=== PATIENT | male | born 1935 | race American Indian/Alaskan Native ===

== ENCOUNTER 2018-06-16 16:02 | Emergency (ER) | payer MEDICARE ==
[2018-06-16 17:45] LABS: Basophils % (Auto) 1.1 % (0.0-1.8); Eosinophils % (Auto) 2.6 % (0.0-4.3); Hematocrit 25.9 % (35.5-45.6); Hemoglobin 8.6 gm/dl (11.8-15.2); Lymphocytes # (Auto) 1.5 K/mm3 (1.2-5.4); Mean Corpuscular HGB Conc 33 % (32-34); Mean Corpuscular Hemoglobin 29 pg (28-32); Mean Corpuscular Volume 87 fl (84-94); Monocytes # (Auto) 0.7 K/mm3 (0.0-0.8); Monocytes % (Auto) 10.5 % (0.0-7.3); Platelet Count 321 K/mm3 (140-440); Red Blood Count 2.98 M/mm3 (3.65-5.03); Red Cell Distribution Width 15.6 % (13.2-15.2)
[2018-06-16 17:46] LABS: Basophils # (Auto) 0.1 K/mm3 (0.0-0.1); Eosinophils # (Auto) 0.2 K/mm3 (0.0-0.4)
[2018-06-16 17:59] LABS: BUN/Creatinine Ratio 15; Blood Urea Nitrogen 18 mg/dL (9-20); Calcium 8.3 mg/dL (8.4-10.2); Hemolysis Index 12
[2018-06-16 19:16] LABS: Bacteria,Urine 1+ /HPF (Negative); Bilirubin,Urine NEG (Negative); Blood,Urine NEG (Negative); Color,Urine Straw (Yellow); Mucus,Urine FEW /HPF; Protein,Urine <15 mg/dL mg/dL (Negative); Urobilinogen,Urine < 2.0 mg/dL (<2.0)
--- NOTE | 2018-06-16 19:30 | Emergency Department Report ---
ED General Adult HPI - General Chief complaint: Hypoglycemia Stated complaint: HYPOGLYCEMIA Time Seen by Provider: 06/16/18 16:57 Source: patient Mode of arrival: Stretcher Limitations: No Limitations - History of Present Illness Initial comments: Mr. Holley is an 83 yo male with history of eaf-glmmdpo-kexsjvbba diabetes who presents with hypoglycemia. He was found unresponsive by his family members. According to EMS, blood glucose was 20. he is taking glimepiride 2 mg tablets once daily. He stated that he has had a poor appetite although he has been in good health. He explains, "I feel good. I just don't each much of nothing." He feels well now. . Denies any pain or fever. Patient has a host of medical conditions. I reviewed EMR. - Related Data Home Medications Medication Instructions Recorded Confirmed Last Taken Albuterol Sulfate [Ventolin HFA] 1 puff IH QID PRN 05/11/18 05/11/18 Unknown Glimepiride [Amaryl] 2 mg PO QDAY 05/11/18 05/11/18 Unknown Ipratropium/Albuterol Sulfate 1 ampul IH Q6HR 05/11/18 05/11/18 Unknown [DUONEB *Not for PRN Use*] Previous Rx's Medication Instructions Recorded Last Taken Type Amiodarone [Cordarone 200 MG TAB] 200 mg PO BID #60 tablet 05/21/18 Unknown Rx Aspirin [Aspirin BABY CHEW TAB] 81 mg PO QDAY #30 tab.chew 05/21/18 Unknown Rx Carvedilol [Coreg] 6.25 mg PO BID #60 tablet 05/21/18 Unknown Rx Cilostazol [Pletal] 50 mg PO BID #60 tablet 05/21/18 Unknown Rx Furosemide [Lasix TAB] 40 mg PO DAILY #30 tablet 05/21/18 Unknown Rx Lisinopril [Zestril TAB] 5 mg PO QDAY #30 tablet 05/21/18 Unknown Rx Potassium Chloride [K-Dur] 20 meq PO QDAY #30 tablet 05/21/18 Unknown Rx Pravastatin [Pravachol] 40 mg PO QHS #30 tablet 05/21/18 Unknown Rx amLODIPine [Norvasc] 10 mg PO DAILY #30 tablet 05/21/18 Unknown Rx Allergies Allergy/AdvReac Type Severity Reaction Status Date / Time No Known Allergies Allergy Unverified 01/10/15 13:46 ED Review of Systems ROS: Stated complaint: HYPOGLYCEMIA Other details as noted in HPI Comment: All other systems reviewed and negative Constitutional: denies: fever, malaise Cardiovascular: denies: chest pain ED Past Medical Hx - Past Medical History Hx Hypertension: Yes Hx Congestive Heart Failure: Yes (10-12 yrs ago) Hx Diabetes: Yes Hx Asthma: No Hx COPD: No - Surgical History Hx Pacemaker: Yes (AICD) Hx Internal Defibrillator: Yes - Social History Smoking Status: Former Smoker Substance Use Type: None - Medications Home Medications: Home Medications Medication Instructions Recorded Confirmed Last Taken Type Albuterol Sulfate [Ventolin HFA] 1 puff IH QID PRN 05/11/18 05/11/18 Unknown History Glimepiride [Amaryl] 2 mg PO QDAY 05/11/18 05/11/18 Unknown History Ipratropium/Albuterol Sulfate 1 ampul IH Q6HR 05/11/18 05/11/18 Unknown History [DUONEB *Not for PRN Use*] Amiodarone [Cordarone 200 MG TAB] 200 mg PO BID #60 tablet 05/21/18 Unknown Rx Aspirin [Aspirin BABY CHEW TAB] 81 mg PO QDAY #30 tab.chew 05/21/18 Unknown Rx Carvedilol [Coreg] 6.25 mg PO BID #60 tablet 05/21/18 Unknown Rx Cilostazol [Pletal] 50 mg PO BID #60 tablet 05/21/18 Unknown Rx Furosemide [Lasix TAB] 40 mg PO DAILY #30 tablet 05/21/18 Unknown Rx Lisinopril [Zestril TAB] 5 mg PO QDAY #30 tablet 05/21/18 Unknown Rx Potassium Chloride [K-Dur] 20 meq PO QDAY #30 tablet 05/21/18 Unknown Rx Pravastatin [Pravachol] 40 mg PO QHS #30 tablet 05/21/18 Unknown Rx amLODIPine [Norvasc] 10 mg PO DAILY #30 tablet 05/21/18 Unknown Rx ED Physical Exam - General Limitations: No Limitations General appearance: alert, in no apparent distress, other (eating sandwich alert , talkative) - Head Head exam: Present: atraumatic, normocephalic - Eye Eye exam: Present: normal appearance - ENT ENT exam: Present: mucous membranes moist - Neck Neck exam: Present: normal inspection. Absent: tenderness, meningismus - Respiratory Respiratory exam: Present: normal lung sounds bilaterally. Absent: respiratory distress, wheezes, rales, rhonchi - Cardiovascular Cardiovascular Exam: Present: regular rate, normal rhythm, normal heart sounds. Absent: systolic murmur, diastolic murmur, rubs, gallop - GI/Abdominal GI/Abdominal exam: Present: soft. Absent: distended, tenderness - Rectal Rectal exam: Present: deferred - Extremities Exam Extremities exam: Present: full ROM - Neurological Exam Neurological exam: Present: alert, oriented X3 - Psychiatric Psychiatric exam: Present: normal affect, normal mood - Skin Skin exam: Present: warm, dry, intact, normal color. Absent: rash ED Course Vital Signs 06/16/18 16:46 Temperature 98.2 F Pulse Rate 59 L Respiratory 18 Rate Blood Pressure 141/67 O2 Sat by Pulse 100 Oximetry ED Medical Decision Making - Lab Data Result diagrams: 06/16/18 17:26 06/16/18 17:26 Laboratory Results - last 24 hr 06/16/18 06/16/18 06/16/18 16:43 17:26 17:26 WBC 6.5 RBC 2.98 L Hgb 8.6 L Hct 25.9 L MCV 87 MCH 29 MCHC 33 RDW 15.6 H Plt Count 321 Lymph % (Auto) 23.0 [facility] % (Auto) 10.5 H Eos % (Auto) 2.6 Baso % (Auto) 1.1 Lymph # 1.5 [facility] # 0.7 Eos # 0.2 Baso # 0.1 Seg Neutrophils % 62.8 Seg Neutrophils # 4.1 Sodium 134 L Potassium 3.8 Chloride 104.3 Carbon Dioxide 21 L Anion Gap 13 BUN 18 Creatinine 1.2 Estimated GFR > 60 BUN/Creatinine Ratio 15 Glucose 63 L POC Glucose 72 Calcium 8.3 L Urine Color Urine Turbidity Urine pH Ur Specific [place] Urine Protein Urine Glucose (UA) Urine Ketones Urine Blood Urine Nitrite Urine Bilirubin Urine Urobilinogen Ur Leukocyte Esterase Urine WBC (Auto) Urine RBC (Auto) U Epithel Cells (Auto) Urine Bacteria (Auto) Urine Mucus 06/16/18 06/16/18 18:45 18:50 WBC RBC Hgb Hct MCV MCH MCHC RDW Plt Count Lymph % (Auto) [facility] % (Auto) Eos % (Auto) Baso % (Auto) Lymph # [facility] # Eos # Baso # Seg Neutrophils % Seg Neutrophils # Sodium Potassium Chloride Carbon Dioxide Anion Gap BUN Creatinine Estimated GFR BUN/Creatinine Ratio Glucose POC Glucose 112 H Calcium Urine Color Straw Urine Turbidity Clear Urine pH 5.0 Ur Specific [place] 1.005 Urine Protein <15 mg/dl Urine Glucose (UA) Neg Urine Ketones Neg Urine Blood Neg Urine Nitrite Neg Urine Bilirubin Neg Urine Urobilinogen < 2.0 Ur Leukocyte Esterase Neg Urine WBC (Auto) 2.0 Urine RBC (Auto) 4.0 U Epithel Cells (Auto) 1.0 Urine Bacteria (Auto) 1+ Urine Mucus Few - Medical Decision Making Mr. Holley has hypoglycemia caused by decreased food intake and second- generation sulfonylurea, glimepiride. Normal kidney function on today's labs. Anemia noted which is baseline for patient. He feels well. He ate a snack. According to literature search, Peak of effect of glimepiride is 2-3 hours. Patient has been in ED for over 3 hours thus far. I have asked my colleague to observe Mr. Holley for 6-8 hours in the ED before discharge. I have also recommended to Mr. Holley that he should no longer use the medication Glimepiride. He checks his blood sugars daily. Normal reading range from 100-106 mg/dl Critical care attestation.: If time is entered above; I have spent that time in minutes in the direct care of this critically ill patient, excluding procedure time. ED Disposition Clinical Impression: Hypoglycemia Disposition: DC-01 TO HOME OR SELFCARE Is pt being admited?: No Does the pt Need Aspirin: No Condition: Stable Instructions: Diabetic Hypoglycemia (ED) Additional Instructions: Please stop taking your diabetes medication. This medication is called glimepiride.
[2018-06-16] MEDS ORDERED: ZOFRAN ONE (20:24)
[2018-06-16 23:36] VITALS: BP 129/61
== END 2018-06-16 22:45 | disposition home or self-care (01) ==
LOC: ED 16:02
DX: E11.649 Type 2 diabetes mellitus with hypoglycemia without coma (principal); I11.0 Hypertensive heart disease with heart failure; Z79.82 Long term (current) use of aspirin; Z95.0 Presence of cardiac pacemaker; Z87.891 Personal history of nicotine dependence
CPT/HCPCS: 36415; 80048; 81001; 82962; 85025; 99284; J2405

== ENCOUNTER 2019-04-21 18:45 | Inpatient (IN) | payer MEDICARE ==
--- NOTE | 2019-04-21 19:27 | Emergency Department Report ---
- General Chief complaint: Weakness Stated complaint: HYPOTENSION Time Seen by Provider: 04/21/19 19:00 Source: patient, EMS, old records reviewed Mode of arrival: Stretcher Limitations: Physical Limitation - History of Present Illness Initial comments: 84-year-old male with a past medical history of CHF with EF of 30-35% status post AICD, diabetes (not currently on meds) meds, and hypertension presents to the hospital with labile blood pressure and low glucose. Patient states he feels fine and that he is here because below. EMS reports that family has been checking blood pressure throughout the day and has been fluctuating between a low and normal read. Patient had a glucose of 63 upon EMS arrival he was given 15 g of instant glucose. Patient complains of a cough 1 week without fever. He has chronic leg edema that is unchanged. He reports decreased appetite and only had a small breakfast this a.m. He denies nausea, vomiting, chest pain, shortness of breath, or dysuria. PMD DR Santos. Drawing Tender: Dr. Barrientos. Systems Tester Dr. Rao patient does not see a zinc skimmer. Severity scale (0 -10): 0 - Related Data Home Medications Medication Instructions Recorded Confirmed Last Taken Albuterol Sulfate [Ventolin HFA] 1 puff IH QID PRN 05/11/18 05/11/18 Unknown Glimepiride [Amaryl] 2 mg PO QDAY 05/11/18 05/11/18 Unknown Ipratropium/Albuterol Sulfate 1 ampul IH Q6HR 05/11/18 05/11/18 Unknown [DUONEB *Not for PRN Use*] Previous Rx's Medication Instructions Recorded Last Taken Type Amiodarone [Cordarone 200 MG TAB] 200 mg PO BID #60 tablet 05/21/18 Unknown Rx Aspirin [Aspirin BABY CHEW TAB] 81 mg PO QDAY #30 tab.chew 05/21/18 Unknown Rx Carvedilol [Coreg] 6.25 mg PO BID #60 tablet 05/21/18 Unknown Rx Cilostazol [Pletal] 50 mg PO BID #60 tablet 05/21/18 Unknown Rx Furosemide [Lasix TAB] 40 mg PO DAILY #30 tablet 05/21/18 Unknown Rx Lisinopril [Zestril TAB] 5 mg PO QDAY #30 tablet 05/21/18 Unknown Rx Potassium Chloride [K-Dur] 20 meq PO QDAY #30 tablet 05/21/18 Unknown Rx Pravastatin [Pravachol] 40 mg PO QHS #30 tablet 05/21/18 Unknown Rx amLODIPine [Norvasc] 10 mg PO DAILY #30 tablet 05/21/18 Unknown Rx Allergies Allergy/AdvReac Type Severity Reaction Status Date / Time No Known Allergies Allergy Unverified 01/10/15 13:46 ED Review of Systems ROS: Stated complaint: HYPOTENSION Other details as noted in HPI Comment: All other systems reviewed and negative ED Past Medical Hx - Past Medical History Hx Hypertension: Yes Hx Congestive Heart Failure: Yes (10-12 yrs ago) Hx Diabetes: Yes Hx Asthma: No Hx COPD: No - Surgical History Hx Pacemaker: Yes (AICD) Hx Internal Defibrillator: Yes - Social History Smoking Status: Never Smoker - Medications Home Medications: Home Medications Medication Instructions Recorded Confirmed Last Taken Type Albuterol Sulfate [Ventolin HFA] 1 puff IH QID PRN 05/11/18 05/11/18 Unknown History Glimepiride [Amaryl] 2 mg PO QDAY 05/11/18 05/11/18 Unknown History Ipratropium/Albuterol Sulfate 1 ampul IH Q6HR 05/11/18 05/11/18 Unknown History [DUONEB *Not for PRN Use*] Amiodarone [Cordarone 200 MG TAB] 200 mg PO BID #60 tablet 05/21/18 Unknown Rx Aspirin [Aspirin BABY CHEW TAB] 81 mg PO QDAY #30 tab.chew 05/21/18 Unknown Rx Carvedilol [Coreg] 6.25 mg PO BID #60 tablet 05/21/18 Unknown Rx Cilostazol [Pletal] 50 mg PO BID #60 tablet 05/21/18 Unknown Rx Furosemide [Lasix TAB] 40 mg PO DAILY #30 tablet 05/21/18 Unknown Rx Lisinopril [Zestril TAB] 5 mg PO QDAY #30 tablet 05/21/18 Unknown Rx Potassium Chloride [K-Dur] 20 meq PO QDAY #30 tablet 05/21/18 Unknown Rx Pravastatin [Pravachol] 40 mg PO QHS #30 tablet 05/21/18 Unknown Rx amLODIPine [Norvasc] 10 mg PO DAILY #30 tablet 05/21/18 Unknown Rx ED Physical Exam - General Limitations: Physical Limitation - Other Other exam information: General: No limitations, patient is alert in no acute distress Head exam: Atraumatic, normocephalic Eyes exam: Normal appearance, pupils equal reactive to light, extraocular movements intact ENT: Moist mucous membrane, normal oropharynx Neck exam: Normal inspection, full range of motion, no meningismus nontender Respiratory exam: Clear to auscultation bilateral, no wheezes, rales, crackles, pacemaker to left chest wall Cardiovascular: Normal rate and rhythm Abdomen: Soft, nondistended, and nontender, with normal bowel sounds, no rebound, or guarding Extremity: Bilateral leg edema was equal bilaterally without calf tenderness Back: Normal Inspection, full range of motion, no tenderness Neurologic: Alert, oriented x3, cranial nerves intact, no motor or sensory deficit Psychiatric: normal affect, normal mood Skin: Warm, dry, intact ED Course Vital Signs 04/21/19 04/21/19 04/21/19 19:08 19:16 19:30 Temperature 98.3 F Pulse Rate 80 82 81 Respiratory 14 15 20 Rate Blood Pressure 100/37 100/37 Blood Pressure 100/37 [Left] O2 Sat by Pulse 97 100 98 Oximetry 04/21/19 04/21/19 04/21/19 19:46 20:00 20:16 Temperature Pulse Rate 78 76 83 Respiratory 18 20 16 Rate Blood Pressure 100/37 82/41 88/41 Blood Pressure [Left] O2 Sat by Pulse 99 100 99 Oximetry 04/21/19 04/21/19 04/21/19 20:30 20:46 21:00 Temperature Pulse Rate 82 81 82 Respiratory 24 26 H 19 Rate Blood Pressure 88/41 88/41 92/46 Blood Pressure [Left] O2 Sat by Pulse 98 97 95 Oximetry 04/21/19 04/21/19 04/21/19 21:16 21:30 21:46 Temperature Pulse Rate 79 78 81 Respiratory 21 14 21 Rate Blood Pressure 100/40 100/40 90/41 Blood Pressure [Left] O2 Sat by Pulse 93 95 96 Oximetry 04/21/19 04/21/19 04/21/19 22:00 22:16 22:30 Temperature Pulse Rate 83 82 84 Respiratory 22 18 20 Rate Blood Pressure 99/48 90/41 90/41 Blood Pressure [Left] O2 Sat by Pulse 97 99 100 Oximetry 04/21/19 04/21/1904/21/19 22:46 23:00 23:07 Temperature Pulse Rate 83 82 Respiratory 20 17 16 Rate Blood Pressure 82/43 92/39 Blood Pressure [Left] O2 Sat by Pulse 98 99 98 Oximetry 04/22/19 00:00 Temperature 98.3 F Pulse Rate Respiratory Rate Blood Pressure Blood Pressure [Left] O2 Sat by Pulse Oximetry - Reevaluation(s) Reevaluation #1: 04/21/19 21:26 Patient received 500 mL bolus of fluid for systolic pressure in the 80s. Systolic blood pressure increased to 100. Additional 500 mL bolus ordered. Patient is not short of breath at this time. Nurse's unable to pass a Meyer coude was also attempted. Patient denies any difficulty urinating and does not have any clinical signs of urinary retention on palpation. Condom cath placed. - Consultations Consultation #1: 04/21/19 20:[address] Antonio since he is covering Dr Santos's patients until April 24. Dr. Antonio requests admission to the hospitalist. - Central Line Placement Right Femoral Consent Obtained: written consent Time Out Performed: Yes Patient Placed on Monitor/Pulse Ox: Yes Prep: mask, gown, gloves Central Line Prep: Chlorhexidine scrub, sterile drapes applied Local Anesthesia Used: Lidocaine 1% Amount of Anesthesia Used (mls): 5 Ultrasound Used for Placement: Yes Central Line Lumen Inserted: triple Bloods Obtained for Lab: Yes Central Line Position: good blood return, all ports aspirated, flus, sutured in place with nyl Dressing Applied: Tegaderm Patient Tolerated Procedure: well Complications: arterial puncture/cannula (puncture without cannulation) Additional Comments: central line placed just after transfer to ICU ED Medical Decision Making - Lab Data Result diagrams: 04/21/19 19:29 04/21/19 19:29 Lab Results 04/21/19 04/21/19 04/21/19 Range/Units 19:18 19:29 19:29 WBC 14.6 H (4.5-11.0) K/mm3 RBC 3.26 L (3.65-5.03) M/mm3 Hgb 9.6 L (11.8-15.2) gm/dl Hct 28.1 L (35.5-45.6) % MCV 86 (84-94) fl MCH 29 (28-32) pg MCHC 34 (32-34) % RDW 15.5 H (13.2-15.2) % Plt Count 308 (140-440) K/mm3 Lymph % (Auto) 6.1 L (13.4-35.0) % [facility] [facility] % (Auto) 6.2 (0.0-7.3) % Eos % (Auto) 0.2 (0.0-4.3) % Baso % (Auto) 0.2 (0.0-1.8) % Lymph # 0.9 L (1.2-5.4) K/mm3 [facility] [facility] # 0.9 H (0.0-0.8) K/mm3 Eos # 0.0 (0.0-0.4) K/mm3 Baso # 0.0 (0.0-0.1) K/mm3 Seg Neutrophils % 87.3 H (40.0-70.0) % Seg Neutrophils # 12.7 H (1.8-7.7) K/mm3 PT (12.2-14.9) Sec. INR (0.87-1.13) APTT (24.2-36.6) Sec. Sodium 129 L (137-145) mmol/L Potassium 3.4 L (3.6-5.0) mmol/L Chloride 94.2 L (98-107) mmol/L Carbon Dioxide 18 L (22-30) mmol/L Anion Gap 20 mmol/L BUN 80 H (9-20) mg/dL Creatinine 6.0 H (0.8-1.5) mg/dL Estimated GFR 11 ml/min BUN/Creatinine Ratio 13 % Glucose 65 L (75-100) mg/dL POC Glucose 67 L (70-105) Calcium 8.7 (8.4-10.2) mg/dL Magnesium 2.20 (1.7-2.3) mg/dL Total Bilirubin 0.50 (0.1-1.2) mg/dL AST 45 H (5-40) units/L ALT 20 (7-56) units/L Alkaline Phosphatase 77 (35-129) units/L Total Creatine Kinase (55-170) units/L CK-MB (CK-2) (0.0-4.0) ng/mL CK-MB (CK-2) Rel Index (0-4) Troponin T (0.00-0.029) ng/mL Total Protein 7.4 (6.3-8.2) g/dL Albumin 3.0 L (3.9-5) g/dL Albumin/Globulin Ratio 0.7 % Triglycerides (2-149) mg/dL Cholesterol (50-199) mg/dL LDL Cholesterol Direct (50-130) mg/dL HDL Cholesterol (40-59) mg/dL Cholesterol/HDL Ratio % 04/21/19 04/21/19 04/21/19 Range/Units 19:29 19:29 20:45 WBC (4.5-11.0) K/mm3 RBC (3.65-5.03) M/mm3 Hgb (11.8-15.2) gm/dl Hct (35.5-45.6) % MCV (84-94) fl MCH (28-32) pg MCHC (32-34) % RDW (13.2-15.2) % Plt Count (140-440) K/mm3 Lymph % (Auto) (13.4-35.0) % [facility] % (Auto) (0.0-7.3) % Eos % (Auto) (0.0-4.3) % Baso % (Auto) (0.0-1.8) % Lymph # (1.2-5.4) K/mm3 [facility] # (0.0-0.8) K/mm3 Eos # (0.0-0.4) K/mm3 Baso # (0.0-0.1) K/mm3 Seg Neutrophils % (40.0-70.0) % Seg Neutrophils # (1.8-7.7) K/mm3 PT 15.1 H (12.2-14.9) Sec. INR 1.22 H (0.87-1.13) APTT 25.3 (24.2-36.6) Sec. Sodium (137-145) mmol/L Potassium (3.6-5.0) mmol/L Chloride (98-107) mmol/L Carbon Dioxide (22-30) mmol/L Anion Gap mmol/L BUN (9-20) mg/dL Creatinine (0.8-1.5) mg/dL Estimated GFR ml/min BUN/Creatinine Ratio % Glucose (75-100) mg/dL POC Glucose 56 L (70-105) Calcium (8.4-10.2) mg/dL Magnesium (1.7-2.3) mg/dL Total Bilirubin (0.1-1.2) mg/dL AST (5-40) units/L ALT (7-56) units/L Alkaline Phosphatase (35-129) units/L Total Creatine Kinase 1462 H (55-170) units/L CK-MB (CK-2) 10.4 H (0.0-4.0) ng/mL CK-MB (CK-2) Rel Index 0.7 (0-4) Troponin T 0.126 H* (0.00-0.029) ng/mL Total Protein (6.3-8.2) g/dL Albumin (3.9-5) g/dL Albumin/Globulin Ratio % Triglycerides 64 (2-149) mg/dL Cholesterol 105 (50-199) mg/dL LDL Cholesterol Direct 45 L (50-130) mg/dL HDL Cholesterol 47 (40-59) mg/dL Cholesterol/HDL Ratio 2.23 % - EKG Data -: EKG Interpreted by [facility] EKG shows normal: sinus rhythm, axis (qrs -69), QRS complexes (qrsd 130), ST-T waves (no stemi) Rate: normal (81) - EKG Data When compared to previous EKG there are: no significant change - Radiology Data Radiology results: report reviewed CHEST 1 VIEW 7:33 PM INDICATION / CLINICAL INFORMATION: Weakness. COMPARISON: 05/11/2018. FINDINGS: SUPPORT DEVICES: The position of the single lead left subclavian ICD has not changed. HEART / MEDIASTINUM: There is mild cardiomegaly with a left ventricular configuration. Calcification is present in the aortic arch without aneurysm. LUNGS / PLEURA: No acute parenchymal or pleural disease is seen. No pneumothorax. ADDITIONAL FINDINGS: No significant additional findings. IMPRESSION: No acute abnormality or significant change. - Medical Decision Making Patient with borderline hypotension that appears to be responsive to IV fluid boluses at this time. Patient presents with acute renal failure with uremia and borderline hypoglycemia. Awaiting urine collection at this. Patient to the hospitalist service and Dr. Santos is out of town (Dr Antonio requests hospitalist admission). Elevated troponin noted in likely related to acute renal insufficiency. Repeat pending. Thyroid tests and cortisol also pending at disposition. - Differential Diagnosis infection, dehydration, overmedication, arrhythmia,mi Critical Care Time: No Critical care attestation.: If time is entered above; I have spent that time in minutes in the direct care of this critically ill patient, excluding procedure time. ED Disposition Clinical Impression: Acute renal failure, Hyponatremia, Hypoglycemia, Elevated CK, Elevated troponin, Anemia, Chronic CHF Disposition: OP ADMIT IP TO THIS HOSP Is pt being admited?: Yes Condition: Stable Time of Disposition: 21:24 (Dr. Caballero/hospitalist)
[2019-04-21 19:45] LABS: Basophils % (Auto) 0.2 % (0.0-1.8); Eosinophils % (Auto) 0.2 % (0.0-4.3); Hematocrit 28.1 % (35.5-45.6); Hemoglobin 9.6 gm/dl (11.8-15.2); Lymphocytes # (Auto) 0.9 K/mm3 (1.2-5.4); Lymphocytes % (Auto) 6.1 % (13.4-35.0); Mean Corpuscular HGB Conc 34 % (32-34); Mean Corpuscular Volume 86 fl (84-94); Monocytes # (Auto) 0.9 K/mm3 (0.0-0.8); Monocytes % (Auto) 6.2 % (0.0-7.3); Platelet Count 308 K/mm3 (140-440); Red Blood Count 3.26 M/mm3 (3.65-5.03); Red Cell Distribution Width 15.5 % (13.2-15.2)
[2019-04-21 19:56] LABS: INR 1.22 (0.87-1.13)
[2019-04-21 19:57] LABS: Partial Thromboplastin Time 25.3 Sec. (24.2-36.6)
[2019-04-21 20:02] LABS: Creatine Kinase MB 10.4 ng/mL (0.0-4.0)
[2019-04-21 20:03] LABS: Calcium 8.7 mg/dL (8.4-10.2)
[2019-04-21] MEDS ORDERED: ASPIRIN PO ONE (20:10)
[2019-04-21] MEDS ORDERED: NACL 0.9% 500 ML 500 ML IV ONE ×2 (20:13→21:07)
[2019-04-21] MEDS ORDERED: NACL 0.9% 500 ML 500 ML ONE (20:15)
[2019-04-21] MEDS ORDERED: D50W (25GM) Vial IV ONE (20:41)
[2019-04-21 20:44] LABS: Chol/HDL Ratio 2.23 %
[2019-04-21] MEDS ORDERED: D50W (25GM) Syringe IV ONE (20:45)
--- NOTE | 2019-04-21 21:04 | XRay Report ---
CHEST 1 VIEW 7:33 PM INDICATION / CLINICAL INFORMATION: Weakness. COMPARISON: 05/11/2018. FINDINGS: SUPPORT DEVICES: The position of the single lead left subclavian ICD has not changed. HEART / MEDIASTINUM: There is mild cardiomegaly with a left ventricular configuration. Calcification is present in the aortic arch without aneurysm. LUNGS / PLEURA: No acute parenchymal or pleural disease is seen. No pneumothorax. ADDITIONAL FINDINGS: No significant additional findings. IMPRESSION: No acute abnormality or significant change. Signer Name: Brock Landa MD Signed: 04/21/2019 9:00 PM Workstation Name: [id number]
[2019-04-21 22:02] LABS: Free T4 (Free Thyroxine) 1.71 ng/dL (0.76-1.46)
[2019-04-21] MEDS ORDERED: ZOSYN/NS 2.25 GM/50ML 2.25 GM/50 ML BAG IV ONE (22:07)
--- NOTE | 2019-04-21 22:10 | History and Physical Report ---
History of Present Illness Date of examination: 04/21/19 History of present illness: 84-year-old male with a history of CHF, coronary artery disease, diabetes, hypertension, hyperlipidemia, PVD was brought to the emergency room by family because of generalized weakness. His blood sugar and blood pressure were low at home. He has poor appetite over the last 2 months, only at breakfast today, took his medications. He needs assistance to ambulate Review of systems Constitutional: no weight loss, chills, fever Ears, eyes, nose, mouth and throat: no nasal congestion, no nasal discharge, no sinus pressure, no vision change, no red eye. Neck: No neck pain or rigidity. Cardiovascular: no palpitations, chest pain Respiratory: no cough, shortness of breath Gastrointestinal: no hematochezia, abdominal pain Genitourinary : no frequency , no hematuria Musculoskeletal: no joint swelling or muscle ache Integumentary: no rash, no pruritis Neurological: no parathesias, no focal weakness Endocrine: no cold or heat intolerance, no polyuria or polydipsia Hematologic/Lymphatic: no easy bruising, no easy bleeding, no gland swelling Allergic/Immunologic: no urticaria, no angioedema. PAST MEDICAL HISTORY:CAD, diabetes, hypertension, hyperlipidemia, PVD, CHF PAST SURGICAL HISTORY: AICD SOCIAL HISTORY: Denies alcohol, drugs, tobacco FAMILY HISTORY: Hypertension Medications and Allergies Allergies Allergy/AdvReac Type Severity Reaction Status Date / Time No Known Allergies Allergy Unverified 01/10/15 13:46 Home Medications Medication Instructions Recorded Confirmed Last Taken Type Albuterol Sulfate [Ventolin HFA] 1 puff IH QID PRN 05/11/18 05/11/18 Unknown History Glimepiride [Amaryl] 2 mg PO QDAY 05/11/18 05/11/18 Unknown History Ipratropium/Albuterol Sulfate 1 ampul IH Q6HR 05/11/18 05/11/18 Unknown History [DUONEB *Not for PRN Use*] Amiodarone [Cordarone 200 MG TAB] 200 mg PO BID #60 tablet 05/21/18 Unknown Rx Aspirin [Aspirin BABY CHEW TAB] 81 mg PO QDAY #30 tab.chew 05/21/18 Unknown Rx Carvedilol [Coreg] 6.25 mg PO BID #60 tablet 05/21/18 Unknown Rx Cilostazol [Pletal] 50 mg PO BID #60 tablet 05/21/18 Unknown Rx Furosemide [Lasix TAB] 40 mg PO DAILY #30 tablet 05/21/18 Unknown Rx Lisinopril [Zestril TAB] 5 mg PO QDAY #30 tablet 05/21/18 Unknown Rx Potassium Chloride [K-Dur] 20 meq PO QDAY #30 tablet 05/21/18 Unknown Rx Pravastatin [Pravachol] 40 mg PO QHS #30 tablet 05/21/18 Unknown Rx amLODIPine [Norvasc] 10 mg PO DAILY #30 tablet 05/21/18 Unknown Rx Active Meds: Active Medications Piperacillin Sod/Tazobactam Sod (Zosyn/Ns 2.25 Gm/50ml) 2.25 gm in 50 mls @ 100 mls/hr IV ONCE ONE; Protocol Stop: 04/21/19 22:36 Dextrose/Sodium Chloride (D5/0.45ns) 1,000 mls @ 50 mls/hr IV DIRECT ALICIA Exam - Physical Exam Narrative exam: General Apperance: The patient lying in bed, breathing comfortable HEENT: Normocephalic, atraumatic. Pupils equally round and reactive to light, EOMI, no sclericterus or JVD or thyromegaly or nodule. , no carotid bruit, mucous membranes moist, no exudate or erythema Heart: S1-S2, regular is rhythm Lungs: Clear to auscultation bilaterally, breathing comfortable Abdomen: Positive bowel sounds, soft, nontender, nondistended, no organomegaly Extremities: + edema, no cyanosis clubbing Skin: no rash, nodule, warm and dry Neuro: cranial nerves 2-12 intact, speech is fluent, moves all 4 extremities - Constitutional Vitals: Temp Pulse Resp BP Pulse Ox 98.3 F 83 22 99/48 97 04/21/19 19:08 04/21/19 22:00 04/21/19 22:00 04/21/19 22:00 04/21/19 22:00 Results - Labs CBC & Chem 7: 04/21/19 19:29 04/21/19 19:29 Labs: Abnormal lab results 04/21/19 04/21/19 04/21/19 Range/Units 19:18 19:29 19:29 WBC 14.6 H (4.5-11.0) K/mm3 RBC 3.26 L (3.65-5.03) M/mm3 Hgb 9.6 L (11.8-15.2) gm/dl Hct 28.1 L (35.5-45.6) % RDW 15.5 H (13.2-15.2) % Lymph % (Auto) 6.1 L (13.4-35.0) % Lymph # 0.9 L (1.2-5.4) K/mm3 Martin # 0.9 H (0.0-0.8) K/mm3 Seg Neutrophils % 87.3 H (40.0-70.0) % Seg Neutrophils # 12.7 H (1.8-7.7) K/mm3 PT (12.2-14.9) Sec. INR (0.87-1.13) Sodium 129 L (137-145) mmol/L Potassium 3.4 L (3.6-5.0) mmol/L Chloride 94.2 L (98-107) mmol/L Carbon Dioxide 18 L (22-30) mmol/L BUN 80 H (9-20) mg/dL Creatinine 6.0 H (0.8-1.5) mg/dL Glucose 65 L (75-100) mg/dL POC Glucose 67 L (70-105) AST 45 H (5-40) units/L Total Creatine Kinase (55-170) units/L CK-MB (CK-2) (0.0-4.0) ng/mL Troponin T (0.00-0.029) ng/mL Albumin 3.0 L (3.9-5) g/dL LDL Cholesterol Direct (50-130) mg/dL Free T4 (0.76-1.46) ng/dL 04/21/19 04/21/19 04/21/19 Range/Units 19:29 19:29 19:29 WBC (4.5-11.0) K/mm3 RBC (3.65-5.03) M/mm3 Hgb (11.8-15.2) gm/dl Hct (35.5-45.6) % RDW (13.2-15.2) % Lymph % (Auto) (13.4-35.0) % Lymph # (1.2-5.4) K/mm3 Martin # (0.0-0.8) K/mm3 Seg Neutrophils % (40.0-70.0) % Seg Neutrophils # (1.8-7.7) K/mm3 PT 15.1 H (12.2-14.9) Sec. INR 1.22 H (0.87-1.13) Sodium (137-145) mmol/L Potassium (3.6-5.0) mmol/L Chloride (98-107) mmol/L Carbon Dioxide (22-30) mmol/L BUN (9-20) mg/dL Creatinine (0.8-1.5) mg/dL Glucose (75-100) mg/dL POC Glucose (70-105) AST (5-40) units/L Total Creatine Kinase 1462 H (55-170) units/L CK-MB (CK-2) 10.4 H (0.0-4.0) ng/mL Troponin T 0.126 H* (0.00-0.029) ng/mL Albumin (3.9-5) g/dL LDL Cholesterol Direct 45 L (50-130) mg/dL Free T4 1.71 H (0.76-1.46) ng/dL 04/21/19 Range/Units 20:45 WBC (4.5-11.0) K/mm3 RBC (3.65-5.03) M/mm3 Hgb (11.8-15.2) gm/dl Hct (35.5-45.6) % RDW (13.2-15.2) % Lymph % (Auto) (13.4-35.0) % Lymph # (1.2-5.4) K/mm3 Martin # (0.0-0.8) K/mm3 Seg Neutrophils % (40.0-70.0) % Seg Neutrophils # (1.8-7.7) K/mm3 PT (12.2-14.9) Sec. INR (0.87-1.13) Sodium (137-145) mmol/L Potassium (3.6-5.0) mmol/L Chloride (98-107) mmol/L Carbon Dioxide (22-30) mmol/L BUN (9-20) mg/dL Creatinine (0.8-1.5) mg/dL Glucose (75-100) mg/dL POC Glucose 56 L (70-105) AST (5-40) units/L Total Creatine Kinase (55-170) units/L CK-MB (CK-2) (0.0-4.0) ng/mL Troponin T (0.00-0.029) ng/mL Albumin (3.9-5) g/dL LDL Cholesterol Direct (50-130) mg/dL Free T4 (0.76-1.46) ng/dL - Imaging and Cardiology EKG: image reviewed Chest x-ray: report reviewed Assessment and Plan Assessment Acute renal failure on chronic Hypotension, source unclear at this point SIRS Abnormal cardiac enzymes hypoglycemia secondary to poor appetite Rhabdomyolysis CHF, stable Coronary Artery disease Hyperlipidemia Peripheral vascular disease Plan Admit to medicine Start gentle IV fluid, renal was consulted to see the patient Cardiac enzymes, echo, consult cardiology monitor blood sugar, encourage oral intake Hold all antihypertensives and diabetic medications Check urinalysis, blood cultures, give a dose of Zosyn DVT prophylaxis Addendum Patient became more hypotensive with fluid resuscitation Start dopamine drip, consult critical care Upgrade to ICU
[2019-04-21] MEDS ORDERED: ZOFRAN IV PRN (22:11)
[2019-04-21] MEDS ORDERED: SODIUM CHLORIDE FLUSH SYRINGE 10 ML IV PRN (22:11)
[2019-04-21 22:55] LABS: Creatine Kinase MB 11.2 ng/mL (0.0-4.0)
[2019-04-21] MEDS ORDERED: D5/0.45NS 1,000 ML IV SCH (23:00)
[2019-04-21] MEDS ORDERED: D5W 1,000 ML IV ONE (23:25)
[2019-04-21] MEDS ORDERED: D5NS 1,000 ML IV SCH (23:45)
--- NOTE | 2019-04-21 23:56 | Consultation ---
History of Present Illness - Reason for Consult Consult date: 04/21/19 acute renal failure, hypokalemia - History of Present Illness The patient is an 84 Yo male with history significant for Diabetes, Hypertension, Hyperlipidemia, CAD, CHF and PVD who was brought to the emergency room by family for evaluation of generalized weakness. Patient is a poor historian and there was no family member at the bedside. He has poor appetite over the last 2 months with poor PO intake. he is taking his medications. His blood sugar and blood pressure were low at home. In the ED his BP was low around 80/40. Labs were significant for creatinine 6, K 3.4, Sodium 129 and bicarb 18. Nephrology was consulted for further evaluation. Past History Past Medical History: CAD, diabetes, heart failure, hypertension, hyperlipidemia Medications and Allergies Allergies Allergy/AdvReac Type Severity Reaction Status Date / Time No Known Allergies Allergy Unverified 01/10/15 13:46 Home Medications Medication Instructions Recorded Confirmed Last Taken Type Albuterol Sulfate [Ventolin HFA] 1 puff IH QID PRN 05/11/18 05/11/18 Unknown History Glimepiride [Amaryl] 2 mg PO QDAY 05/11/18 05/11/18 Unknown History Ipratropium/Albuterol Sulfate 1 ampul IH Q6HR 05/11/18 05/11/18 Unknown History [DUONEB *Not for PRN Use*] Amiodarone [Cordarone 200 MG TAB] 200 mg PO BID #60 tablet 05/21/18 Unknown Rx Aspirin [Aspirin BABY CHEW TAB] 81 mg PO QDAY #30 tab.chew 05/21/18 Unknown Rx Carvedilol [Coreg] 6.25 mg PO BID #60 tablet 05/21/18 Unknown Rx Cilostazol [Pletal] 50 mg PO BID #60 tablet 05/21/18 Unknown Rx Furosemide [Lasix TAB] 40 mg PO DAILY #30 tablet 05/21/18 Unknown Rx Lisinopril [Zestril TAB] 5 mg PO QDAY #30 tablet 05/21/18 Unknown Rx Potassium Chloride [K-Dur] 20 meq PO QDAY #30 tablet 05/21/18 Unknown Rx Pravastatin [Pravachol] 40 mg PO QHS #30 tablet 05/21/18 Unknown Rx amLODIPine [Norvasc] 10 mg PO DAILY #30 tablet 05/21/18 Unknown Rx Active Meds: Active Medications Acetaminophen (Tylenol) 650 mg PO Q4H PRN PRN Reason: Pain MILD(1-3)/Fever >100.5/BLAKE Enoxaparin Sodium (Lovenox) 30 mg SUB-Q QDAY ALICIA Dextrose/Sodium Chloride (D5ns) 1,000 mls @ 50 mls/hr IV DIRECT ALICIA Ondansetron HCl (Zofran) 4 mg IV Q4H PRN PRN Reason: Nausea And Vomiting Sodium Chloride (Sodium Chloride Flush Syringe 10 Ml) 10 ml IV BID ALICIA Sodium Chloride (Sodium Chloride Flush Syringe 10 Ml) 10 ml IV PRN PRN PRN Reason: LINE FLUSH Exam - Vital Signs Vital signs: Vital Signs Temp Pulse Resp BP Pulse Ox 98.3 F 80 14 100/37 97 04/21/19 19:08 04/21/19 19:08 04/21/19 19:08 04/21/19 19:08 04/21/19 19:08 - General Appearance General appearance: well-developed, well-nourished, appears stated age, other (no distress) EENT: ATNC, PERRL, hearing diminished Neck: Present: neck supple, trachea midline Respiratory: Clear to Ascultation Heart: regular, S1S2, no murmurs Gastrointestinal: Present: normoactive bowel sounds, obese, other (condom catheter). Absent: tenderness, distended Neurologic: confused, disoriented, other (able to move extremities) Musculoskeletal: Present: other (b/l LE edema noted) Results - Lab Results 04/21/19 19:29 04/21/19 19:29 Most recent lab results Calcium 8.7 mg/dL (8.4-10.2) 04/21/19 19:29 Magnesium 2.20 mg/dL (1.7-2.3) 04/21/19 19:29 - Image Kidney/bladder ultrasound: pending Assessment and Plan 1. Acute kidney injury: Suspect vasomotor SOFYA in the setting of hypotension. Suspect background CKD. Urine studies and Renal US ordered. Continue IV fluids. Monitor renal function. Renal prognosis is guarded. Avoid nephrotoxic agents. Meds dosage based on GFR. 2. FEN: Hypokalemia, replete K. Anion gap MA, 2/2 SOFYA. Continue IV fluids. Monitor lytes. 3. Hypotension / shock: Pressors. 4. Suspected sepsis. 5. Hypoglycemia. 6. H/o CHF. 7. Anemia: Monitor H/H.
[2019-04-22] MEDS: INTROPIN DRIP 800 MG/D5W 250 ML 800 MG/250 ML BAG IV SCH ×2 (01:13→17:23)
[2019-04-22] MEDS ORDERED: K-DUR PO ONE (01:14)
[2019-04-22 04:52] LABS: Mean Corpuscular HGB Conc 34 % (32-34); Mean Corpuscular Volume 86 fl (84-94); Platelet Count 291 K/mm3 (140-440); Red Blood Count 3.72 M/mm3 (3.65-5.03); Red Cell Distribution Width 15.8 % (13.2-15.2)
[2019-04-22 05:16] LABS: Creatine Kinase MB 11.9 ng/mL (0.0-4.0)
[2019-04-22] MEDS ORDERED: D50W (25GM) Syringe IV ONE ×2 (07:55→08:00)
[2019-04-22] MEDS ORDERED: D50W (25GM) Vial IV PRN (08:01)
--- NOTE | 2019-04-22 09:03 | Progress Note ---
Assessment and Plan Assessment and plan: Assessment Acute kidney injury Hypotension, etiology unclear at this point Abnormal cardiac enzymes hypoglycemia secondary to poor appetite and Glimepiride Rhabdomyolysis CHF, stable Coronary Artery disease Hyperlipidemia Peripheral vascular disease Plan Admitted to ICU Started gentle IV fluid, Nephrology following Cardiac enzymes, echo, consulted cardiology monitor blood sugar, encourage oral intake Hold all antihypertensives and diabetic medications Check urinalysis, blood cultures, DVT prophylaxis with Lovenox. History Interval history: Generalized weakness Low blood glucose Hospitalist Physical - Physical exam Narrative exam: Gen: Not in acute distress, lying in bed,obese HEENT: Normocephalic, atraumatic Neck: supple, no JVD Heart: S1 and S2 reg, no murmurs, rubs or gallop Lungs: Clear, no crackles, no wheeze Abd: soft, non tender, non distended, normal BS Ext: No edema, no clubbing, no cyanosis, Neuro: Awake,alert, moves all ext, non focal - Constitutional Vitals: Temp Pulse Resp BP Pulse Ox 97.5 F L 84 15 98/44 97 04/22/19 08:00 04/22/19 08:00 04/22/19 08:00 04/22/19 08:00 04/22/19 08:57 Results - Labs CBC & Chem 7: 04/22/19 04:05 04/22/19 04:05 Labs: Laboratory Last Values WBC 4.6 K/mm3 (4.5-11.0) 04/22/19 04:05 RBC 3.72 M/mm3 (3.65-5.03) 04/22/19 04:05 Hgb 11.0 gm/dl (11.8-15.2) L 04/22/19 04:05 Hct 32.0 % (35.5-45.6) L 04/22/19 04:05 MCV 86 fl (84-94) 04/22/19 04:05 MCH 29 pg (28-32) 04/22/19 04:05 MCHC 34 % (32-34) 04/22/19 04:05 RDW 15.8 % (13.2-15.2) H 04/22/19 04:05 Plt Count 291 K/mm3 (140-440) 04/22/19 04:05 Lymph % (Auto) 6.1 % (13.4-35.0) L 04/21/19 19:29 [place] % (Auto) 6.2 % (0.0-7.3) 04/21/19 19: Eos % (Auto) 0.2 % (0.0-4.3) 04/21/19 19:29 Baso % (Auto) 0.2 % (0.0-1.8) 04/21/19 19: Lymph # 0.9 K/mm3 (1.2-5.4) L 04/21/19 19:29 [place] # 0.9 K/mm3 (0.0-0.8) H 04/21/19 19: Eos # 0.0 K/mm3 (0.0-0.4) 04/21/19 19: Baso # 0.0 K/mm3 (0.0-0.1) 04/21/19 19: Seg Neutrophils % Loom Changeover Operator 04/22/19 04:05 Seg Neutrophils # 12.7 K/mm3 (1.8-7.7) H 04/21/19 19:29 PT 15.1 Sec. (12.2-14.9) H 04/21/19 19: INR 1.22 (0.87-1.13) H 04/21/19 19:29 APTT 25.3 Sec. (24.2-36.6) 04/21/19 19:29 Sodium 132 mmol/L (137-145) L 04/22/19 04:05 Potassium 3.4 mmol/L (3.6-5.0) L 04/22/19 04:05 Chloride 99.1 mmol/L (98-107) 04/22/19 04:05 Carbon Dioxide 18 mmol/L (22-30) L 04/22/19 04:05 18 mmol/L 04/22/19 04:05 BUN 74 mg/dL (9-20) H 04/22/19 04:05 4.8 mg/dL (0.8-1.5) H 04/22/19 04:05 Estimated GFR 14 ml/min 04/22/19 04:05 15 % 04/22/19 04:05 Glucose 48 mg/dL (75-100) L 04/22/19 04:05 POC Glucose 103 (70-105) 04/22/19 08:31 Calcium 9.0 mg/dL (8.4-10.2) 04/22/19 04:05 Phosphorus 3.50 mg/dL (2.5-4.5) 04/22/19 04:05 Magnesium 2.30 mg/dL (1.7-2.3) 04/22/19 04:05 0.50 mg/dL (0.1-1.2) 04/21/19 19:29 AST 45 units/L (5-40) H 04/21/19 19:29 ALT 20 units/L (7-56) 04/21/19 19:29 77 units/L (35-129) 04/21/19 19:29 1444 units/L (55-170) H 04/22/19 04:05 CK-MB (CK-2) 11.9 ng/mL (0.0-4.0) H 04/22/19 04:05 CK-MB (CK-2) Rel Index 0.8 (0-4) 04/22/19 04:05 0.097 ng/mL (0.00-0.029) H 04/22/19 04:05 7.4 g/dL (6.3-8.2) 04/21/19 19:29 3.0 g/dL (3.9-5) L 04/21/19 19:29 0.7 % 04/21/19 19:29 Triglycerides 64 mg/dL (2-149) 04/21/19 19:29 Cholesterol 105 mg/dL (50-199) 04/21/19 19:29 45 mg/dL (50-130) L 04/21/19 19:29 47 mg/dL (40-59) 04/21/19 19:29 2.23 % 04/21/19 19:29 TSH 1.410 mlU/mL (0.270-4.200) 04/21/19 19:29 Free T4 1.71 ng/dL (0.76-1.46) H 04/21/19 19:29 PTH Intact 60.08 pg/mL (15-65) 04/22/19 04:05 Active Medications - Current Medications Current Medications: Generic Name Dose Route Start Last Admin Trade Name Clare PRN Reason Stop Dose Admin Acetaminophen 650 mg 04/21/19 22:11 Tylenol PO Q4H PRN Pain MILD(1-3)/Fever >100.5/BLAKE Dextrose 25 gm 04/22/19 08:01 D50w (25gm) Vial IV PRN PRN Hypoglycemia Enoxaparin Sodium 30 mg 04/22/19 10:00 Lovenox SUB-Q QDAY ALICIA Dextrose/Sodium Chloride 1,000 mls @ 50 mls/hr 04/21/19 23:45 04/22/19 01:10 D5ns IV 50 mls/hr DIRECT ALICIA Administration Dopamine HCl/Dextrose 800 mg in 250 mls @ 3.608 mls/hr 04/22/19 01:15 04/22/19 06:51 Intropin Drip 800 Mg/D5w 250 Ml IV 10 mcg/kg/min TITR ALICIA 18.038 mls/hr Titration Protocol 2 MCG/KG/MIN Ondansetron HCl 4 mg 04/21/19 22:11 Zofran IV Q4H PRN Nausea And Vomiting Sodium Chloride 10 ml 04/22/19 10:00 Sodium Chloride Flush Syringe 10 Ml IV BID ALICIA Sodium Chloride 10 ml 04/21/19 22:11 Sodium Chloride Flush Syringe 10 Ml IV PRN PRN LINE FLUSH
[2019-04-22 09:26] LABS: Bacteria,Urine 2+ /HPF (Negative); Bilirubin,Urine NEG (Negative); Blood,Urine MOD (Negative); Color,Urine Yellow (Yellow); Mucus,Urine FEW /HPF; Protein,Urine <15 mg/dL mg/dL (Negative); Urobilinogen,Urine < 2.0 mg/dL (<2.0)
[2019-04-22 09:29] LABS: WBC,Urine > 182.0 /HPF (0.0-6.0)
--- NOTE | 2019-04-22 09:48 | Consultation ---
History of Present Illness - Reason for Consult Consult date: 04/22/19 Hypotension, requiring pressors Requesting physician: ALONSO ARBOLEDA - History of Present Illness 84 y/o male with known CHF, presented to the ED last night secondary to family request. Per patient, his blood sugar had been low but outside of that he felt fine. Per the chart, family had been checking his BP throughout the day and it had be fluctuating between normal and low. In the ED was hypotensive but asymptomatic. Central line placed and started on dopamine. Patient also found to have a UTI. Was given Zosyn in the ED. Spoke with night nurse and she was concerned about C. Diff but WC is normal. Past History Past Medical History: CAD, diabetes, heart failure, hypertension, hyperlipidemia Social history: no significant social history Family history: no significant family history Medications and Allergies Allergies Allergy/AdvReac Type Severity Reaction Status Date / Time No Known Allergies Allergy Unverified 01/10/15 13:46 Home Medications Medication Instructions Recorded Confirmed Last Taken Type Albuterol Sulfate [Ventolin HFA] 1 puff IH QID PRN 05/11/18 05/11/18 Unknown History Glimepiride [Amaryl] 2 mg PO QDAY 05/11/18 05/11/18 Unknown History Ipratropium/Albuterol Sulfate 1 ampul IH Q6HR 05/11/18 05/11/18 Unknown History [DUONEB *Not for PRN Use*] Amiodarone [Cordarone 200 MG TAB] 200 mg PO BID #60 tablet 05/21/18 Unknown Rx Aspirin [Aspirin BABY CHEW TAB] 81 mg PO QDAY #30 tab.chew 05/21/18 Unknown Rx Carvedilol [Coreg] 6.25 mg PO BID #60 tablet 05/21/18 Unknown Rx Cilostazol [Pletal] 50 mg PO BID #60 tablet 05/21/18 Unknown Rx Furosemide [Lasix TAB] 40 mg PO DAILY #30 tablet 05/21/18 Unknown Rx Lisinopril [Zestril TAB] 5 mg PO QDAY #30 tablet 05/21/18 Unknown Rx Potassium Chloride [K-Dur] 20 meq PO QDAY #30 tablet 05/21/18 Unknown Rx Pravastatin [Pravachol] 40 mg PO QHS #30 tablet 05/21/18 Unknown Rx amLODIPine [Norvasc] 10 mg PO DAILY #30 tablet 05/21/18 Unknown Rx Active Meds: Active Medications Acetaminophen (Tylenol) 650 mg PO Q4H PRN PRN Reason: Pain MILD(1-3)/Fever >100.5/BLAKE Dextrose (D50w (25gm) Vial) 25 gm IV PRN PRN PRN Reason: Hypoglycemia Enoxaparin Sodium (Lovenox) 30 mg SUB-Q QDAY ALICIA Dextrose/Sodium Chloride (D5ns) 1,000 mls @ 50 mls/hr IV DIRECT ALICIA Last Admin: 04/22/19 01:10 Dose: 50 mls/hr Documented by: Dopamine HCl/Dextrose (Intropin Drip 800 Mg/D5w 250 Ml) 800 mg in 250 mls @ 3.608 mls/hr IV TITR ALICIA; Protocol Last Titration: 04/22/19 06:51 Dose: 10 mcg/kg/min, 18.038 mls/hr Documented by: Ondansetron HCl (Zofran) 4 mg IV Q4H PRN PRN Reason: Nausea And Vomiting Sodium Chloride (Sodium Chloride Flush Syringe 10 Ml) 10 ml IV BID ALICIA Sodium Chloride (Sodium Chloride Flush Syringe 10 Ml) 10 ml IV PRN PRN PRN Reason: LINE FLUSH Review of Systems All systems: negative Exam - Constitutional Vitals: Temp Pulse Resp BP Pulse Ox 97.5 F L 84 15 98/44 97 04/22/19 08:00 04/22/19 08:00 04/22/19 08:00 04/22/19 08:00 04/22/19 08:57 General appearance: Present: no acute distress, well-nourished, obese - EENT Eyes: Present: PERRL ENT: hearing intact, poor dentition - Neck Neck: Present: supple, normal ROM - Respiratory Respiratory effort: normal Respiratory: bilateral: CTA - Cardiovascular Rhythm: regular Heart Sounds: Present: S1 & S2 Results - Labs CBC & Chem 7: 04/22/19 04:05 04/22/19 04:05 Labs: Abnormal lab results 04/21/19 04/21/19 04/21/19 Range/Units 19:18 19:29 19:29 WBC 14.6 H (4.5-11.0) K/mm3 RBC 3.26 L (3.65-5.03) M/mm3 Hgb 9.6 L (11.8-15.2) gm/dl Hct 28.1 L (35.5-45.6) % RDW 15.5 H (13.2-15.2) % Lymph % (Auto) 6.1 L (13.4-35.0) % Lymph # 0.9 L (1.2-5.4) K/mm3 [place] # 0.9 H (0.0-0.8) K/mm3 Seg Neutrophils % 87.3 H (40.0-70.0) % Seg Neutrophils # 12.7 H (1.8-7.7) K/mm3 PT (12.2-14.9) Sec. INR (0.87-1.13) Sodium 129 L (137-145) mmol/L Potassium 3.4 L (3.6-5.0) mmol/L Chloride 94.2 L (98-107) mmol/L Carbon Dioxide 18 L (22-30) mmol/L BUN 80 H (9-20) mg/dL Creatinine 6.0 H (0.8-1.5) mg/dL Glucose 65 L (75-100) mg/dL POC Glucose 67 L (70-105) AST 45 H (5-40) units/L Total Creatine Kinase (55-170) units/L CK-MB (CK-2) (0.0-4.0) ng/mL Troponin T (0.00-0.029) ng/mL Albumin 3.0 L (3.9-5) g/dL LDL Cholesterol Direct (50-130) mg/dL Free T4 (0.76-1.46) ng/dL Urine WBC (Auto) (0.0-6.0) /HPF 04/21/19 04/21/19 04/21/19 Range/Units 19:29 19:29 19:29 WBC (4.5-11.0) K/mm3 RBC (3.65-5.03) M/mm3 Hgb (11.8-15.2) gm/dl Hct (35.5-45.6) % RDW (13.2-15.2) % Lymph % (Auto) (13.4-35.0) % Lymph # (1.2-5.4) K/mm3 [place] # (0.0-0.8) K/mm3 Seg Neutrophils % (40.0-70.0) % Seg Neutrophils # (1.8-7.7) K/mm3 PT 15.1 H (12.2-14.9) Sec. INR 1.22 H (0.87-1.13) Sodium (137-145) mmol/L Potassium (3.6-5.0) mmol/L Chloride (98-107) mmol/L Carbon Dioxide (22-30) mmol/L BUN (9-20) mg/dL Creatinine (0.8-1.5) mg/dL Glucose (75-100) mg/dL POC Glucose (70-105) AST (5-40) units/L Total Creatine Kinase 1462 H (55-170) units/L CK-MB (CK-2) 10.4 H (0.0-4.0) ng/mL Troponin T 0.126 H* (0.00-0.029) ng/mL Albumin (3.9-5) g/dL LDL Cholesterol Direct 45 L (50-130) mg/dL Free T4 1.71 H (0.76-1.46) ng/dL Urine WBC (Auto) (0.0-6.0) /HPF 04/21/19 04/21/19 04/22/19 Range/Units 20:45 22:25 02:49 WBC (4.5-11.0) K/mm3 RBC (3.65-5.03) M/mm3 Hgb (11.8-15.2) gm/dl Hct (35.5-45.6) % RDW (13.2-15.2) % Lymph % (Auto) (13.4-35.0) % Lymph # (1.2-5.4) K/mm3 [place] # (0.0-0.8) K/mm3 Seg Neutrophils % (40.0-70.0) % Seg Neutrophils # (1.8-7.7) K/mm3 PT (12.2-14.9) Sec. INR (0.87-1.13) Sodium (137-145) mmol/L Potassium (3.6-5.0) mmol/L Chloride (98-107) mmol/L Carbon Dioxide (22-30) mmol/L BUN (9-20) mg/dL Creatinine (0.8-1.5) mg/dL Glucose (75-100) mg/dL POC Glucose 56 L 158 H (70-105) AST (5-40) units/L Total Creatine Kinase 1457 H (55-170) units/L CK-MB (CK-2) 11.2 H (0.0-4.0) ng/mL Troponin T 0.123 H* (0.00-0.029) ng/mL Albumin (3.9-5) g/dL LDL Cholesterol Direct (50-130) mg/dL Free T4 (0.76-1.46) ng/dL Urine WBC (Auto) (0.0-6.0) /HPF 04/22/19 04/22/19 04/22/19 Range/Units 04:05 04:05 04:05 WBC (4.5-11.0) K/mm3 RBC (3.65-5.03) M/mm3 Hgb 11.0 L (11.8-15.2) gm/dl Hct 32.0 L (35.5-45.6) % RDW 15.8 H (13.2-15.2) % Lymph % (Auto) (13.4-35.0) % Lymph # (1.2-5.4) K/mm3 [place] # (0.0-0.8) K/mm3 Seg Neutrophils % (40.0-70.0) % Seg Neutrophils # (1.8-7.7) K/mm3 PT (12.2-14.9) Sec. INR (0.87-1.13) Sodium 132 L (137-145) mmol/L Potassium 3.4 L (3.6-5.0) mmol/L Chloride (98-107) mmol/L Carbon Dioxide 18 L (22-30) mmol/L BUN 74 H (9-20) mg/dL Creatinine 4.8 H (0.8-1.5) mg/dL Glucose 48 L (75-100) mg/dL POC Glucose (70-105) AST (5-40) units/L Total Creatine Kinase 1444 H (55-170) units/L CK-MB (CK-2) 11.9 H (0.0-4.0) ng/mL Troponin T 0.097 H (0.00-0.029) ng/mL Albumin (3.9-5) g/dL LDL Cholesterol Direct (50-130) mg/dL Free T4 (0.76-1.46) ng/dL Urine WBC (Auto) (0.0-6.0) /HPF 04/22/19 04/22/19 Range/Units 07:57 08:40 WBC (4.5-11.0) K/mm3 RBC (3.65-5.03) M/mm3 Hgb (11.8-15.2) gm/dl Hct (35.5-45.6) % RDW (13.2-15.2) % Lymph % (Auto) (13.4-35.0) % Lymph # (1.2-5.4) K/mm3 [place] # (0.0-0.8) K/mm3 Seg Neutrophils % (40.0-70.0) % Seg Neutrophils # (1.8-7.7) K/mm3 PT (12.2-14.9) Sec. INR (0.87-1.13) Sodium (137-145) mmol/L Potassium (3.6-5.0) mmol/L Chloride (98-107) mmol/L Carbon Dioxide (22-30) mmol/L BUN (9-20) mg/dL Creatinine (0.8-1.5) mg/dL Glucose (75-100) mg/dL POC Glucose < 40 L (70-105) AST (5-40) units/L Total Creatine Kinase (55-170) units/L CK-MB (CK-2) (0.0-4.0) ng/mL Troponin T (0.00-0.029) ng/mL Albumin (3.9-5) g/dL LDL Cholesterol Direct (50-130) mg/dL Free T4 (0.76-1.46) ng/dL Urine WBC (Auto) > 182.0 H (0.0-6.0) /HPF - Imaging and Cardiology Chest x-ray: image reviewed (no evidence of acute disease) Assessment and Plan 84 y/o male with known systolic heart failure, diabetes admitted with low blood sugar, hypotension and presumed acute on chronic renal failure 1. Hypoglycemia: Likely secondary to oral hypoglycemic patient taking at home and now in renal failure. Continue D5 supplemental drip and increase the rate. Continue q2 hour FSBS. Have to wait for oral hypoglycemic to wash out. 2. Hypotension: Per patient this has been going on for a while. will hold all antihypertensives. Small fluid challenge with 500cc's of saline. Will attempt to wean for MAPs 60 and greater. 3. UTI: Will start BID rocephin. Need urine culture, likely pending. 4. WIll continue to follow with you. CCT 31 minutes.
[2019-04-22] MEDS: SODIUM CHLORIDE FLUSH SYRINGE 10 ML IV SCH ×2 (10:00→22:24)
[2019-04-22 10:08] LABS: Basophils % (Manual) 0 % (0.0-1.8); Monocytes % (Manual) 0 % (0.0-7.3); Total Cells Counted 100
[2019-04-22 10:09] LABS: Anisocytosis 1+; Hypochromasia 1+; Ovalocytes Few; Platelet Estimate Consistent w Auto
--- NOTE | 2019-04-22 10:46 | Consultation ---
History of Present Illness Consult date: 04/22/19 Requesting physician: JONATHAN MCKEON Consult reason: elevated troponin History of present illness: The pt is an 84 YO male with a past medical history of CAD s/p PCI to LAD in 2000, ICMP, VT, AICD in situ, HTN, HLP, DM, CKD. He is followed in our office by Dr. Wade. Per the chart, the pt presented to the ED last night secondary to family request. Per patient, his blood sugar had been and his appetite has been decreased. He has no other complaints. Per the chart, the pt's family had been checking his BP throughout the day and it had be fluctuating between normal and low. In the ED was found to have UTI and was hypotensive but asymptomatic. Central line placed and pt started on dopamine. Patient also noted to have elevated troponins and thus cardiology has been consulted. Echo done 05/2017 showed EF 25-30%, LA mod dilated, RA mildly dilated, trace MR, mild to mod TR, mild LVH. LHC 01/2015 showed nonobstructive CAD, 30-40% prox RCA, 25% mid RCA, 25% distal left circ, EF 40-45%. Past History Past Medical History: CAD, diabetes, heart failure, hypertension, hyperlipidemia Medications and Allergies Allergies Allergy/AdvReac Type Severity Reaction Status Date / Time No Known Allergies Allergy Unverified 01/10/15 13:46 Home Medications Medication Instructions Recorded Confirmed Last Taken Type Albuterol Sulfate [Ventolin HFA] 1 puff IH QID PRN 05/11/18 05/11/18 Unknown Hi story Glimepiride [Amaryl] 2 mg PO QDAY 05/11/18 05/11/18 Unknown History Ipratropium/Albuterol Sulfate 1 ampul IH Q6HR 05/11/18 05/11/18 Unknown History [DUONEB *Not for PRN Use*] Amiodarone [Cordarone 200 MG TAB] 200 mg PO BID #60 tablet 05/21/18 Unknown Rx Aspirin [Aspirin BABY CHEW TAB] 81 mg PO QDAY #30 tab.chew 05/21/18 Unknown Rx Carvedilol [Coreg] 6.25 mg PO BID #60 tablet 05/21/18 Unknown Rx Cilostazol [Pletal] 50 mg PO BID #60 tablet 05/21/18 Unknown Rx Furosemide [Lasix TAB] 40 mg PO DAILY #30 tablet 05/21/18 Unknown Rx Lisinopril [Zestril TAB] 5 mg PO QDAY #30 tablet 05/21/18 Unknown Rx Potassium Chloride [K-Dur] 20 meq PO QDAY #30 tablet 05/21/18 Unknown Rx Pravastatin [Pravachol] 40 mg PO QHS #30 tablet 05/21/18 Unknown Rx amLODIPine [Norvasc] 10 mg PO DAILY #30 tablet 05/21/18 Unknown Rx Active Meds: Active Medications Acetaminophen (Tylenol) 650 mg PO Q4H PRN PRN Reason: Pain MILD(1-3)/Fever >100.5/BLAKE Dextrose (D50w (25gm) Vial) 25 gm IV PRN PRN PRN Reason: Hypoglycemia Enoxaparin Sodium (Lovenox) 30 mg SUB-Q QDAY ALICIA Dextrose/Sodium Chloride (D5ns) 1,000 mls @ 50 mls/hr IV DIRECT ALICIA Last Admin: 04/22/19 01:10 Dose: 50 mls/hr Documented by: Dopamine HCl/Dextrose (Intropin Drip 800 Mg/D5w 250 Ml) 800 mg in 250 mls @ 3.608 mls/hr IV TITR ALICIA; Protocol Last Titration: 04/22/19 06:51 Dose: 10 mcg/kg/min, 18.038 mls/hr Documented by: Ceftriaxone Sodium (Rocephin/Ns 1 Gm/50 Ml) 1 gm in 50 mls @ 100 mls/hr IV Q12HR ALICIA; Protocol Ondansetron HCl (Zofran) 4 mg IV Q4H PRN PRN Reason: Nausea And Vomiting Sodium Chloride (Sodium Chloride Flush Syringe 10 Ml) 10 ml IV BID ALICIA Sodium Chloride (Sodium Chloride Flush Syringe 10 Ml) 10 ml IV PRN PRN PRN Reason: LINE FLUSH Review of Systems Constitutional: poor appetite, no weight loss, no weight gain, no fever, no chills, no sweats Ears, nose, mouth and throat: no ear pain, no nose pain, no sinus pressure, no sinus pain Cardiovascular: no chest pain, no orthopnea, no palpitations, no rapid/irregular heart beat, no edema, no syncope, no lightheadedness, no shortness of breath, no dyspnea on exertion Respiratory: no cough, no shortness of breath, no dyspnea on exertion, no congestion, no wheezing, no pain on inspiration Gastrointestinal: no abdominal pain, no nausea, no vomiting, no diarrhea, no constipation, no change in bowel habits Genitourinary Male: no dysuria, no hematuria, no flank pain, no discharge, no urinary frequency, no urinary hesitancy Musculoskeletal: no neck stiffness, no neck pain, no shooting arm pain, no arm numbness/tingling, no low back pain, no shooting leg pain Integumentary: no rash, no pruritis, no redness, no sores, no wounds Neurological: no head injury, no paralysis, no weakness, no parathesias, no numbness, no tingling, no seizures, no syncope Psychiatric: no anxiety Endocrine: no cold intolerance, no heat intolerance Hematologic/Lymphatic: no easy bruising, no easy bleeding Allergic/Immunologic: no urticaria, no wheezing Physical Examination Vital Signs Temp Pulse Resp BP Pulse Ox 98.3 F 80 14 100/37 97 04/21/19 19:08 04/21/19 19:08 04/21/19 19:08 04/21/19 19:08 04/21/19 19:08 General appearance: no acute distress HEENT: Positive: PERRL, Normocephaly, Mucus Membranes Moist Neck: Positive: neck supple, trachea midline Cardiac: Positive: Reg Rate and Rhythm, S1/S2 Lungs: Positive: Decreased Breath Sounds Neuro: Positive: Grossly Intact Abdomen: Positive: Soft. Negative: Tender Male genitourinary: Positive: normal Skin: Negative: Rash Musculoskeletal: No Pain Extremities: Absent: edema Results 04/22/19 04:05 04/22/19 04:05 Cardiac Enzymes 04/21/19 04/21/19 04/21/19 Range/Units 19:29 19:29 22:25 AST 45 H (5-40) units/L CK-MB (CK-2) 10.4 H 11.2 H (0.0-4.0) ng/mL 04/22/19 Range/Units 04:05 AST (5-40) units/L CK-MB (CK-2) 11.9 H (0.0-4.0) ng/mL Coagulation 04/21/19 Range/Units 19:29 PT 15.1 H (12.2-14.9) Sec. INR 1.22 H (0.87-1.13) APTT 25.3 (24.2-36.6) Sec. Lipids 04/21/19 Range/Units 19:29 Triglycerides 64 (2-149) mg/dL Cholesterol 105 (50-199) mg/dL HDL Cholesterol 47 (40-59) mg/dL Cholesterol/HDL Ratio 2.23 % CBC 04/21/19 04/22/19 Range/Units 19:29 04:05 WBC 14.6 H 4.6 (4.5-11.0) K/mm3 RBC 3.26 L 3.72 (3.65-5.03) M/mm3 Hgb 9.6 L 11.0 L (11.8-15.2) gm/dl Hct 28.1 L 32.0 L (35.5-45.6) % Plt Count 308 291 (140-440) K/mm3 Lymph # 0.9 L (1.2-5.4) K/mm3 [place] # 0.9 H (0.0-0.8) K/mm3 Eos # 0.0 (0.0-0.4) K/mm3 Baso # 0.0 (0.0-0.1) K/mm3 Comprehensive Metabolic Panel 04/21/19 04/22/19 Range/Units 19:29 04:05 Sodium 129 L 132 L (137-145) mmol/L Potassium 3.4 L 3.4 L (3.6-5.0) mmol/L Chloride 94.2 L 99.1 (98-107) mmol/L Carbon Dioxide 18 L 18 L (22-30) mmol/L BUN 80 H 74 H (9-20) mg/dL Creatinine 6.0 H 4.8 H (0.8-1.5) mg/dL Glucose 65 L 48 L (75-100) mg/dL Calcium 8.7 9.0 (8.4-10.2) mg/dL AST 45 H (5-40) units/L ALT 20 (7-56) units/L Alkaline Phosphatase 77 (35-129) units/L Total Protein 7.4 (6.3-8.2) g/dL Albumin 3.0 L (3.9-5) g/dL - Imaging and Cardiology Echo: report reviewed ( 05/2017 showed EF 25-30%, LA mod dilated, RA mildly dilat ed, trace MR, mild to mod TR, mild LVH. ) Cardiac cath: report reviewed (01/2015 showed nonobstructive CAD, 30-40% prox RCA, 25% mid RCA, 25% distal left circ, EF 40-45%. ) EKG: report reviewed, image reviewed EKG interpretations - Telemetry EKG Rhythm: Sinus Rhythm - EKG Sinus rhythms and dysrhythmias: sinus rhythm AV and intraventricular conduction: intraventricular conducti Assessment and Plan Troponin elevation appears c/w NSTEMI type II at this time. Pt denies any cardiac complaints, ECG with NAF. Cont to trend [place] and repeat ECG in AM. Obtain echo. Cont current cardiac management. The patient has been seen in conjunction with Dr. Taylor who agrees with the assessment and plan of care. - Patient Problems (1) Acute on chronic renal failure Current Visit: Yes Status: Acute (2) UTI (urinary tract infection) Current Visit: Yes Status: Acute (3) Hypotension Current Visit: Yes Status: Acute (4) NSTEMI (non-ST elevated myocardial infarction) Current Visit: Yes Status: Acute Plan to address problem: type II (5) CAD (coronary artery disease) Current Visit: Yes Status: Chronic (6) Stented coronary artery Current Visit: Yes Status: Chronic (7) Ischemic cardiomyopathy Current Visit: Yes Status: Chronic (8) Automatic implantable cardioverter-defibrillator in situ Current Visit: Yes Status: Chronic (9) History of ventricular tachycardia Current Visit: Yes Status: Chronic (10) Hyperlipidemia Current Visit: Yes Status: Chronic
[2019-04-22] MEDS ORDERED: NACL 0.9% 500 ML 500 ML IV ONE (11:10)
[2019-04-22] MEDS: LOVENOX SUB-Q SCH (11:24)
[2019-04-22] MEDS: ROCEPHIN/NS 1 GM/50 ML 1 GM/50 ML BAG IV SCH ×2 (11:31→21:45)
--- NOTE | 2019-04-22 12:39 | Progress Note ---
Assessment and Plan 1. Acute kidney injury: Suspect vasomotor SOFYA in the setting of hypotension. Suspect background CKD. Urine studies and Renal US pending. Continue IV fluids. Renal function is improving. Monitor renal function. Renal prognosis is guarded. Avoid nephrotoxic agents. Meds dosage based on GFR. 2. FEN: Hypokalemia, replete K. Anion gap MA, 2/2 SOFYA. Continue IV fluids. Monitor lytes. 3. Hypotension / shock: Off pressors. 4. Suspected sepsis: UTI. 5. Hypoglycemia. 6. H/o CHF. 7. Anemia: Monitor H/H. Subjective Date of service: 04/22/19 Interval history: Patient was seen and examined at the bedside. Objective - Vital Signs Vital signs: Vital Signs - 12hr 04/22/19 04/22/19 04/22/19 00:45 01:00 02:00 Temperature Pulse Rate 69 65 Pulse Rate [ From Monitor] Pulse Rate [ 72 None] Respiratory 16 18 16 Rate Blood Pressure 96/50 Blood Pressure 70/35 66/32 [Left] O2 Sat by Pulse 97 98 92 Oximetry 04/22/19 04/22/19 04/22/19 02:15 02:30 02:45 Temperature Pulse Rate Pulse Rate [ From Monitor] Pulse Rate [ 75 85 75 None] Respiratory 19 14 15 Rate Blood Pressure 85/52 110/49 Blood Pressure [Left] O2 Sat by Pulse 92 93 92 Oximetry 04/22/19 04/22/19 04/22/19 03:00 03:15 03:16 Temperature Pulse Rate 68 Pulse Rate [ From Monitor] Pulse Rate [ 70 72 None] Respiratory 15 15 Rate Blood Pressure 106/38 102/40 Blood Pressure [Left] O2 Sat by Pulse 92 90 Oximetry 04/22/19 04/22/19 04/22/19 03:30 03:45 04:00 Temperature 97.7 F Pulse Rate Pulse Rate [ 87 From Monitor] Pulse Rate [ 78 87 None] Respiratory 20 15 18 Rate Blood Pressure 93/52 Blood Pressure [Left] O2 Sat by Pulse 93 96 97 Oximetry 04/22/19 04/22/19 04/22/19 04:28 04:30 04:39 Temperature 98.2 F Pulse Rate 78 Pulse Rate [ From Monitor] Pulse Rate [ 81 None] Respiratory 15 16 Rate Blood Pressure 95/59 Blood Pressure [Left] O2 Sat by Pulse 95 91 Oximetry 04/22/19 04/22/19 04/22/19 04:45 04:46 05:00 Temperature Pulse Rate 90 92 H Pulse Rate [ From Monitor] Pulse Rate [ 89 None] Respiratory 18 20 17 Rate Blood Pressure 102/49 71/47 71/47 Blood Pressure [Left] O2 Sat by Pulse 93 95 98 Oximetry 04/22/19 04/22/19 04/22/19 05:16 05:30 05:46 Temperature Pulse Rate 84 93 H 93 H Pulse Rate [ From Monitor] Pulse Rate [ None] Respiratory 18 9 L 24 Rate Blood Pressure 65/39 87/42 87/42 Blood Pressure [Left] O2 Sat by Pulse 84 94 93 Oximetry 04/22/19 04/22/19 04/22/19 06:00 06:15 06:30 Temperature Pulse Rate 85 78 76 Pulse Rate [ From Monitor] Pulse Rate [ None] Respiratory 19 18 19 Rate Blood Pressure 97/45 101/40 96/42 Blood Pressure [Left] O2 Sat by Pulse 96 94 92 Oximetry 04/22/19 04/22/19 04/22/19 06:45 07:00 07:15 Temperature Pulse Rate 75 75 76 Pulse Rate [ From Monitor] Pulse Rate [ None] Respiratory 19 19 18 Rate Blood Pressure 88/39 91/42 90/41 Blood Pressure [Left] O2 Sat by Pulse 91 91 92 Oximetry 04/22/19 04/22/19 04/22/19 07:30 07:44 07:45 Temperature Pulse Rate 78 77 Pulse Rate [ 88 From Monitor] Pulse Rate [ None] Respiratory 20 17 Rate Blood Pressure 95/42 91/41 Blood Pressure [Left] O2 Sat by Pulse 95 95 91 Oximetry 04/22/19 04/22/19 04/22/19 08:00 08:16 08:30 Temperature 97.5 F L Pulse Rate 84 92 H 97 H Pulse Rate [ From Monitor] Pulse Rate [ None] Respiratory 15 16 20 Rate Blood Pressure 98/44 97/53 97/54 Blood Pressure [Left] O2 Sat by Pulse 93 95 95 Oximetry 04/22/19 04/22/19 04/22/19 08:45 08:57 09:00 Temperature Pulse Rate 89 89 Pulse Rate [ From Monitor] Pulse Rate [ None] Respiratory 18 19 Rate Blood Pressure 100/47 94/45 Blood Pressure [Left] O2 Sat by Pulse 84 97 97 Oximetry 04/22/19 04/22/19 04/22/19 09:15 09:30 09:45 Temperature Pulse Rate 90 92 H 87 Pulse Rate [ From Monitor] Pulse Rate [ None] Respiratory 18 15 18 Rate Blood Pressure 93/45 98/46 100/46 Blood Pressure [Left] O2 Sat by Pulse 97 96 95 Oximetry 04/22/19 04/22/19 04/22/19 10:00 10:15 10:30 Temperature Pulse Rate 85 92 H Pulse Rate [ From Monitor] Pulse Rate [ None] Respiratory 19 19 Rate Blood Pressure 97/37 89/41 97/37 Blood Pressure [Left] O2 Sat by Pulse 95 97 96 Oximetry 04/22/19 04/22/19 04/22/19 10:45 11:00 11:15 Temperature Pulse Rate 86 153 H Pulse Rate [ From Monitor] Pulse Rate [ None] Respiratory 16 Rate Blood Pressure 87/38 87/38 82/42 Blood Pressure [Left] O2 Sat by Pulse 95 93 96 Oximetry 04/22/19 04/22/19 04/22/19 11:30 11:45 12:00 Temperature 97.9 F Pulse Rate 90 87 85 Pulse Rate [ From Monitor] Pulse Rate [ None] Respiratory 19 17 15 Rate Blood Pressure 84/45 88/43 92/44 Blood Pressure [Left] O2 Sat by Pulse 99 98 99 Oximetry 04/22/19 12:15 Temperature Pulse Rate 86 Pulse Rate [ From Monitor] Pulse Rate [ None] Respiratory 16 Rate Blood Pressure 95/47 Blood Pressure [Left] O2 Sat by Pulse 95 Oximetry - General Appearance General appearance: well-developed, well-nourished, appears stated age, other (no distress) EENT: ATNC, PERRL, hearing intact, vision intact Neck: supple Respiratory: Present: Clear to Ascultation Cardiology: regular, S1S2, no murmurs Gastrointestinal: normoactive bowel sounds, no tenderness, no distended, other (condom catheter) Integumentary: no rash Neurologic: no focal deficit, no asterixis, alert and oriented x3 Musculoskeletal: other (Trace LE edema noted) Psychiatric: cooperative - Lab 04/22/19 04:05 04/22/19 04:05 Most recent lab results Calcium 9.0 mg/dL (8.4-10.2) 04/22/19 04:05 Phosphorus 3.50 mg/dL (2.5-4.5) 04/22/19 04:05 Magnesium 2.30 mg/dL (1.7-2.3) 04/22/19 04:05 Medications & Allergies - Medications Allergies/Adverse Reactions: Allergies No Known Allergies Allergy (Unverified 01/10/15 13:46) Home Medications: Home Medications Medication Instructions Recorded Confirmed Last Taken Type Albuterol Sulfate [Ventolin HFA] 1 puff IH QID PRN 05/11/18 05/11/18 Unknown History Glimepiride [Amaryl] 2 mg PO QDAY 05/11/18 05/11/18 Unknown History Ipratropium/Albuterol Sulfate 1 ampul IH Q6HR 05/11/18 05/11/18 Unknown History [DUONEB *Not for PRN Use*] Amiodarone [Cordarone 200 MG TAB] 200 mg PO BID #60 tablet 05/21/18 Unknown Rx Aspirin [Aspirin BABY CHEW TAB] 81 mg PO QDAY #30 tab.chew 05/21/18 Unknown Rx Carvedilol [Coreg] 6.25 mg PO BID #60 tablet 05/21/18 Unknown Rx Cilostazol [Pletal] 50 mg PO BID #60 tablet 05/21/18 Unknown Rx Furosemide [Lasix TAB] 40 mg PO DAILY #30 tablet 05/21/18 Unknown Rx Lisinopril [Zestril TAB] 5 mg PO QDAY #30 tablet 05/21/18 Unknown Rx Potassium Chloride [K-Dur] 20 meq PO QDAY #30 tablet 05/21/18 Unknown Rx Pravastatin [Pravachol] 40 mg PO QHS #30 tablet 05/21/18 Unknown Rx amLODIPine [Norvasc] 10 mg PO DAILY #30 tablet 05/21/18 Unknown Rx Active Medications: Generic Name Dose Route Start Last Admin Trade Name Freq PRN Reason Stop Dose Admin Acetaminophen 650 mg 04/21/19 22:11 Tylenol PO Q4H PRN Pain MILD(1-3)/Fever >100.5/BLAKE Aspirin 81 mg 04/23/19 10:00 Baby Aspirin PO QDAY ALICIA Dextrose 25 gm 04/22/19 08:01 D50w (25gm) Vial IV PRN PRN Hypoglycemia Enoxaparin Sodium 30 mg 04/22/19 10:00 04/22/19 11:24 Lovenox SUB-Q 30 mg QDAY ALICIA Administration Dextrose/Sodium Chloride 1,000 mls @ 75 mls/hr 04/21/19 23:45 04/22/19 01:10 D5ns IV 50 mls/hr DIRECT ALICIA Administration Dopamine HCl/Dextrose 800 mg in 250 mls @ 3.608 mls/hr 04/22/19 01:15 04/22/19 06:51 Intropin Drip 800 Mg/D5w 250 Ml IV 10 mcg/kg/min TITR ALICIA 18.038 mls/hr Titration Protocol 2 MCG/KG/MIN Ceftriaxone Sodium 1 gm in 50 mls @ 100 mls/hr 04/22/19 10:00 04/22/19 11:31 Rocephin/Ns 1 Gm/50 Ml IV 100 mls/hr Q12HR ALICIA Administration Protocol Ondansetron HCl 4 mg 04/21/19 22:11 Zofran IV Q4H PRN Nausea And Vomiting Pravastatin Sodium 40 mg 04/22/19 22:00 Pravachol PO QHS ALICIA Sodium Chloride 10 ml 04/22/19 10:00 04/22/19 10:00 Sodium Chloride Flush Syringe 10 Ml IV 10 ml BID AILCIA Administration Sodium Chloride 10 ml 04/21/19 22:11 Sodium Chloride Flush Syringe 10 Ml IV PRN PRN LINE FLUSH
[2019-04-22] MEDS ORDERED: POTASSIUM CHLORIDE PO ONE (13:16)
--- NOTE | 2019-04-22 13:28 | Ultrasound Report ---
RENAL ULTRASOUND HISTORY: Acute renal failure. COMPARISON: None. TECHNIQUE: Multiple real-time ultrasonographic grayscale images were obtained of the kidneys and urin jose bladder. FINDINGS: Right kidney: Mild increased echogenicity of the kidney and a benign upper pole cyst measuring 1.8 x 1.6 x 1.3 cm. No hydronephrosis. Kidney measures 12.2 x 5.1 x 5.9 cm. Left kidney: Mild increased echogenicity of the kidney. A left upper pole benign cyst measures 4.2 x 3.2 x 4.1 cm and a lower pole benign cyst measures 1.2 x 1.3 x 1.1 cm. No hydronephrosis. Kidney lubna ures 12.6 x 6.7 x 5.2 cm. Urinary bladder: A fluid debris level in the urinary bladder. Additional findings: None. IMPRESSION: Bilateral medical renal disease with no hydronephrosis and normal size kidneys. Bilateral benign cyst s. Echogenic cellular debris versus blood in the urinary bladder. Signer Name: Gage Diaz MD Signed: 04/22/2019 1:24 PM Workstation Name: [id number]
--- NOTE | 2019-04-22 16:21 | Event Note ---
Date: 04/22/19 Urinalysis shows UTI. Started on Rocephin. Get Lactic acid level stat.
[2019-04-22] MEDS: D5NS 1,000 ML IV SCH (17:50)
[2019-04-22] MEDS: PRAVACHOL PO SCH (21:55)
[2019-04-23 06:07] LABS: Hematocrit 28.3 % (35.5-45.6); Hemoglobin 9.6 gm/dl (11.8-15.2); Mean Corpuscular HGB Conc 34 % (32-34); Mean Corpuscular Volume 85 fl (84-94); Platelet Count 277 K/mm3 (140-440); Red Blood Count 3.32 M/mm3 (3.65-5.03); Red Cell Distribution Width 15.8 % (13.2-15.2)
[2019-04-23 06:29] LABS: Calcium 8.3 mg/dL (8.4-10.2)
[2019-04-23] MEDS: D5NS 1,000 ML IV SCH ×2 (06:30→15:13)
--- NOTE | 2019-04-23 09:26 | Progress Note ---
Assessment and Plan Assessment and plan: Assessment Acute kidney injury Hypotension, etiology unclear at this point Abnormal cardiac enzymes hypoglycemia secondary to poor appetite and Glimepiride Rhabdomyolysis CHF, stable Coronary Artery disease Hyperlipidemia Peripheral vascular disease UTI to r/o sepsis Plan Admitted to ICU Started gentle IV fluid, Nephrology following Cardiac enzymes, echo, consulted cardiology monitor blood sugar, encourage oral intake, placed on Renal diet for now Hold all antihypertensives and diabetic medications Ceftriaxone for UTI DVT prophylaxis with Lovenox. History Interval history: Generalized weakness improved Low blood glucose Still on Dopamine, dose decreased Hospitalist Physical - Physical exam Narrative exam: Gen: Not in acute distress, lying in bed,obese HEENT: Normocephalic, atraumatic Neck: supple, no JVD Heart: S1 and S2 reg, no murmurs, rubs or gallop Lungs: Clear, no crackles, no wheeze Abd: soft, non tender, non distended, normal BS Ext: No edema, no clubbing, no cyanosis, Neuro: Awake,alert, moves all ext, non focal - Constitutional Vitals: Temp Pulse Resp BP Pulse Ox 97.7 F 85 16 111/54 99 04/23/19 03:22 04/23/19 09:15 04/23/19 09:15 04/23/19 09:15 04/23/19 09:15 General appearance: Present: no acute distress, obese Results - Labs CBC & Chem 7: 04/23/19 05:35 04/23/19 05:35 Labs: Laboratory Last Values WBC 22.9 K/mm3 (4.5-11.0) H 04/23/19 05:35 RBC 3.32 M/mm3 (3.65-5.03) L 04/23/19 05:35 Hgb 9.6 gm/dl (11.8-15.2) L 04/23/19 05:35 Hct 28.3 % (35.5-45.6) L 04/23/19 05:35 MCV 85 fl (84-94) 04/23/19 05:35 MCH 29 pg (28-32) 04/23/19 05:35 MCHC 34 % (32-34) 04/23/19 05:35 RDW 15.8 % (13.2-15.2) H 04/23/19 05:35 Plt Count 277 K/mm3 (140-440) 04/23/19 05:35 Lymph % (Auto) 6.1 % (13.4-35.0) L 04/21/19 19:29 Tyler % (Auto) 6.2 % (0.0-7.3) 04/21/19 19: Eos % (Auto) 0.2 % (0.0-4.3) 04/21/19 19: Baso % (Auto) 0.2 % (0.0-1.8) 04/21/19 19: Lymph # 0.9 K/mm3 (1.2-5.4) L 04/21/19 19: Tyler # 0.9 K/mm3 (0.0-0.8) H 04/21/19 19: Eos # 0.0 K/mm3 (0.0-0.4) 04/21/19 19: Baso # 0.0 K/mm3 (0.0-0.1) 04/21/19 19: Add Manual Diff Complete 04/22/19 04:05 Total Counted 100 04/22/19 04:05 Seg Neutrophils % Sand Molder 04/22/19 04:05 Seg Neuts % (Manual) 91.0 % (40.0-70.0) H 04/22/19 04:05 1.0 % 04/22/19 04:05 5.0 % (13.4-35.0) L 04/22/19 04:05 Reactive Lymphs % (Man) 0 % 04/22/19 04:05 0 % (0.0-7.3) 04/22/19 04:05 3.0 % (0.0-4.3) 04/22/19 04:05 0 % (0.0-1.8) 04/22/19 04:05 0 % 04/22/19 04:05 0 % 04/22/19 04:05 0 % 04/22/19 04:05 0 % 04/22/19 04:05 Nucleated RBC % Not Reportable 04/22/19 04:05 Seg Neutrophils # 12.7 K/mm3 (1.8-7.7) H 04/21/19 19:29 Seg Neutrophils # Man 4.2 K/mm3 (1.8-7.7) 04/22/19 04:05 Band Neutrophils # 0.0 K/mm3 04/22/19 04:05 0.2 K/mm3 (1.2-5.4) L 04/22/19 04:05 Abs React Lymphs (Man) 0.0 K/mm3 04/22/19 04:05 0.0 K/mm3 (0.0-0.8) 04/22/19 04:05 0.1 K/mm3 (0.0-0.4) 04/22/19 04:05 0.0 K/mm3 (0.0-0.1) 04/22/19 04:05 0.0 K/mm3 04/22/19 04:05 0.0 K/mm3 04/22/19 04:05 0.0 K/mm3 04/22/19 04:05 Blast Cells # 0.0 K/mm3 04/22/19 04:05 WBC Morphology Not Reportable 04/22/19 04:05 Hypersegmented Neuts Not Reportable 04/22/19 04:05 Hyposegmented Neuts Not Reportable 04/22/19 04:05 Hypogranular Neuts Not Reportable 04/22/19 04:05 Not Reportable 04/22/19 04:05 Not Reportable 04/22/19 04:05 Not Reportable 04/22/19 04:05 Not Reportable 04/22/19 04:05 Not Reportable 04/22/19 04:05 Not Reportable 04/22/19 04:05 Consistent w auto 04/22/19 04:05 Not Reportable 04/22/19 04:05 Plt Clumps, EDTA Not Reportable 04/22/19 04:05 Not Reportable 04/22/19 04:05 Not Reportable 04/22/19 04:05 Not Reportable 04/22/19 04:05 Plt Morphology Comment Not Reportable 04/22/19 04:05 RBC Morphology Not Reportable 04/22/19 04:05 Dimorphic RBCs Not Reportable 04/22/19 04:05 Few 04/22/19 04:05 1+ 04/22/19 04:05 Not Reportable 04/22/19 04:05 1+ 04/22/19 04:05 Few 04/22/19 04:05 Not Reportable 04/22/19 04:05 Not Reportable 04/22/19 04:05 Not Reportable 04/22/19 04:05 Not Reportable 04/22/19 04:05 Not Reportable 04/22/19 04:05 Not Reportable 04/22/19 04:05 Few 04/22/19 04:05 Not Reportable 04/22/19 04:05 Not Reportable 04/22/19 04:05 Not Reportable 04/22/19 04:05 Not Reportable 04/22/19 04:05 Not Reportable 04/22/19 04:05 Not Reportable 04/22/19 04:05 Not Reportable 04/22/19 04:05 Acanthocytes (Spur) Few 04/22/19 04:05 Rouleaux Not Reportable 04/22/19 04:05 Not Reportable 04/22/19 04:05 Not Reportable 04/22/19 04:05 Not Reportable 04/22/19 04:05 Not Reportable 04/22/19 04:05 Hem Pathologist Commnt No 04/22/19 04:05 PT 15.1 Sec. (12.2-14.9) H 04/21/19 19:29 INR 1.22 (0.87-1.13) H 04/21/19 19:29 APTT 25.3 Sec. (24.2-36.6) 04/21/19 19:29 Sodium 142 mmol/L (137-145) D 04/23/19 05:35 Potassium 3.2 mmol/L (3.6-5.0) L 04/23/19 05:35 Chloride 111.2 mmol/L (98-107) H 04/23/19 05:35 Carbon Dioxide 22 mmol/L (22-30) 04/23/19 05:35 12 mmol/L 04/23/19 05:35 BUN 48 mg/dL (9-20) H 04/23/19 05:35 2.0 mg/dL (0.8-1.5) H D 04/23/19 05:35 Estimated GFR 39 ml/min 04/23/19 05:35 24 % 04/23/19 05:35 Glucose 102 mg/dL (75-100) H 04/23/19 05:35 POC Glucose 103 (70-105) 04/23/19 08:36 5.6 % (4-6) 04/23/19 05:35 Lactic Acid 1.20 mmol/L (0.7-2.0) 04/23/19 05:35 Calcium 8.3 mg/dL (8.4-10.2) L 04/23/19 05:35 Phosphorus 2.20 mg/dL (2.5-4.5) L D 04/23/19 05:35 Magnesium 2.30 mg/dL (1.7-2.3) 04/22/19 04:05 0.50 mg/dL (0.1-1.2) 04/21/19 19:29 AST 45 units/L (5-40) H 04/21/19 19:29 ALT 20 units/L (7-56) 04/21/19 19:29 77 units/L (35-129) 04/21/19 19:29 456 units/L (55-170) H 04/23/19 05:35 CK-MB (CK-2) 11.9 ng/mL (0.0-4.0) H 04/22/19 04:05 CK-MB (CK-2) Rel Index 0.8 (0-4) 04/22/19 04:05 0.042 ng/mL (0.00-0.029) H D 04/23/19 05:35 7.4 g/dL (6.3-8.2) 04/21/19 19:29 3.0 g/dL (3.9-5) L 04/21/19 19:29 0.7 % 04/21/19 19:29 Triglycerides 64 mg/dL (2-149) 04/21/19 19:29 Cholesterol 105 mg/dL (50-199) 04/21/19 19:29 45 mg/dL (50-130) L 04/21/19 19:29 47 mg/dL (40-59) 04/21/19 19:29 2.23 % 04/21/19 19:29 TSH 1.410 mlU/mL (0.270-4.200) 04/21/19 19:29 Free T4 1.71 ng/dL (0.76-1.46) H 04/21/19 19:29 PTH Intact 60.08 pg/mL (15-65) 04/22/19 04:05 Yellow (Yellow) 04/22/19 08:40 Cloudy (Clear) 04/22/19 08:40 5.0 (5.0-7.0) 04/22/19 08:40 Ur Specific [place] 1.010 (1.003-1.030) 04/22/19 08:40 <15 mg/dl mg/dL (Negative) 04/22/19 08:40 Neg mg/dL (Negative) 04/22/19 08:40 Neg mg/dL (Negative) 04/22/19 08:40 Mod (Negative) 04/22/19 08:40 Neg (Negative) 04/22/19 08:40 Neg (Negative) 04/22/19 08:40 < 2.0 mg/dL (<2.0) 04/22/19 08:40 Ur Leukocyte Esterase Lg (Negative) 04/22/19 08:40 > 182.0 /HPF (0.0-6.0) H 04/22/19 08:40 31.0 /HPF (0.0-6.0) 04/22/19 08:40 U Epithel Cells (Auto) < 1.0 /HPF (0-13.0) 04/22/19 08:40 2+ /HPF (Negative) 04/22/19 08:40 1+ /HPF 04/22/19 08:40 Few /HPF 04/22/19 08:40 2+ /HPF 04/22/19 08:40 Active Medications - Current Medications Current Medications: Generic Name Dose Route Start Last Admin Trade Name Freq PRN Reason Stop Dose Admin Acetaminophen 650 mg 04/21/19 22:11 Tylenol PO Q4H PRN Pain MILD(1-3)/Fever >100.5/BLAKE Aspirin 81 mg 04/23/19 10:00 Baby Aspirin PO QDAY ALICIA Dextrose 25 gm 04/22/19 08:01 D50w (25gm) Vial IV PRN PRN Hypoglycemia Enoxaparin Sodium 30 mg 04/22/19 10:00 04/22/19 11:24 Lovenox SUB-Q 30 mg QDAY ALICIA Administration Dopamine HCl/Dextrose 800 mg in 250 mls @ 3.608 mls/hr 04/22/19 01:15 04/23/19 05:10 Intropin Drip 800 Mg/D5w 250 Ml IV 2 mcg/kg/min TITR LAICIA 3.608 mls/hr Titration Protocol 2 MCG/KG/MIN Ceftriaxone Sodium 1 gm in 50 mls @ 100 mls/hr 04/22/19 10:00 04/22/19 21:45 Rocephin/Ns 1 Gm/50 Ml IV 100 mls/hr Q12HR ALICIA Administration Protocol Dextrose/Sodium Chloride 1,000 mls @ 100 mls/hr 04/22/19 12:00 04/23/19 06:30 D5ns IV 100 mls/hr DIRECT ALICIA Administration Potassium Phosphate 30 mmol/ 510 mls @ 85 mls/hr 04/23/19 10:00 Sodium Chloride IV 04/23/19 15:59 ONCE ONE Ondansetron HCl 4 mg 04/21/19 22:11 Zofran IV Q4H PRN Nausea And Vomiting Pravastatin Sodium 40 mg 04/22/19 22:00 04/22/19 21:55 Pravachol PO 40 mg QHS ALICIA Administration Sodium Chloride 10 ml 04/22/19 10:00 04/22/19 22:24 Sodium Chloride Flush Syringe 10 Ml IV 10 ml BID ALICIA Administration Sodium Chloride 10 ml 04/21/19 22:11 Sodium Chloride Flush Syringe 10 Ml IV PRN PRN LINE FLUSH Nutrition/Malnutrition Assess - Dietary Evaluation Nutrition/Malnutrition Findings: Nutrition Notes Start: 04/22/19 16:22 Freq: Status: Active Protocol: Document 04/22/19 16:22 RM (Rec: 04/22/19 16:32 RM [id number]) Nutrition Notes Need for Assessment generated from: car hop Initial or Follow up Assessment Current Diagnosis Coronary Artery Disease, Diabetes,Hypertension,Heart Failure,Hyperlipidemia Other Pertinent Diagnosis Sacral PU, UTI, R foot diabetic ulcer Current Diet Renal Labs/Tests Reviewed Pertinent Medications Reviewed Height 5 ft 7 in Weight 93.7 kg [place] Body Weight (kg) 67.27 BMI 32.3 Subjective/Other Information Screened for skin risk. Robert 16 points. Pt stated that his appetite is good and that he ate all of his breakfast. Burn Absent Trauma Absent #1 Nutrition Diagnosis Increased nutrient needs ( specify in comment below) Comments: arginine, glutamine Etiology wound healing As Evidenced by Signs and Symptoms sacral PU, R foot diabetic ulcer Is patient on ventilator? No Is Patient Ambulatory and/or Out of Bed No REE-([facility]-confined to bed) 1915.596 Kcal/Kg value to use for calculation 17 Approximate Energy Requirements Using 1593 kcal/Kg Calculation Used for Recommendations Kcal/kg Additional Notes Protein Needs:96-120g (1.2-1. 5g/kg 80kg adjBW) Fluid Needs: 1 ml/kcal Nutrition Intervention Change Diet Order: Continue current Add Supplement/Snack (indicate name/kcal Angel BID /protein ) Provides kCal: 190 Provides Protein (gm) 5 Goal #1 Angel intake Anticipated Discharge Needs: Renal diet Follow-Up By: 04/25/19 Additional Comments Follow for PO intakes, Angel intake
[2019-04-23] MEDS: ROCEPHIN/NS 1 GM/50 ML 1 GM/50 ML BAG IV SCH ×2 (09:52→21:38)
[2019-04-23] MEDS: BABY ASPIRIN PO SCH (09:53)
[2019-04-23] MEDS: LOVENOX SUB-Q SCH (09:53)
[2019-04-23] MEDS ORDERED: KPHOS 30 MMOL in NACL 0.9% 500 ML 500 ML IV ONE (10:00)
[2019-04-23] MEDS: SODIUM CHLORIDE FLUSH SYRINGE 10 ML IV SCH ×2 (10:06→21:39)
--- NOTE | 2019-04-23 10:39 | Progress Note ---
Assessment and Plan Patient currently stable and free of CP. Troponins trending downward. Continue current cardiac management and wean off dopamine as tolerated. The patient has been seen in conjunction with Dr. Nuñez, who agrees with assessment and plan. - Patient Problems (1) Acute on chronic renal failure Current Visit: Yes Status: Acute (2) Anemia Current Visit: Yes Status: Acute (3) Hyponatremia Current Visit: Yes Status: Resolved (4) Hypotension Current Visit: Yes Status: Acute (5) NSTEMI (non-ST elevated myocardial infarction) Current Visit: Yes Status: Acute (6) UTI (urinary tract infection) Current Visit: Yes Status: Acute (7) Automatic implantable cardioverter-defibrillator in situ Current Visit: Yes Status: Chronic (8) CAD (coronary artery disease) Current Visit: Yes Status: Chronic (9) History of ventricular tachycardia Current Visit: Yes Status: Chronic (10) Ischemic cardiomyopathy Current Visit: Yes Status: Chronic (11) Stented coronary artery Current Visit: Yes Status: Chronic Subjective Date of service: 04/23/19 Interval history: Patient sitting up in bed, eating breakfast. No complaints. Remains on dopamine drip. SR with rates in the 80s on telemetry; brief 4-beat run of NSVT noted yesterday. Echo on 04/21/19 found EF of 30 to 35 percent, mild concentric LVH, mildly reduced RV global systolic function and no significant valvular abnormalities. LHC 01/2015 showed nonobstructive CAD, 30-40% prox RCA, 25% mid RCA, 25% distal left circ, EF 40-45%. Objective Last Vital Signs Temp 97.7 F 04/23/19 03:22 Pulse 85 04/23/19 09:15 Resp 16 04/23/19 09:15 BP 111/54 04/23/19 09:15 Pulse Ox 99 04/23/19 09:15 - Physical Examination General: No Apparent Distress HEENT: Positive: PERRL, Normocephaly, Mucus Membranes Moist Neck: Positive: neck supple, trachea midline Cardiac: Positive: Reg Rate and Rhythm Lungs: Positive: Normal Exam Neuro: Positive: Grossly Intact Abdomen: Positive: Soft. Negative: Tender /Rectal: Other (deferred) Skin: Positive: Clear. Negative: Rash Musculoskeletal: No Pain Extremities: Present: normal. Absent: edema - Labs and Meds CBC 04/23/19 Range/Units 05:35 WBC 22.9 H (4.5-11.0) K/mm3 RBC 3.32 L (3.65-5.03) M/mm3 Hgb 9.6 L (11.8-15.2) gm/dl Hct 28.3 L (35.5-45.6) % Plt Count 277 (140-440) K/mm3 Comprehensive Metabolic Panel 04/23/19 Range/Units 05:35 Sodium 142 D (137-145) mmol/L Potassium 3.2 L (3.6-5.0) mmol/L Chloride 111.2 H (98-107) mmol/L Carbon Dioxide 22 (22-30) mmol/L BUN 48 H (9-20) mg/dL Creatinine 2.0 H D (0.8-1.5) mg/dL Glucose 102 H (75-100) mg/dL Calcium 8.3 L (8.4-10.2) mg/dL - Imaging and Cardiology EKG: report reviewed, image reviewed Echo: report reviewed ( 05/2017 showed EF 25-30%, LA mod dilated, RA mildly dilated, trace MR, mild to mod TR, mild LVH. ) Cardiac cath: report reviewed (01/2015 showed nonobstructive CAD, 30-40% prox RCA, 25% mid RCA, 25% distal left circ, EF 40-45%. ) - EKG Sinus rhythms and dysrhythmias: sinus rhythm AV and intraventricular conduction: intraventricular conducti
[2019-04-23] MEDS ORDERED: XYLOCAINE 2% UROJET ONE (11:00)
--- NOTE | 2019-04-23 11:17 | Progress Note ---
Assessment and Plan 1. Acute kidney injury: Vasomotor SOFYA in the setting of hypotension. Suspect background CKD. Renal US was negative for hydro. Urine studies pending. Continue IV fluids. Renal function is improving. Monitor renal function. Renal prognosis is guarded. Avoid nephrotoxic agents. Meds dosage based on GFR. 2. FEN: Hypokalemia, replete K. Anion gap MA, 2/2 SOFYA. Continue IV fluids. Monitor lytes. 3. Hypotension / shock: Off pressors. 4. Suspected sepsis: UTI. 5. Hypoglycemia. 6. H/o CHF. 7. Anemia: Monitor H/H. Subjective Date of service: 04/23/19 Interval history: Patient was seen and examined at the bedside. Objective - Vital Signs Vital signs: Vital Signs - 12hr 04/22/19 04/22/19 04/22/19 23:30 23:40 23:45 Temperature Pulse Rate 81 80 Pulse Rate [ 76 From Monitor] Pulse Rate [ 76 Left Dorsalis Pedis] Pulse Rate [ 76 Left Radial] Pulse Rate [ 76 Right Dorsalis Pedis] Respiratory 18 22 16 Rate Blood Pressure 103/49 104/46 O2 Sat by Pulse 99 95 100 Oximetry 04/22/19 04/23/19 04/23/19 23:47 00:00 00:15 Temperature Pulse Rate 84 81 78 Pulse Rate [ From Monitor] Pulse Rate [ Left Dorsalis Pedis] Pulse Rate [ Left Radial] Pulse Rate [ Right Dorsalis Pedis] Respiratory 20 17 16 Rate Blood Pressure 104/46 108/47 107/48 O2 Sat by Pulse 98 100 100 Oximetry 04/23/19 04/23/19 04/23/19 00:30 00:45 01:00 Temperature Pulse Rate 75 77 81 Pulse Rate [ From Monitor] Pulse Rate [ Left Dorsalis Pedis] Pulse Rate [ Left Radial] Pulse Rate [ Right Dorsalis Pedis] Respiratory 15 16 17 Rate Blood Pressure 105/43 108/45 118/49 O2 Sat by Pulse 99 96 100 Oximetry 04/23/19 04/23/19 04/23/19 01:15 01:30 01:45 Temperature Pulse Rate 77 78 76 Pulse Rate [ From Monitor] Pulse Rate [ Left Dorsalis Pedis] Pulse Rate [ Left Radial] Pulse Rate [ Right Dorsalis Pedis] Respiratory 17 16 16 Rate Blood Pressure 110/44 116/47 106/45 O2 Sat by Pulse 97 99 99 Oximetry 04/23/19 04/23/19 04/23/19 02:01 02:15 02:30 Temperature Pulse Rate 80 77 77 Pulse Rate [ From Monitor] Pulse Rate [ Left Dorsalis Pedis] Pulse Rate [ Left Radial] Pulse Rate [ Right Dorsalis Pedis] Respiratory 19 14 17 Rate Blood Pressure 106/45 114/48 112/51 O2 Sat by Pulse 100 100 99 Oximetry 04/23/19 04/23/19 04/23/19 02:45 03:00 03:15 Temperature Pulse Rate 74 74 73 Pulse Rate [ From Monitor] Pulse Rate [ Left Dorsalis Pedis] Pulse Rate [ Left Radial] Pulse Rate [ Right Dorsalis Pedis] Respiratory 15 14 14 Rate Blood Pressure 112/46 115/46 115/46 O2 Sat by Pulse 100 100 100 Oximetry 04/23/19 04/23/19 04/23/19 03:22 03:30 03:45 Temperature 97.7 F Pulse Rate 77 76 Pulse Rate [ From Monitor] Pulse Rate [ Left Dorsalis Pedis] Pulse Rate [ Left Radial] Pulse Rate [ Right Dorsalis Pedis] Respiratory 16 15 Rate Blood Pressure 111/51 114/46 O2 Sat by Pulse 100 100 Oximetry 04/23/19 04/23/19 04/23/19 04:00 04:15 04:30 Temperature Pulse Rate 72 76 74 Pulse Rate [ 74 From Monitor] Pulse Rate [ 74 Left Dorsalis Pedis] Pulse Rate [ 74 Left Radial] Pulse Rate [ 74 Right Dorsalis Pedis] Respiratory 17 15 15 Rate Blood Pressure 100/45 97/49 104/43 O2 Sat by Pulse 98 98 99 Oximetry 04/23/19 04/23/19 04/23/19 04:45 05:00 05:15 Temperature Pulse Rate 74 84 81 Pulse Rate [ From Monitor] Pulse Rate [ Left Dorsalis Pedis] Pulse Rate [ Left Radial] Pulse Rate [ Right Dorsalis Pedis] Respiratory 14 14 16 Rate Blood Pressure 107/44 105/51 114/43 O2 Sat by Pulse 99 100 98 Oximetry 04/23/19 04/23/19 04/23/19 05:31 05:45 06:00 Temperature Pulse Rate 76 81 84 Pulse Rate [ From Monitor] Pulse Rate [ Left Dorsalis Pedis] Pulse Rate [ Left Radial] Pulse Rate [ Right Dorsalis Pedis] Respiratory 13 13 20 Rate Blood Pressure 111/47 125/50 97/48 O2 Sat by Pulse 100 99 98 Oximetry 04/23/19 04/23/19 04/23/19 06:15 06:31 06:45 Temperature Pulse Rate 89 76 77 Pulse Rate [ From Monitor] Pulse Rate [ Left Dorsalis Pedis] Pulse Rate [ Left Radial] Pulse Rate [ Right Dorsalis Pedis] Respiratory 19 16 19 Rate Blood Pressure 97/48 97/38 97/38 O2 Sat by Pulse 97 98 99 Oximetry 04/23/19 04/23/19 04/23/19 07:00 07:15 07:30 Temperature Pulse Rate 79 86 80 Pulse Rate [ From Monitor] Pulse Rate [ Left Dorsalis Pedis] Pulse Rate [ Left Radial] Pulse Rate [ Right Dorsalis Pedis] Respiratory 20 16 17 Rate Blood Pressure 101/45 106/47 107/48 O2 Sat by Pulse 98 99 100 Oximetry 04/23/19 04/23/19 04/23/19 07:45 08:00 08:15 Temperature Pulse Rate 78 77 78 Pulse Rate [ 80 From Monitor] Pulse Rate [ Left Dorsalis Pedis] Pulse Rate [ Left Radial] Pulse Rate [ Right Dorsalis Pedis] Respiratory 17 17 17 Rate Blood Pressure 97/46 106/46 108/48 O2 Sat by Pulse 99 97 98 Oximetry 04/23/19 04/23/19 04/23/19 08:31 08:37 08:45 Temperature Pulse Rate 79 81 Pulse Rate [ From Monitor] Pulse Rate [ Left Dorsalis Pedis] Pulse Rate [ Left Radial] Pulse Rate [ Right Dorsalis Pedis] Respiratory 16 16 Rate Blood Pressure 111/51 107/53 O2 Sat by Pulse 99 100 97 Oximetry 04/23/19 04/23/19 09:00 09:15 Temperature Pulse Rate 85 Pulse Rate [ From Monitor] Pulse Rate [ Left Dorsalis Pedis] Pulse Rate [ Left Radial] Pulse Rate [ Right Dorsalis Pedis] Respiratory 16 Rate Blood Pressure 106/52 111/54 O2 Sat by Pulse 100 99 Oximetry - General Appearance General appearance: well-developed, appears stated age, other (no distress) EENT: ATNC, PERRL, mucous membranes moist, hearing diminished Neck: supple Respiratory: Present: Clear to Ascultation Cardiology: S1S2, no murmurs Gastrointestinal: normoactive bowel sounds, no tenderness, no distended Integumentary: chronic venous stasis Neurologic: no focal deficit, no asterixis, alert and oriented x3 Musculoskeletal: other (no edema) Psychiatric: cooperative - Lab 04/23/19 05:35 04/23/19 05:35 Most recent lab results Calcium 8.3 mg/dL (8.4-10.2) L 04/23/19 05:35 Phosphorus 2.20 mg/dL (2.5-4.5) L D 04/23/19 05:35 Magnesium 2.30 mg/dL (1.7-2.3) 04/22/19 04:05 Medications & Allergies - Medications Allergies/Adverse Reactions: Allergies No Known Allergies Allergy (Unverified 01/10/15 13:46) Home Medications: Home Medications Medication Instructions Recorded Confirmed Last Taken Type Albuterol Sulfate [Ventolin HFA] 1 puff IH QID PRN 05/11/18 04/22/19 Unknown History Glimepiride [Amaryl] 2 mg PO QDAY 05/11/18 04/22/19 Unknown History Ipratropium/Albuterol Sulfate 1 ampul IH Q6HR 05/11/18 04/22/19 Unknown History [DUONEB *Not for PRN Use*] Amiodarone [Cordarone 200 MG TAB] 200 mg PO BID #60 tablet 05/21/18 04/22/19 Unknown Rx Aspirin [Aspirin BABY CHEW TAB] 81 mg PO QDAY #30 tab.chew 05/21/18 04/22/19 Unk nown Rx Carvedilol [Coreg] 6.25 mg PO BID #60 tablet 05/21/18 04/22/19 Unknown Rx Cilostazol [Pletal] 50 mg PO BID #60 tablet 05/21/18 04/22/19 Unknown Rx Furosemide [Lasix TAB] 40 mg PO DAILY #30 tablet 05/21/18 04/22/19 Unknown Rx Lisinopril [Zestril TAB] 5 mg PO QDAY #30 tablet 05/21/18 04/22/19 Unknown Rx Potassium Chloride [K-Dur] 20 meq PO QDAY #30 tablet 05/21/18 04/22/19 Unknown Rx amLODIPine [Norvasc] 10 mg PO DAILY #30 tablet 05/21/18 04/22/19 Unknown Rx Pravastatin [Pravachol] 40 mg PO QHS 04/22/19 04/22/19 Unknown History Active Medications: Generic Name Dose Route Start Last Admin Trade Name [place] PRN Reason Stop Dose Admin Acetaminophen 650 mg 04/21/19 22:11 Tylenol PO Q4H PRN Pain MILD(1-3)/Fever >100.5/BLAKE Aspirin 81 mg 04/23/19 10:00 04/23/19 09:53 Baby Aspirin PO 81 mg QDAY ALICIA Administration Dextrose 25 gm 04/22/19 08:01 D50w (25gm) Vial IV PRN PRN Hypoglycemia Enoxaparin Sodium 30 mg 04/22/19 10:00 04/23/19 09:53 Lovenox SUB-Q 30 mg QDAY ALICIA Administration Dopamine HCl/Dextrose 800 mg in 250 mls @ 3.608 mls/hr 04/22/19 01:15 04/23/19 05:10 Intropin Drip 800 Mg/D5w 250 Ml IV 2 mcg/kg/min TITR ALICIA 3.608 mls/hr Titration Protocol 2 MCG/KG/MIN Ceftriaxone Sodium 1 gm in 50 mls @ 100 mls/hr 04/22/19 10:00 04/23/19 09:52 Rocephin/Ns 1 Gm/50 Ml IV 100 mls/hr Q12HR ALICIA Administration Protocol Dextrose/Sodium Chloride 1,000 mls @ 100 mls/hr 04/22/19 12:00 04/23/19 06:30 D5ns IV 100 mls/hr DIRECT ALICIA Administration Potassium Phosphate 30 mmol/ 510 mls @ 85 mls/hr 04/23/19 10:00 04/23/19 09:53 Sodium Chloride IV 04/23/19 15:59 85 mls/hr ONCE ONE Administration Ondansetron HCl 4 mg 04/21/19 22:11 Zofran IV Q4H PRN Nausea And Vomiting Pravastatin Sodium 40 mg 04/22/19 22:00 04/22/19 21:55 Pravachol PO 40 mg QHS ALICIA Administration Sodium Chloride 10 ml 04/22/19 10:00 04/23/19 10:06 Sodium Chloride Flush Syringe 10 Ml IV 10 ml BID ALICIA Administration Sodium Chloride 10 ml 04/21/19 22:11 Sodium Chloride Flush Syringe 10 Ml IV PRN PRN LINE FLUSH
--- NOTE | 2019-04-23 11:22 | Consultation ---
History of Present Illness History of present illness: awake Past History Past Medical History: CAD, diabetes, heart failure, hypertension, hyperlipidemia Social history: no significant social history Family history: no significant family history Medications and Allergies Allergies Allergy/AdvReac Type Severity Reaction Status Date / Time No Known Allergies Allergy Unverified 01/10/15 13:46 Home Medications Medication Instructions Recorded Confirmed Last Taken Type Albuterol Sulfate [Ventolin HFA] 1 puff IH QID PRN 05/11/18 04/22/19 Unknown History Glimepiride [Amaryl] 2 mg PO QDAY 05/11/18 04/22/19 Unknown History Ipratropium/Albuterol Sulfate 1 ampul IH Q6HR 05/11/18 04/22/19 Unknown History [DUONEB *Not for PRN Use*] Amiodarone [Cordarone 200 MG TAB] 200 mg PO BID #60 tablet 05/21/18 04/22/19 Unknown Rx Aspirin [Aspirin BABY CHEW TAB] 81 mg PO QDAY #30 tab.chew 05/21/18 04/22/19 Unknown Rx Carvedilol [Coreg] 6.25 mg PO BID #60 tablet 05/21/18 04/22/19 Unknown Rx Cilostazol [Pletal] 50 mg PO BID #60 tablet 05/21/18 04/22/19 Unknown Rx Furosemide [Lasix TAB] 40 mg PO DAILY #30 tablet 05/21/18 04/22/19 Unknown Rx Lisinopril [Zestril TAB] 5 mg PO QDAY #30 tablet 05/21/18 04/22/19 Unknown Rx Potassium Chloride [K-Dur] 20 meq PO QDAY #30 tablet 05/21/18 04/22/19 Unknown Rx amLODIPine [Norvasc] 10 mg PO DAILY #30 tablet 05/21/18 04/22/19 Unknown Rx Pravastatin [Pravachol] 40 mg PO QHS 04/22/19 04/22/19 Unknown History Active Meds: Active Medications Acetaminophen (Tylenol) 650 mg PO Q4H PRN PRN Reason: Pain MILD(1-3)/Fever >100.5/BLAKE Aspirin (Baby Aspirin) 81 mg PO QDAY ALICIA Last Admin: 04/23/19 09:53 Dose: 81 mg Documented by: Dextrose (D50w (25gm) Vial) 25 gm IV PRN PRN PRN Reason: Hypoglycemia Enoxaparin Sodium (Lovenox) 30 mg SUB-Q QDAY [facility] Last Admin: 04/23/19 09:53 Dose: 30 mg Documented by: Dopamine HCl/Dextrose (Intropin Drip 800 Mg/D5w 250 Ml) 800 mg in 250 mls @ 3.608 mls/hr IV TITR [facility]; Protocol Last Titration: 04/23/19 05:10 Dose: 2 mcg/kg/min, 3.608 mls/hr Documented by: Ceftriaxone Sodium (Rocephin/Ns 1 Gm/50 Ml) 1 gm in 50 mls @ 100 mls/hr IV Q 12HR [facility]; Protocol Last Admin: 04/23/19 09:52 Dose: 100 mls/hr Documented by: Dextrose/Sodium Chloride (D5ns) 1,000 mls @ 100 mls/hr IV DIRECT ALICIA Last Admin: 04/23/19 06:30 Dose: 100 mls/hr Documented by: Potassium Phosphate 30 mmol/ (Sodium Chloride) 510 mls @ 85 mls/hr IV ONCE ONE Stop: 04/23/19 15:59 Last Admin: 04/23/19 09:53 Dose: 85 mls/hr Documented by: Ondansetron HCl (Zofran) 4 mg IV Q4H PRN PRN Reason: Nausea And Vomiting Pravastatin Sodium (Pravachol) 40 mg PO QHS [facility] Last Admin: 04/22/19 21:55 Dose: 40 mg Documented by: Sodium Chloride (Sodium Chloride Flush Syringe 10 Ml) 10 ml IV BID [facility] Last Admin: 04/23/19 10:06 Dose: 10 ml Documented by: Sodium Chloride (Sodium Chloride Flush Syringe 10 Ml) 10 ml IV PRN PRN PRN Reason: LINE FLUSH Physical Examination Vital signs: Vital Signs Temp Pulse Resp BP Pulse Ox 98.3 F 80 14 100/37 97 04/21/19 19:08 04/21/19 19:08 04/21/19 19:08 04/21/19 19:08 04/21/19 19:08 Results - Laboratory Findings CBC and BMP: 04/24/19 05:45 04/24/19 05:45 PT/INR, D-dimer PT 15.1 Sec. (12.2-14.9) H 04/21/19 19:29 INR 1.22 (0.87-1.13) H 04/21/19 19:29 Abnormal lab findings: Abnormal Labs 04/21/19 04/21/19 04/21/19 19:18 19:29 19:29 WBC 14.6 H RBC 3.26 L Hgb 9.6 L Hct 28.1 L RDW 15.5 H Lymph % (Auto) 6.1 L Lymph # 0.9 L [place] # 0.9 H Seg Neutrophils % 87.3 H Seg Neuts % (Manual) Lymphocytes % (Manual) Seg Neutrophils # 12.7 H Lymphocytes # (Manual) PT INR Sodium 129 L Potassium 3.4 L Chloride 94.2 L Carbon Dioxide 18 L BUN 80 H Creatinine 6.0 H Glucose 65 L POC Glucose 67 L Lactic Acid Calcium Phosphorus AST 45 H Total Creatine Kinase CK-MB (CK-2) Troponin T Albumin 3.0 L LDL Cholesterol Direct Free T4 Urine WBC (Auto) 04/21/19 04/21/19 04/21/19 19:29 19:29 19:29 WBC RBC Hgb Hct RDW Lymph % (Auto) Lymph # [place] # Seg Neutrophils % Seg Neuts % (Manual) Lymphocytes % (Manual) Seg Neutrophils # Lymphocytes # (Manual) PT 15.1 H INR 1.22 H Sodium Potassium Chloride Carbon Dioxide BUN Creatinine Glucose POC Glucose Lactic Acid Calcium Phosphorus AST Total Creatine Kinase 1462 H CK-MB (CK-2) 10.4 H Troponin T 0.126 H* Albumin LDL Cholesterol Direct 45 L Free T4 1.71 H Urine WBC (Auto) 04/21/19 04/21/19 04/22/19 20:45 22:25 02:49 WBC RBC Hgb Hct RDW Lymph % (Auto) Lymph # [place] # Seg Neutrophils % Seg Neuts % (Manual) Lymphocytes % (Manual) Seg Neutrophils # Lymphocytes # (Manual) PT INR Sodium Potassium Chloride Carbon Dioxide BUN Creatinine Glucose POC Glucose 56 L 158 H Lactic Acid Calcium Phosphorus AST Total Creatine Kinase 1457 H CK-MB (CK-2) 11.2 H Troponin T 0.123 H* Albumin LDL Cholesterol Direct Free T4 Urine WBC (Auto) 04/22/19 04/22/19 04/22/19 04:05 04:05 04:05 WBC RBC Hgb 11.0 L Hct 32.0 L RDW 15.8 H Lymph % (Auto) Lymph # [place] # Seg Neutrophils % Seg Neuts % (Manual) 91.0 H Lymphocytes % (Manual) 5.0 L Seg Neutrophils # Lymphocytes # (Manual) 0.2 L PT INR Sodium 132 L Potassium 3.4 L Chloride Carbon Dioxide 18 L BUN 74 H Creatinine 4.8 H Glucose 48 L POC Glucose Lactic Acid Calcium Phosphorus AST Total Creatine Kinase 1444 H CK-MB (CK-2) 11.9 H Troponin T 0.097 H Albumin LDL Cholesterol Direct Free T4 Urine WBC (Auto) 04/22/19 04/22/19 04/22/19 07:57 08:40 14:24 WBC RBC Hgb Hct RDW Lymph % (Auto) Lymph # [place] # Seg Neutrophils % Seg Neuts % (Manual) Lymphocytes % (Manual) Seg Neutrophils # Lymphocytes # (Manual) PT INR Sodium Potassium Chloride Carbon Dioxide BUN Creatinine Glucose POC Glucose < 40 L 143 H Lactic Acid Calcium Phosphorus AST Total Creatine Kinase CK-MB (CK-2) Troponin T Albumin LDL Cholesterol Direct Free T4 Urine WBC (Auto) > 182.0 H 04/22/19 04/22/19 04/22/19 16:09 18:37 20:25 WBC RBC Hgb Hct RDW Lymph % (Auto) Lymph # [place] # Seg Neutrophils % Seg Neuts % (Manual) Lymphocytes % (Manual) Seg Neutrophils # Lymphocytes # (Manual) PT INR Sodium Potassium Chloride Carbon Dioxide BUN Creatinine Glucose POC Glucose 177 H 186 H 225 H Lactic Acid Calcium Phosphorus AST Total Creatine Kinase CK-MB (CK-2) Troponin T Albumin LDL Cholesterol Direct Free T4 Urine WBC (Auto) 04/22/19 04/22/19 04/22/19 20:32 21:27 23:30 WBC RBC Hgb Hct RDW Lymph % (Auto) Lymph # [place] # Seg Neutrophils % Seg Neuts % (Manual) Lymphocytes % (Manual) Seg Neutrophils # Lymphocytes # (Manual) PT INR Sodium Potassium Chloride Carbon Dioxide BUN Creatinine Glucose POC Glucose 140 H 185 H Lactic Acid 2.20 H* Calcium Phosphorus AST Total Creatine Kinase CK-MB (CK-2) Troponin T Albumin LDL Cholesterol Direct Free T4 Urine WBC (Auto) 04/23/19 04/23/19 05:35 05:35 WBC 22.9 H RBC 3.32 L Hgb 9.6 L Hct 28.3 L RDW 15.8 H Lymph % (Auto) Lymph # [place] # Seg Neutrophils % Seg Neuts % (Manual) Lymphocytes % (Manual) Seg Neutrophils # Lymphocytes # (Manual) PT INR Sodium Potassium 3.2 L Chloride 111.2 H Carbon Dioxide BUN 48 H Creatinine 2.0 H D Glucose 102 H POC Glucose Lactic Acid Calcium 8.3 L Phosphorus 2.20 L D AST Total Creatine Kinase 456 H CK-MB (CK-2) Troponin T 0.042 H D Albumin LDL Cholesterol Direct Free T4 Urine WBC (Auto) - Diagnostic Findings Chest x-ray: report reviewed, image reviewed Assessment and Plan - Patient Problems (1) Acute on chronic renal failure Current Visit: Yes Status: Acute (2) Acute renal failure Current Visit: Yes Status: Acute (3) Hypoglycemia Current Visit: Yes Status: Acute (4) CAD (coronary artery disease) Current Visit: Yes Status: Chronic
[2019-04-23 12:08] LABS: Creatinine,Urine 52.5 mg/dL (0.1-20.0)
[2019-04-23] MEDS: PRAVACHOL PO SCH (21:38)
[2019-04-24] MEDS: D5NS 1,000 ML IV SCH ×2 (01:41→21:17)
[2019-04-24 06:35] LABS: Hematocrit 28.2 % (35.5-45.6); Hemoglobin 9.5 gm/dl (11.8-15.2); Mean Corpuscular HGB Conc 34 % (32-34); Mean Corpuscular Volume 85 fl (84-94); Platelet Count 274 K/mm3 (140-440); Red Blood Count 3.32 M/mm3 (3.65-5.03); Red Cell Distribution Width 16.3 % (13.2-15.2)
[2019-04-24 07:04] LABS: BUN/Creatinine Ratio 24; Blood Urea Nitrogen 19 mg/dL (9-20); Calcium 8.2 mg/dL (8.4-10.2); Hemolysis Index 4
[2019-04-24] MEDS ORDERED: MAGNESIUM SULFATE 4GM/100ML 4 GM/100 ML BAG IV ONE (09:00)
[2019-04-24] MEDS ORDERED: KPHOS 45 MMOL in NACL 0.9% 500 ML 500 ML IV ONE (09:00)
[2019-04-24] MEDS: BABY ASPIRIN PO SCH (09:26)
[2019-04-24] MEDS: LOVENOX SUB-Q SCH (09:26)
[2019-04-24] MEDS: ROCEPHIN/NS 1 GM/50 ML 1 GM/50 ML BAG IV SCH ×2 (09:26→21:17)
--- NOTE | 2019-04-24 09:31 | Progress Note ---
Assessment and Plan - Patient Problems (1) Acute on chronic renal failure Current Visit: Yes Status: Acute (2) Acute renal failure Current Visit: Yes Status: Acute (3) Hypoglycemia Current Visit: Yes Status: Acute (4) CAD (coronary artery disease) Current Visit: Yes Status: Chronic Subjective Interval history: awake feels better today Objective Vital Signs - 12hr 04/23/19 04/23/19 04/23/19 21:31 21:45 22:00 Temperature Pulse Rate 104 H 82 84 Pulse Rate [ From Monitor] Pulse Rate [ Left Dorsalis Pedis] Respiratory 18 20 20 Rate Respiratory 15 Rate [Chest] Respiratory 15 Rate [ Generalized] Blood Pressure 115/57 115/57 123/60 O2 Sat by Pulse 100 99 100 Oximetry 04/23/19 04/23/19 04/23/19 22:15 22:31 22:45 Temperature Pulse Rate 84 93 H 77 Pulse Rate [ From Monitor] Pulse Rate [ Left Dorsalis Pedis] Respiratory 19 14 14 Rate Respiratory Rate [Chest] Respiratory Rate [ Generalized] Blood Pressure 123/60 123/60 123/60 O2 Sat by Pulse 98 100 99 Oximetry 04/23/19 04/23/19 04/23/19 23:00 23:05 23:15 Temperature Pulse Rate 90 90 92 H Pulse Rate [ From Monitor] Pulse Rate [ Left Dorsalis Pedis] Respiratory 17 27 H 17 Rate Respiratory Rate [Chest] Respiratory Rate [ Generalized] Blood Pressure 129/68 129/68 129/68 O2 Sat by Pulse 100 97 99 Oximetry 04/23/19 04/23/19 04/23/19 23:29 23:31 23:38 Temperature 97.5 F L Pulse Rate 88 87 Pulse Rate [ From Monitor] Pulse Rate [ Left Dorsalis Pedis] Respiratory 18 19 Rate Respiratory Rate [Chest] Respiratory Rate [ Generalized] Blood Pressure 129/68 129/68 O2 Sat by Pulse 100 100 Oximetry 04/23/19 04/24/19 04/24/19 23:45 00:00 00:01 Temperature Pulse Rate 86 89 86 Pulse Rate [ 84 From Monitor] Pulse Rate [ 84 Left Dorsalis Pedis] Respiratory 21 17 17 Rate Respiratory Rate [Chest] Respiratory Rate [ Generalized] Blood Pressure 129/68 125/56 O2 Sat by Pulse 100 100 99 Oximetry 04/24/19 04/24/19 04/24/19 00:15 00:31 00:45 Temperature Pulse Rate 85 86 82 Pulse Rate [ From Monitor] Pulse Rate [ Left Dorsalis Pedis] Respiratory 17 17 16 Rate Respiratory Rate [Chest] Respiratory Rate [ Generalized] Blood Pressure 125/56 125/56 125/56 O2 Sat by Pulse 100 100 100 Oximetry 04/24/19 04/24/19 04/24/19 01:01 01:15 01:31 Temperature Pulse Rate 86 89 84 Pulse Rate [ From Monitor] Pulse Rate [ Left Dorsalis Pedis] Respiratory 13 13 18 Rate Respiratory Rate [Chest] Respiratory Rate [ Generalized] Blood Pressure 125/56 125/56 125/56 O2 Sat by Pulse 100 98 100 Oximetry 04/24/19 04/24/19 04/24/19 01:45 02:00 02:15 Temperature Pulse Rate 85 87 84 Pulse Rate [ From Monitor] Pulse Rate [ Left Dorsalis Pedis] Respiratory 19 19 12 Rate Respiratory Rate [Chest] Respiratory Rate [ Generalized] Blood Pressure 120/67 130/64 130/64 O2 Sat by Pulse 100 99 100 Oximetry 04/24/19 04/24/19 04/24/19 02:31 02:45 03:00 Temperature Pulse Rate 85 83 84 Pulse Rate [ From Monitor] Pulse Rate [ Left Dorsalis Pedis] Respiratory 19 17 9 L Rate Respiratory Rate [Chest] Respiratory Rate [ Generalized] Blood Pressure 130/64 130/64 129/63 O2 Sat by Pulse 99 100 99 Oximetry 04/24/19 04/24/19 04/24/19 03:15 03:31 03:45 Temperature 98.9 F Pulse Rate 86 103 H 84 Pulse Rate [ From Monitor] Pulse Rate [ Left Dorsalis Pedis] Respiratory 21 16 10 L Rate Respiratory Rate [Chest] Respiratory Rate [ Generalized] Blood Pressure 129/63 130/64 130/64 O2 Sat by Pulse 97 100 99 Oximetry 04/24/19 04/24/19 04/24/19 04:00 04:01 04:15 Temperature Pulse Rate 89 85 85 Pulse Rate [ 86 From Monitor] Pulse Rate [ 86 Left Dorsalis Pedis] Respiratory 17 20 19 Rate Respiratory Rate [Chest] Respiratory Rate [ Generalized] Blood Pressure 143/65 143/65 O2 Sat by Pulse 100 100 99 Oximetry 04/24/19 04/24/19 04/24/19 04:31 04:45 05:00 Temperature Pulse Rate 94 H 91 H Pulse Rate [ From Monitor] Pulse Rate [ Left Dorsalis Pedis] Respiratory 16 17 Rate Respiratory Rate [Chest] Respiratory Rate [ Generalized] Blood Pressure 129/63 129/63 125/56 O2 Sat by Pulse 100 100 99 Oximetry 04/24/19 04/24/19 04/24/19 05:15 05:31 05:45 Temperature Pulse Rate 88 85 85 Pulse Rate [ From Monitor] Pulse Rate [ Left Dorsalis Pedis] Respiratory 20 18 19 Rate Respiratory Rate [Chest] Respiratory Rate [ Generalized] Blood Pressure 125/56 143/65 143/65 O2 Sat by Pulse 100 100 100 Oximetry 04/24/19 04/24/19 04/24/19 06:01 07:01 08:00 Temperature Pulse Rate 84 82 82 Pulse Rate [ 83 From Monitor] Pulse Rate [ Left Dorsalis Pedis] Respiratory 15 11 L 18 Rate Respiratory Rate [Chest] Respiratory Rate [ Generalized] Blood Pressure 132/60 134/63 O2 Sat by Pulse 100 99 100 Oximetry 04/24/19 04/24/19 08:01 09:13 Temperature Pulse Rate 82 Pulse Rate [ From Monitor] Pulse Rate [ Left Dorsalis Pedis] Respiratory 16 Rate Respiratory Rate [Chest] Respiratory Rate [ Generalized] Blood Pressure 141/62 O2 Sat by Pulse 100 100 Oximetry Constitutional: no acute distress Eyes: non-icteric ENT: oropharynx moist Neck: supple Effort: normal Ascultation: Bilateral: clear Cardiovascular: regular rate and rhythm Gastrointestinal: normoactive bowel sounds, non-distended Integumentary: normal CBC and BMP: 04/24/19 05:45 04/24/19 05:45 ABG, PT/INR, D-dimer: PT/INR, D-dimer PT 15.1 Sec. (12.2-14.9) H 04/21/19 19:29 INR 1.22 (0.87-1.13) H 04/21/19 19:29 Abnormal lab findings: Abnormal Labs 04/21/19 04/21/19 04/21/19 19:18 19:29 19:29 WBC 14.6 H RBC 3.26 L Hgb 9.6 L Hct 28.1 L RDW 15.5 H Lymph % (Auto) 6.1 L Lymph # 0.9 L [place] # 0.9 H Seg Neutrophils % 87.3 H Seg Neuts % (Manual) Lymphocytes % (Manual) Seg Neutrophils # 12.7 H Lymphocytes # (Manual) PT INR Sodium 129 L Potassium 3.4 L Chloride 94.2 L Carbon Dioxide 18 L BUN 80 H Creatinine 6.0 H Glucose 65 L POC Glucose 67 L Lactic Acid Calcium Phosphorus Magnesium AST 45 H Total Creatine Kinase CK-MB (CK-2) Troponin T Albumin 3.0 L LDL Cholesterol Direct Free T4 Urine WBC (Auto) Urine Creatinine 04/21/19 04/21/19 04/21/19 19:29 19:29 19:29 WBC RBC Hgb Hct RDW Lymph % (Auto) Lymph # [place] # Seg Neutrophils % Seg Neuts % (Manual) Lymphocytes % (Manual) Seg Neutrophils # Lymphocytes # (Manual) PT 15.1 H INR 1.22 H Sodium Potassium Chloride Carbon Dioxide BUN Creatinine Glucose POC Glucose Lactic Acid Calcium Phosphorus Magnesium AST Total Creatine Kinase 1462 H CK-MB (CK-2) 10.4 H Troponin T 0.126 H* Albumin LDL Cholesterol Direct 45 L Free T4 1.71 H Urine WBC (Auto) Urine Creatinine 04/21/19 04/21/19 04/22/19 20:45 22:25 02:49 WBC RBC Hgb Hct RDW Lymph % (Auto) Lymph # [place] # Seg Neutrophils % Seg Neuts % (Manual) Lymphocytes % (Manual) Seg Neutrophils # Lymphocytes # (Manual) PT INR Sodium Potassium Chloride Carbon Dioxide BUN Creatinine Glucose POC Glucose 56 L 158 H Lactic Acid Calcium Phosphorus Magnesium AST Total Creatine Kinase 1457 H CK-MB (CK-2) 11.2 H Troponin T 0.123 H* Albumin LDL Cholesterol Direct Free T4 Urine WBC (Auto) Urine Creatinine 04/22/19 04/22/19 04/22/19 04:05 04:05 04:05 WBC RBC Hgb 11.0 L Hct 32.0 L RDW 15.8 H Lymph % (Auto) Lymph # [place] # Seg Neutrophils % Seg Neuts % (Manual) 91.0 H Lymphocytes % (Manual) 5.0 L Seg Neutrophils # Lymphocytes # (Manual) 0.2 L PT INR Sodium 132 L Potassium 3.4 L Chloride Carbon Dioxide 18 L BUN 74 H Creatinine 4.8 H Glucose 48 L POC Glucose Lactic Acid Calcium Phosphorus Magnesium AST Total Creatine Kinase 1444 H CK-MB (CK-2) 11.9 H Troponin T 0.097 H Albumin LDL Cholesterol Direct Free T4 Urine WBC (Auto) Urine Creatinine 04/22/19 04/22/19 04/22/19 07:57 08:40 14:24 WBC RBC Hgb Hct RDW Lymph % (Auto) Lymph # [place] # Seg Neutrophils % Seg Neuts % (Manual) Lymphocytes % (Manual) Seg Neutrophils # Lymphocytes # (Manual) PT INR Sodium Potassium Chloride Carbon Dioxide BUN Creatinine Glucose POC Glucose < 40 L 143 H Lactic Acid Calcium Phosphorus Magnesium AST Total Creatine Kinase CK-MB (CK-2) Troponin T Albumin LDL Cholesterol Direct Free T4 Urine WBC (Auto) > 182.0 H Urine Creatinine 04/22/19 04/22/19 04/22/19 16:09 18:37 20:25 WBC RBC Hgb Hct RDW Lymph % (Auto) Lymph # [place] # Seg Neutrophils % Seg Neuts % (Manual) Lymphocytes % (Manual) Seg Neutrophils # Lymphocytes # (Manual) PT INR Sodium Potassium Chloride Carbon Dioxide BUN Creatinine Glucose POC Glucose 177 H 186 H 225 H Lactic Acid Calcium Phosphorus Magnesium AST Total Creatine Kinase CK-MB (CK-2) Troponin T Albumin LDL Cholesterol Direct Free T4 Urine WBC (Auto) Urine Creatinine 04/22/19 04/22/19 04/22/19 20:32 21:27 23:30 WBC RBC Hgb Hct RDW Lymph % (Auto) Lymph # [place] # Seg Neutrophils % Seg Neuts % (Manual) Lymphocytes % (Manual) Seg Neutrophils # Lymphocytes # (Manual) PT INR Sodium Potassium Chloride Carbon Dioxide BUN Creatinine Glucose POC Glucose 140 H 185 H Lactic Acid 2.20 H* Calcium Phosphorus Magnesium AST Total Creatine Kinase CK-MB (CK-2) Troponin T Albumin LDL Cholesterol Direct Free T4 Urine WBC (Auto) Urine Creatinine 04/23/19 04/23/19 04/23/19 05:35 05:35 08:52 WBC 22.9 H RBC 3.32 L Hgb 9.6 L Hct 28.3 L RDW 15.8 H Lymph % (Auto) Lymph # [place] # Seg Neutrophils % Seg Neuts % (Manual) Lymphocytes % (Manual) Seg Neutrophils # Lymphocytes # (Manual) PT INR Sodium Potassium 3.2 L Chloride 111.2 H Carbon Dioxide BUN 48 H Creatinine 2.0 H D Glucose 102 H POC Glucose Lactic Acid Calcium 8.3 L Phosphorus 2.20 L D Magnesium AST Total Creatine Kinase 456 H CK-MB (CK-2) Troponin T 0.042 H D Albumin LDL Cholesterol Direct Free T4 Urine WBC (Auto) Urine Creatinine 52.5 H 04/23/19 04/23/19 04/23/19 14:24 16:49 18:14 WBC RBC Hgb Hct RDW Lymph % (Auto) Lymph # [place] # Seg Neutrophils % Seg Neuts % (Manual) Lymphocytes % (Manual) Seg Neutrophils # Lymphocytes # (Manual) PT INR Sodium Potassium Chloride Carbon Dioxide BUN Creatinine Glucose POC Glucose 164 H 138 H 128 H Lactic Acid Calcium Phosphorus Magnesium AST Total Creatine Kinase CK-MB (CK-2) Troponin T Albumin LDL Cholesterol Direct Free T4 Urine WBC (Auto) Urine Creatinine 04/23/19 04/23/19 04/24/19 20:09 21:35 00:05 WBC RBC Hgb Hct RDW Lymph % (Auto) Lymph # [place] # Seg Neutrophils % Seg Neuts % (Manual) Lymphocytes % (Manual) Seg Neutrophils # Lymphocytes # (Manual) PT INR Sodium Potassium Chloride Carbon Dioxide BUN Creatinine Glucose POC Glucose 197 H 265 H 232 H Lactic Acid Calcium Phosphorus Magnesium AST Total Creatine Kinase CK-MB (CK-2) Troponin T Albumin LDL Cholesterol Direct Free T4 Urine WBC (Auto) Urine Creatinine 04/24/19 04/24/19 04/24/19 01:51 04:26 05:35 WBC RBC Hgb Hct RDW Lymph % (Auto) Lymph # [place] # Seg Neutrophils % Seg Neuts % (Manual) Lymphocytes % (Manual) Seg Neutrophils # Lymphocytes # (Manual) PT INR Sodium Potassium Chloride Carbon Dioxide BUN Creatinine Glucose POC Glucose 190 H 193 H 180 H Lactic Acid Calcium Phosphorus Magnesium AST Total Creatine Kinase CK-MB (CK-2) Troponin T Albumin LDL Cholesterol Direct Free T4 Urine WBC (Auto) Urine Creatinine 04/24/19 04/24/19 04/24/19 05:45 05:45 08:59 WBC 12.7 H RBC 3.32 L Hgb 9.5 L Hct 28.2 L RDW 16.3 H Lymph % (Auto) Lymph # [place] # Seg Neutrophils % Seg Neuts % (Manual) Lymphocytes % (Manual) Seg Neutrophils # Lymphocytes # (Manual) PT INR Sodium Potassium 3.5 L Chloride 107.9 H Carbon Dioxide BUN Creatinine Glucose 191 H POC Glucose 158 H Lactic Acid Calcium 8.2 L Phosphorus 1.30 L D Magnesium 1.50 L AST Total Creatine Kinase 217 H CK-MB (CK-2) Troponin T Albumin LDL Cholesterol Direct Free T4 Urine WBC (Auto) Urine Creatinine
[2019-04-24] MEDS: SODIUM CHLORIDE FLUSH SYRINGE 10 ML IV SCH ×2 (09:46→21:17)
--- NOTE | 2019-04-24 09:52 | Progress Note ---
Assessment and Plan Assessment and plan: Assessment Acute kidney injury Hypotension, etiology unclear at this point Abnormal cardiac enzymes hypoglycemia secondary to poor appetite and Glimepiride Rhabdomyolysis CHF, stable Coronary Artery disease Hyperlipidemia Peripheral vascular disease UTI to r/o sepsis Hypokalemia Hypomagnesemia Hypophosphatemia Plan Continue D5NS Replace Potassium, Mg, Phos and recheck in am Nephrology following monitor blood sugar, encourage oral intake, placed on Renal diet for now Hold all antihypertensives and diabetic medications Ceftriaxone for UTI DVT prophylaxis with Lovenox. Off dopamine Will transfer to Telemetry History Interval history: Generalized weakness improved Low blood glucose, resolved Off Dopamine drip Hospitalist Physical - Physical exam Narrative exam: Gen: Not in acute distress, lying in bed,obese HEENT: Normocephalic, atraumatic Neck: supple, no JVD Heart: S1 and S2 reg, no murmurs, rubs or gallop Lungs: Clear, no crackles, no wheeze Abd: soft, non tender, non distended, normal BS Ext: No edema, no clubbing, no cyanosis, Neuro: Awake,alert, moves all ext, non focal - Constitutional Vitals: Temp Pulse Resp BP Pulse Ox 98.9 F 82 16 141/62 99 04/24/19 03:31 04/24/19 08:01 04/24/19 08:01 04/24/19 08:01 04/24/19 09:37 General appearance: Present: no acute distress, obese Results - Labs CBC & Chem 7: 04/24/19 05:45 04/24/19 05:45 Labs: Laboratory Last Values WBC 12.7 K/mm3 (4.5-11.0) H 04/24/19 05:45 RBC 3.32 M/mm3 (3.65-5.03) L 04/24/19 05:45 Hgb 9.5 gm/dl (11.8-15.2) L 04/24/19 05:45 Hct 28.2 % (35.5-45.6) L 04/24/19 05:45 MCV 85 fl (84-94) 04/24/19 05:45 MCH 29 pg (28-32) 04/24/19 05:45 MCHC 34 % (32-34) 04/24/19 05:45 RDW 16.3 % (13.2-15.2) H 04/24/19 05:45 Plt Count 274 K/mm3 (140-440) 04/24/19 05:45 Lymph % (Auto) 6.1 % (13.4-35.0) L 04/21/19 19:29 [place] % (Auto) 6.2 % (0.0-7.3) 04/21/19 19:29 Eos % (Auto) 0.2 % (0.0-4.3) 04/21/19 19: Baso % (Auto) 0.2 % (0.0-1.8) 04/21/19 19: Lymph # 0.9 K/mm3 (1.2-5.4) L 04/21/19 19: [place] # 0.9 K/mm3 (0.0-0.8) H 04/21/19 19: Eos # 0.0 K/mm3 (0.0-0.4) 04/21/19 19: Baso # 0.0 K/mm3 (0.0-0.1) 04/21/19 19:29 Add Manual Diff Complete 04/22/19 04:05 Total Counted 100 04/22/19 04:05 Seg Neutrophils % Voice Professor 04/22/19 04:05 Seg Neuts % (Manual) 91.0 % (40.0-70.0) H 04/22/19 04:05 1.0 % 04/22/19 04:05 5.0 % (13.4-35.0) L 04/22/19 04:05 Reactive Lymphs % (Man) 0 % 04/22/19 04:05 0 % (0.0-7.3) 04/22/19 04:05 3.0 % (0.0-4.3) 04/22/19 04:05 0 % (0.0-1.8) 04/22/19 04:05 0 % 04/22/19 04:05 0 % 04/22/19 04:05 0 % 04/22/19 04:05 0 % 04/22/19 04:05 Nucleated RBC % Not Reportable 04/22/19 04:05 Seg Neutrophils # 12.7 K/mm3 (1.8-7.7) H 04/21/19 19:29 Seg Neutrophils # Man 4.2 K/mm3 (1.8-7.7) 04/22/19 04:05 Band Neutrophils # 0.0 K/mm3 04/22/19 04:05 0.2 K/mm3 (1.2-5.4) L 04/22/19 04:05 Abs React Lymphs (Man) 0.0 K/mm3 04/22/19 04:05 0.0 K/mm3 (0.0-0.8) 04/22/19 04:05 0.1 K/mm3 (0.0-0.4) 04/22/19 04:05 0.0 K/mm3 (0.0-0.1) 04/22/19 04:05 0.0 K/mm3 04/22/19 04:05 0.0 K/mm3 04/22/19 04:05 0.0 K/mm3 04/22/19 04:05 Blast Cells # 0.0 K/mm3 04/22/19 04:05 WBC Morphology Not Reportable 04/22/19 04:05 Hypersegmented Neuts Not Reportable 04/22/19 04:05 Hyposegmented Neuts Not Reportable 04/22/19 04:05 Hypogranular Neuts Not Reportable 04/22/19 04:05 Not Reportable 04/22/19 04:05 Not Reportable 04/22/19 04:05 Not Reportable 04/22/19 04:05 Not Reportable 04/22/19 04:05 Not Reportable 04/22/19 04:05 Not Reportable 04/22/19 04:05 Consistent w auto 04/22/19 04:05 Not Reportable 04/22/19 04:05 Plt Clumps, EDTA Not Reportable 04/22/19 04:05 Not Reportable 04/22/19 04:05 Not Reportable 04/22/19 04:05 Not Reportable 04/22/19 04:05 Plt Morphology Comment Not Reportable 04/22/19 04:05 RBC Morphology Not Reportable 04/22/19 04:05 Dimorphic RBCs Not Reportable 04/22/19 04:05 Few 04/22/19 04:05 1+ 04/22/19 04:05 Not Reportable 04/22/19 04:05 1+ 04/22/19 04:05 Few 04/22/19 04:05 Not Reportable 04/22/19 04:05 Not Reportable 04/22/19 04:05 Not Reportable 04/22/19 04:05 Not Reportable 04/22/19 04:05 Not Reportable 04/22/19 04:05 Not Reportable 04/22/19 04:05 Few 04/22/19 04:05 Not Reportable 04/22/19 04:05 Not Reportable 04/22/19 04:05 Not Reportable 04/22/19 04:05 Not Reportable 04/22/19 04:05 Not Reportable 04/22/19 04:05 Not Reportable 04/22/19 04:05 Not Reportable 04/22/19 04:05 Acanthocytes (Spur) Few 04/22/19 04:05 Rouleaux Not Reportable 04/22/19 04:05 Not Reportable 04/22/19 04:05 Not Reportable 04/22/19 04:05 Not Reportable 04/22/19 04:05 Not Reportable 04/22/19 04:05 Hem Pathologist Commnt No 04/22/19 04:05 PT 15.1 Sec. (12.2-14.9) H 04/21/19 19:29 INR 1.22 (0.87-1.13) H 04/21/19 19:29 APTT 25.3 Sec. (24.2-36.6) 04/21/19 19:29 Sodium 142 mmol/L (137-145) 04/24/19 05:45 Potassium 3.5 mmol/L (3.6-5.0) L 04/24/19 05:45 Chloride 107.9 mmol/L (98-107) H 04/24/19 05:45 Carbon Dioxide 25 mmol/L (22-30) 04/24/19 05:45 13 mmol/L 04/24/19 05:45 BUN 19 mg/dL (9-20) 04/24/19 05:45 0.8 mg/dL (0.8-1.5) D 04/24/19 05:45 Estimated GFR > 60 ml/min 04/24/19 05:45 24 % 04/24/19 05:45 Glucose 191 mg/dL (75-100) H 04/24/19 05:45 POC Glucose 158 (70-105) H 04/24/19 08:59 5.6 % (4-6) 04/23/19 05:35 Lactic Acid 1.20 mmol/L (0.7-2.0) 04/23/19 05:35 Calcium 8.2 mg/dL (8.4-10.2) L 04/24/19 05:45 Phosphorus 1.30 mg/dL (2.5-4.5) L D 04/24/19 05:45 Magnesium 1.50 mg/dL (1.7-2.3) L 04/24/19 05:45 0.50 mg/dL (0.1-1.2) 04/21/19 19:29 AST 45 units/L (5-40) H 04/21/19 19:29 ALT 20 units/L (7-56) 04/21/19 19:29 77 units/L (35-129) 04/21/19 19:29 217 units/L (55-170) H 04/24/19 05:45 CK-MB (CK-2) 11.9 ng/mL (0.0-4.0) H 04/22/19 04:05 CK-MB (CK-2) Rel Index 0.8 (0-4) 04/22/19 04:05 0.042 ng/mL (0.00-0.029) H D 04/23/19 05:35 7.4 g/dL (6.3-8.2) 04/21/19 19:29 3.0 g/dL (3.9-5) L 04/21/19 19:29 0.7 % 04/21/19 19:29 Triglycerides 64 mg/dL (2-149) 04/21/19 19:29 Cholesterol 105 mg/dL (50-199) 04/21/19 19:29 45 mg/dL (50-130) L 04/21/19 19:29 47 mg/dL (40-59) 04/21/19 19:29 2.23 % 04/21/19 19:29 TSH 1.410 mlU/mL (0.270-4.200) 04/21/19 19:29 Free T4 1.71 ng/dL (0.76-1.46) H 04/21/19 19:29 PTH Intact 60.08 pg/mL (15-65) 04/22/19 04:05 Yellow (Yellow) 04/22/19 08:40 Cloudy (Clear) 04/22/19 08:40 5.0 (5.0-7.0) 04/22/19 08:40 Ur Specific [place] 1.010 (1.003-1.030) 04/22/19 08:40 <15 mg/dl mg/dL (Negative) 04/22/19 08:40 Neg mg/dL (Negative) 04/22/19 08:40 Neg mg/dL (Negative) 04/22/19 08:40 Mod (Negative) 04/22/19 08:40 Neg (Negative) 04/22/19 08:40 Neg (Negative) 04/22/19 08:40 < 2.0 mg/dL (<2.0) 04/22/19 08:40 Ur Leukocyte Esterase Lg (Negative) 04/22/19 08:40 > 182.0 /HPF (0.0-6.0) H 04/22/19 08:40 31.0 /HPF (0.0-6.0) 04/22/19 08:40 U Epithel Cells (Auto) < 1.0 /HPF (0-13.0) 04/22/19 08:40 2+ /HPF (Negative) 04/22/19 08:40 1+ /HPF 04/22/19 08:40 Few /HPF 04/22/19 08:40 2+ /HPF 04/22/19 08:40 52.5 mg/dL (0.1-20.0) H 04/23/19 08:52 59 mmol/L 04/23/19 08:52 Active Medications - Current Medications Current Medications: Generic Name Dose Route Start Last Admin Trade Name Freq PRN Reason Stop Dose Admin Acetaminophen 650 mg 04/21/19 22:11 Tylenol PO Q4H PRN Pain MILD(1-3)/Fever >100.5/BLAKE Aspirin 81 mg 04/23/19 10:00 04/24/19 09:26 Baby Aspirin PO 81 mg QDAY ALICIA Administration Dextrose 25 gm 04/22/19 08:01 D50w (25gm) Vial IV PRN PRN Hypoglycemia Enoxaparin Sodium 30 mg 04/22/19 10:00 04/24/19 09:26 Lovenox SUB-Q 30 mg QDAY ALICIA Administration Dopamine HCl/Dextrose 800 mg in 250 mls @ 3.608 mls/hr 04/22/19 01:15 04/23/19 11:30 Intropin Drip 800 Mg/D5w 250 Ml IV 0 mcg/kg/min TITR ALICIA 0 mls/hr Titration Protocol 2 MCG/KG/MIN Ceftriaxone Sodium 1 gm in 50 mls @ 100 mls/hr 04/22/19 10:00 04/24/19 09:26 Rocephin/Ns 1 Gm/50 Ml IV 100 mls/hr Q12HR ALICIA Administration Protocol Dextrose/Sodium Chloride 1,000 mls @ 100 mls/hr 04/22/19 12:00 04/24/19 01:41 D5ns IV 100 mls/hr DIRECT ALICIA Administration Potassium Phosphate 45 mmol/ 515 mls @ 85 mls/hr 04/24/19 09:00 04/24/19 09:26 Sodium Chloride IV 04/24/19 15:03 85 mls/hr ONCE ONE Administration Magnesium Sulfate 4 gm in 100 mls @ 25 mls/hr 04/24/19 09:00 04/24/19 09:27 Magnesium Sulfate 4gm/100ml IV 04/24/19 12:59 25 mls/hr ONCE ONE Administration Ondansetron HCl 4 mg 04/21/19 22:11 Zofran IV Q4H PRN Nausea And Vomiting Pravastatin Sodium 40 mg 04/22/19 22:00 04/23/19 21:38 Pravachol PO 40 mg QHS ALICIA Administration Sodium Chloride 10 ml 04/22/19 10:00 04/24/19 09:46 Sodium Chloride Flush Syringe 10 Ml IV 10 ml BID ALICIA Administration Sodium Chloride 10 ml 04/21/19 22:11 Sodium Chloride Flush Syringe 10 Ml IV PRN PRN LINE FLUSH Nutrition/Malnutrition Assess - Dietary Evaluation Nutrition/Malnutrition Findings: Nutrition Notes Start: 04/22/19 16:22 Freq: Status: Active Protocol: Document 04/22/19 16:22 RM (Rec: 04/22/19 16:32 RM [id number]) Nutrition Notes 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 Robert 16 points. Pt stated that his appetite is good and that he ate all of his breakfast. Burn Absent Trauma Absent #1 Nutrition Diagnosis Increased nutrient needs ( specify in comment below) Comments: arginine, glutamine Etiology wound healing As Evidenced by Signs and Symptoms sacral PU, R foot diabetic ulcer Is patient on ventilator? No Is Patient Ambulatory and/or Out of Bed No [facility]EE[facility] 1915.596 Kcal/Kg value to use for calculation 17 Approximate Energy Requirements Using 1593 kcal/Kg Calculation Used for Recommendations Kcal/kg Additional Notes Protein Needs:96-120g (1.2-1. 5g/kg 80kg adjBW) Fluid Needs: 1 ml/kcal Nutrition Intervention Change Diet Order: Continue current Add Supplement/Snack (indicate name/kcal Angel BID /protein ) Provides kCal: 190 Provides Protein (gm) 5 Goal #1 Angel intake Anticipated Discharge Needs: Renal diet Follow-Up By: 04/25/19 Additional Comments Follow for PO intakes, Angel intake
--- NOTE | 2019-04-24 11:48 | Progress Note ---
Assessment and Plan 1. Acute kidney injury: Vasomotor SOFYA in the setting of hypotension. Renal US was negative for hydro. Urine studies pending. Continue IV fluids. Renal function is better. Monitor renal function. Renal prognosis is guarded. Avoid nephrotoxic agents. Meds dosage based on GFR. 2. FEN: Hypokalemia, replete K. Anion gap MA, improved. Replete Mg anf Phos. Continue IV fluids. Monitor lytes. 3. Hypotension / shock: Off pressors. 4. Suspected sepsis: UTI. 5. Hypoglycemia. 6. H/o CHF. 7. Anemia: Monitor H/H. Subjective Date of service: 04/24/19 Interval history: Patient was seen and examined at the bedside. Doing ok. Objective - Vital Signs Vital signs: Vital Signs - 12hr 04/24/19 04/24/19 04/24/19 00:00 00:01 00:15 Temperature Pulse Rate 89 86 85 Pulse Rate [ 84 From Monitor] Pulse Rate [ 84 Left Dorsalis Pedis] Respiratory 17 17 17 Rate Respiratory Rate [Chest] Respiratory Rate [ Generalized] Blood Pressure 125/56 125/56 O2 Sat by Pulse 100 99 100 Oximetry 04/24/19 04/24/19 04/24/19 00:31 00:45 01:01 Temperature Pulse Rate 86 82 86 Pulse Rate [ From Monitor] Pulse Rate [ Left Dorsalis Pedis] Respiratory 17 16 13 Rate Respiratory Rate [Chest] Respiratory Rate [ Generalized] Blood Pressure 125/56 125/56 125/56 O2 Sat by Pulse 100 100 100 Oximetry 04/24/19 04/24/19 04/24/19 01:15 01:31 01:45 Temperature Pulse Rate 89 84 85 Pulse Rate [ From Monitor] Pulse Rate [ Left Dorsalis Pedis] Respiratory 13 18 19 Rate Respiratory Rate [Chest] Respiratory Rate [ Generalized] Blood Pressure 125/56 125/56 120/67 O2 Sat by Pulse 98 100 100 Oximetry 04/24/19 04/24/19 04/24/19 02:00 02:15 02:31 Temperature Pulse Rate 87 84 85 Pulse Rate [ From Monitor] Pulse Rate [ Left Dorsalis Pedis] Respiratory 19 12 19 Rate Respiratory Rate [Chest] Respiratory Rate [ Generalized] Blood Pressure 130/64 130/64 130/64 O2 Sat by Pulse 99 100 99 Oximetry 04/24/19 04/24/19 04/24/19 02:45 03:00 03:15 Temperature Pulse Rate 83 84 86 Pulse Rate [ From Monitor] Pulse Rate [ Left Dorsalis Pedis] Respiratory 17 9 L 21 Rate Respiratory Rate [Chest] Respiratory Rate [ Generalized] Blood Pressure 130/64 129/63 129/63 O2 Sat by Pulse 100 99 97 Oximetry 04/24/19 04/24/19 04/24/19 03:31 03:45 04:00 Temperature 98.9 F Pulse Rate 103 H 84 89 Pulse Rate [ 86 From Monitor] Pulse Rate [ 86 Left Dorsalis Pedis] Respiratory 16 10 L 17 Rate Respiratory Rate [Chest] Respiratory Rate [ Generalized] Blood Pressure 130/64 130/64 O2 Sat by Pulse 100 99 100 Oximetry 04/24/19 04/24/19 04/24/19 04:01 04:15 04:31 Temperature Pulse Rate 85 85 94 H Pulse Rate [ From Monitor] Pulse Rate [ Left Dorsalis Pedis] Respiratory 20 19 16 Rate Respiratory Rate [Chest] Respiratory Rate [ Generalized] Blood Pressure 143/65 143/65 129/63 O2 Sat by Pulse 100 99 100 Oximetry 04/24/19 04/24/19 04/24/19 04:45 05:00 05:15 Temperature Pulse Rate 91 H 88 Pulse Rate [ From Monitor] Pulse Rate [ Left Dorsalis Pedis] Respiratory 17 20 Rate Respiratory Rate [Chest] Respiratory Rate [ Generalized] Blood Pressure 129/63 125/56 125/56 O2 Sat by Pulse 100 99 100 Oximetry 04/24/19 04/24/19 04/24/19 05:31 05:45 06:01 Temperature Pulse Rate 85 85 84 Pulse Rate [ From Monitor] Pulse Rate [ Left Dorsalis Pedis] Respiratory 18 19 15 Rate Respiratory Rate [Chest] Respiratory Rate [ Generalized] Blood Pressure 143/65 143/65 132/60 O2 Sat by Pulse 100 100 100 Oximetry 04/24/19 04/24/19 04/24/19 07:01 08:00 08:01 Temperature 98.1 F Pulse Rate 82 82 82 Pulse Rate [ 83 From Monitor] Pulse Rate [ Left Dorsalis Pedis] Respiratory 11 L 18 16 Rate Respiratory Rate [Chest] Respiratory Rate [ Generalized] Blood Pressure 134/63 141/62 O2 Sat by Pulse 99 100 100 Oximetry 04/24/19 04/24/19 04/24/19 09:01 09:37 10:00 Temperature Pulse Rate 92 H 87 Pulse Rate [ From Monitor] Pulse Rate [ Left Dorsalis Pedis] Respiratory 16 15 Rate Respiratory 17 Rate [Chest] Respiratory 17 Rate [ Generalized] Blood Pressure 142/74 126/78 O2 Sat by Pulse 98 99 96 Oximetry - General Appearance General appearance: well-developed, appears stated age, other (no distress) EENT: ATNC, PERRL, hearing diminished Neck: supple Respiratory: Present: Clear to Ascultation Cardiology: S1S2, no murmurs Gastrointestinal: normoactive bowel sounds, no tenderness, no distended Integumentary: chronic venous stasis Neurologic: no focal deficit, no asterixis, alert and oriented x3 Musculoskeletal: other (no edema) Psychiatric: cooperative - Lab 04/24/19 05:45 04/24/19 05:45 Most recent lab results Calcium 8.2 mg/dL (8.4-10.2) L 04/24/19 05:45 Phosphorus 1.30 mg/dL (2.5-4.5) L D 04/24/19 05:45 Magnesium 1.50 mg/dL (1.7-2.3) L 04/24/19 05:45 52.5 mg/dL (0.1-20.0) H 04/23/19 08:52 59 mmol/L 04/23/19 08:52 Medications & Allergies - Medications Allergies/Adverse Reactions: Allergies No Known Allergies Allergy (Unverified 01/10/15 13:46) Home Medications: Home Medications Medication Instructions Recorded Confirmed Last Taken Type Albuterol Sulfate [Ventolin HFA] 1 puff IH QID PRN 05/11/18 04/22/19 Unknown History Glimepiride [Amaryl] 2 mg PO QDAY 05/11/18 04/22/19 Unknown History Ipratropium/Albuterol Sulfate 1 ampul IH Q6HR 05/11/18 04/22/19 Unknown History [DUONEB *Not for PRN Use*] Amiodarone [Cordarone 200 MG TAB] 200 mg PO BID #60 tablet 05/21/18 04/22/19 Unknown Rx Aspirin [Aspirin BABY CHEW TAB] 81 mg PO QDAY #30 tab.chew 05/21/18 04/22/19 Unknown Rx Carvedilol [Coreg] 6.25 mg PO BID #60 tablet 05/21/18 04/22/19 Unknown Rx Cilostazol [Pletal] 50 mg PO BID #60 tablet 05/21/18 04/22/19 Unknown Rx Furosemide [Lasix TAB] 40 mg PO DAILY #30 tablet 05/21/18 04/22/19 Unknown Rx Lisinopril [Zestril TAB] 5 mg PO QDAY #30 tablet 05/21/18 04/22/19 Unknown Rx Potassium Chloride [K-Dur] 20 meq PO QDAY #30 tablet 05/21/18 04/22/19 Unknown Rx amLODIPine [Norvasc] 10 mg PO DAILY #30 tablet 05/21/18 04/22/19 Unknown Rx Pravastatin [Pravachol] 40 mg PO QHS 04/22/19 04/22/19 Unknown History Active Medications: Generic Name Dose Route Start Last Admin Trade Name Freq PRN Reason Stop Dose Admin Acetaminophen 650 mg 04/21/19 22:11 Tylenol PO Q4H PRN Pain MILD(1-3)/Fever >100.5/BLAKE Aspirin 81 mg 04/23/19 10:00 04/24/19 09:26 Baby Aspirin PO 81 mg QDAY ALICIA Administration Dextrose 25 gm 04/22/19 08:01 D50w (25gm) Vial IV PRN PRN Hypoglycemia Enoxaparin Sodium 30 mg 04/22/19 10:00 04/24/19 09:26 Lovenox SUB-Q 30 mg QDAY ALICIA Administration Dopamine HCl/Dextrose 800 mg in 250 mls @ 3.608 mls/hr 04/22/19 01:15 04/23/19 11:30 Intropin Drip 800 Mg/D5w 250 Ml IV 0 mcg/kg/min TITR ALICIA 0 mls/hr Titration Protocol 2 MCG/KG/MIN Ceftriaxone Sodium 1 gm in 50 mls @ 100 mls/hr 04/22/19 10:00 04/24/19 09:26 Rocephin/Ns 1 Gm/50 Ml IV 100 mls/hr Q12HR ALICIA Administration Protocol Dextrose/Sodium Chloride 1,000 mls @ 100 mls/hr 04/22/19 12:00 04/24/19 01:41 D5ns IV 100 mls/hr DIRECT ALICIA Administration Potassium Phosphate 45 mmol/ 515 mls @ 85 mls/hr 04/24/19 09:00 04/24/19 09:26 Sodium Chloride IV 04/24/19 15:03 85 mls/hr ONCE ONE Administration Magnesium Sulfate 4 gm in 100 mls @ 25 mls/hr 04/24/19 09:00 04/24/19 09:27 Magnesium Sulfate 4gm/100ml IV 04/24/19 12:59 25 mls/hr ONCE ONE Administration Ondansetron HCl 4 mg 04/21/19 22:11 Zofran IV Q4H PRN Nausea And Vomiting Pravastatin Sodium 40 mg 04/22/19 22:00 04/23/19 21:38 Pravachol PO 40 mg QHS ALICIA Administration Sodium Chloride 10 ml 04/22/19 10:00 04/24/19 09:46 Sodium Chloride Flush Syringe 10 Ml IV 10 ml BID ALICIA Administration Sodium Chloride 10 ml 04/21/19 22:11 Sodium Chloride Flush Syringe 10 Ml IV PRN PRN LINE FLUSH
--- NOTE | 2019-04-24 13:46 | Progress Note ---
Assessment and Plan Patient is stable from a cardiac standpoint. Would consider resuming home HF medications as tolerated if BPs remain stable off dopamine; however, would hold lisinopril given renal status. The patient has been seen in conjunction with Dr. Nuñez, who agrees with assessment and plan. - Patient Problems (1) Acute on chronic renal failure Current Visit: Yes Status: Acute (2) Anemia Current Visit: Yes Status: Acute (3) Hyponatremia Current Visit: Yes Status: Resolved (4) Hypotension Current Visit: Yes Status: Acute (5) NSTEMI (non-ST elevated myocardial infarction) Current Visit: Yes Status: Acute (6) UTI (urinary tract infection) Current Visit: Yes Status: Acute (7) Automatic implantable cardioverter-defibrillator in situ Current Visit: Yes Status: Chronic (8) CAD (coronary artery disease) Current Visit: Yes Status: Chronic (9) History of ventricular tachycardia Current Visit: Yes Status: Chronic (10) Ischemic cardiomyopathy Current Visit: Yes Status: Chronic (11) Stented coronary artery Current Visit: Yes Status: Chronic Subjective Date of service: 04/24/19 Interval history: Patient evaluated in the ICU prior to transfer to telemetry. He is sitting up in bed in [facility]. Dopamine now off. SR in 70s on telemetry. Objective Last Vital Signs Temp 98.8 F 04/24/19 12:46 Pulse 78 04/24/19 11:00 Resp 18 04/24/19 12:46 BP 127/61 04/24/19 12:46 Pulse Ox 99 04/24/19 12:01 - Physical Examination General: No Apparent Distress HEENT: Positive: PERRL, Normocephaly, Mucus Membranes Moist Neck: Positive: neck supple, trachea midline Cardiac: Positive: Reg Rate and Rhythm Lungs: Positive: Normal Exam Neuro: Positive: Grossly Intact Abdomen: Positive: Soft. Negative: Tender /Rectal: Other (deferred) Skin: Positive: Clear. Negative: Rash Musculoskeletal: No Pain Extremities: Present: normal. Absent: edema - Labs and Meds CBC 04/24/19 Range/Units 05:45 WBC 12.7 H (4.5-11.0) K/mm3 RBC 3.32 L (3.65-5.03) M/mm3 Hgb 9.5 L (11.8-15.2) gm/dl Hct 28.2 L (35.5-45.6) % Plt Count 274 (140-440) K/mm3 Comprehensive Metabolic Panel 04/24/19 Range/Units 05:45 Sodium 142 (137-145) mmol/L Potassium 3.5 L (3.6-5.0) mmol/L Chloride 107.9 H (98-107) mmol/L Carbon Dioxide 25 (22-30) mmol/L BUN 19 (9-20) mg/dL Creatinine 0.8 D (0.8-1.5) mg/dL Glucose 191 H (75-100) mg/dL Calcium 8.2 L (8.4-10.2) mg/dL - Imaging and Cardiology EKG: report reviewed, image reviewed Echo: report reviewed ( 05/2017 showed EF 25-30%, LA mod dilated, RA mildly dilated, trace MR, mild to mod TR, mild LVH. ) Cardiac cath: report reviewed (01/2015 showed nonobstructive CAD, 30-40% prox RCA, 25% mid RCA, 25% distal left circ, EF 40-45%. ) - Telemetry EKG Rhythm: Sinus Rhythm - EKG Sinus rhythms and dysrhythmias: sinus rhythm AV and intraventricular conduction: intraventricular conducti
--- NOTE | 2019-04-24 13:54 | Consultation ---
History of Present Illness - Reason for Consult Consult date: 04/24/19 - History of Present Illness In the ED, temp 103.1, HR 142, R20, BP 99, BP 124/80. WBC 7.5. Hg 9.6. Plat 269. Creat 1.2. UA with 156 wbc, large LE. Blood cultures 03/09/2019 GNR 1 of 4. Urine culture 03/09/2019 10-100K multiple sp. CXR negative. CT chest showed atelectasis versus possible small infiltrate in posterior segment left lower lobe. Review of Systems: General: no fever, chills, no malaise Cutaneous: no rash, pruritus Head: no headaches or injury Eyes: no changes in vision, eye pain, double vision Ears: no ear pain, ear discharge, ringing or hearing loss Nose: no nose bleeding, stuffiness Mouth & throat: no bleeding gums, no horseness, no dental problems, or swollen g lands Neck: no pain, node enlargement/lumps, tyroid enlargement or tenderness Respiratory: no cough, wheezing, sputum, hemoptysis, pleuritic chest pain Cardiovascular: no chest pain, leg edema, cyanosis, PARMAR, orthopnea Musculoskeletal: no edema Gastrointestinal: +nausea, vomiting, no hematemesis, diarrhea, constipation, melena, bright red blood in stools, fecal incontinence, jaundice Genitourinary/Reproductive: + frequent urination, dysuria, hematuria, incontinence Neurogical: no seizures, no headaches, no weakness, no paresthesias, no loss of speech or vision; no memory loss, no vertigo, no tremors, no numbness Psychiatric: stable mood; no excessive anxiety, sadness or moodiness General appearance: Alert in NAD Eyes: anicteric sclerae, moist conjunctivae; no lid-lag; PERRLA HENT: Atraumatic; oropharynx clear with moist mucous membranes and no mucosal ulcerations/no oral thrush; normal hard and soft palate. Normal external ears. Neck: Trachea midline; supple, no thyromegaly or lymphadenopathy Lungs: CTA, with normal respiratory effort and no intercostal retractions CV: RRR no murmur Abdomen: Soft, non-tender; no masses or hepatosplenomegaly Extremities: no edema, cyanosis Skin: Normal temperature, turgor and texture; no rash, ulcers or subcutaneous nodules Psych: Appropriate affect, alert and oriented to person, place and time. Neuro: alert and oriented x 3. Moving all extermities Cultures: Blood cultures 03/09/2019 no growth today Urine culture 03/09/2019 Assessment: 1) Severe Sepsis: Present on admission, manifested by fever, tachycardia, increased lactate. Etiology most likely 2) 3) 4) 5) Recommendations: - follow-up blood cultures, urine culture - Will follow. Zehra Glover MD Infectious Diseases [employer] [facility] ([facility]) M [phone] O [phone] Past History Past Medical History: CAD, diabetes, heart failure, hypertension, hyperlipidemia Social history: no significant social history Family history: no significant family history Medications and Allergies Allergies Allergy/AdvReac Type Severity Reaction Status Date / Time No Known Allergies Allergy Unverified 01/10/15 13:46 Home Medications Medication Instructions Recorded Confirmed Last Taken Type Albuterol Sulfate [Ventolin HFA] 1 puff IH QID PRN 05/11/18 04/22/19 Unknown History Glimepiride [Amaryl] 2 mg PO QDAY 05/11/18 04/22/19 Unknown History Ipratropium/Albuterol Sulfate 1 ampul IH Q6HR 05/11/18 04/22/19 Unknown History [DUONEB *Not for PRN Use*] Amiodarone [Cordarone 200 MG TAB] 200 mg PO BID #60 tablet 05/21/18 04/22/19 Unknown Rx Aspirin [Aspirin BABY CHEW TAB] 81 mg PO QDAY #30 tab.chew 05/21/18 04/22/19 Unknown Rx Carvedilol [Coreg] 6.25 mg PO BID #60 tablet 05/21/18 04/22/19 Unknown Rx Cilostazol [Pletal] 50 mg PO BID #60 tablet 05/21/18 04/22/19 Unknown Rx Furosemide [Lasix TAB] 40 mg PO DAILY #30 tablet 05/21/18 04/22/19 Unknown Rx Lisinopril [Zestril TAB] 5 mg PO QDAY #30 tablet 05/21/18 04/22/19 Unknown Rx Potassium Chloride [K-Dur] 20 meq PO QDAY #30 tablet 05/21/18 04/22/19 Unknown Rx amLODIPine [Norvasc] 10 mg PO DAILY #30 tablet 05/21/18 04/22/19 Unknown Rx Pravastatin [Pravachol] 40 mg PO QHS 04/22/19 04/22/19 Unknown History Active Meds: Active Medications Acetaminophen (Tylenol) 650 mg PO Q4H PRN PRN Reason: Pain MILD(1-3)/Fever >100.5/BLAKE Aspirin (Baby Aspirin) 81 mg PO QDAY [facility] Last Admin: 04/24/19 09:26 Dose: 81 mg Documented by: Dextrose (D50w (25gm) Vial) 25 gm IV PRN PRN PRN Reason: Hypoglycemia Enoxaparin Sodium (Lovenox) 30 mg SUB-Q QDAY [facility] Last Admin: 04/24/19 09:26 Dose: 30 mg Documented by: Ceftriaxone Sodium (Rocephin/Ns 1 Gm/50 Ml) 1 gm in 50 mls @ 100 mls/hr IV Q12HR [facility]; Protocol Last Admin: 04/24/19 09:26 Dose: 100 mls/hr Documented by: Dextrose/Sodium Chloride (D5ns) 1,000 mls @ 100 mls/hr IV DIRECT [facility] Last Admin: 04/24/19 01:41 Dose: 100 mls/hr Documented by: Potassium Phosphate 45 mmol/ (Sodium Chloride) 515 mls @ 85 mls/hr IV ONCE ONE Stop: 04/24/19 15:03 Last Admin: 04/24/19 09:26 Dose: 85 mls/hr Documented by: Ondansetron HCl (Zofran) 4 mg IV Q4H PRN PRN Reason: Nausea And Vomiting Pravastatin Sodium (Pravachol) 40 mg PO QHS [facility] Last Admin: 04/23/19 21:38 Dose: 40 mg Documented by: Sodium Chloride (Sodium Chloride Flush Syringe 10 Ml) 10 ml IV BID [facility] Last Admin: 04/24/19 09:46 Dose: 10 ml Documented by: Sodium Chloride (Sodium Chloride Flush Syringe 10 Ml) 10 ml IV PRN PRN PRN Reason: LINE FLUSH Physical Examination - Constitutional Vitals: Vital Signs Temp Pulse Resp BP Pulse Ox 98.8 F 78 18 127/61 99 04/24/19 12:46 04/24/19 11:00 04/24/19 12:46 04/24/19 12:46 04/24/19 12:01 Temperature -Last 24 Hours Temperature 98.8 F Temperature 98.0 F Temperature 98.1 F Temperature 98.9 F Temperature 97.5 F Temperature 98.1 F Temperature 97.5 F Results - Labs CBC & Chem 7: 04/24/19 05:45 04/24/19 05:45 Labs: Abnormal lab results 04/23/19 04/23/19 04/23/19 Range/Units 14:24 16:49 18:14 WBC (4.5-11.0) K/mm3 RBC (3.65-5.03) M/mm3 Hgb (11.8-15.2) gm/dl Hct (35.5-45.6) % RDW (13.2-15.2) % Potassium (3.6-5.0) mmol/L Chloride (98-107) mmol/L Glucose (75-100) mg/dL POC Glucose 164 H 138 H 128 H (70-105) Calcium (8.4-10.2) mg/dL Phosphorus (2.5-4.5) mg/dL Magnesium (1.7-2.3) mg/dL Total Creatine Kinase (55-170) units/L 04/23/19 04/23/19 04/24/19 Range/Units 20:09 21:35 00:05 WBC (4.5-11.0) K/mm3 RBC (3.65-5.03) M/mm3 Hgb (11.8-15.2) gm/dl Hct (35.5-45.6) % RDW (13.2-15.2) % Potassium (3.6-5.0) mmol/L Chloride (98-107) mmol/L Glucose (75-100) mg/dL POC Glucose 197 H 265 H 232 H (70-105) Calcium (8.4-10.2) mg/dL Phosphorus (2.5-4.5) mg/dL Magnesium (1.7-2.3) mg/dL Total Creatine Kinase (55-170) units/L 04/24/19 04/24/19 04/24/19 Range/Units 01:51 04:26 05:35 WBC (4.5-11.0) K/mm3 RBC (3.65-5.03) M/mm3 Hgb (11.8-15.2) gm/dl Hct (35.5-45.6) % RDW (13.2-15.2) % Potassium (3.6-5.0) mmol/L Chloride (98-107) mmol/L Glucose (75-100) mg/dL POC Glucose 190 H 193 H 180 H (70-105) Calcium (8.4-10.2) mg/dL Phosphorus (2.5-4.5) mg/dL Magnesium (1.7-2.3) mg/dL Total Creatine Kinase (55-170) units/L 04/24/19 04/24/19 04/24/19 Range/Units 05:45 05:45 08:59 WBC 12.7 H (4.5-11.0) K/mm3 RBC 3.32 L (3.65-5.03) M/mm3 Hgb 9.5 L (11.8-15.2) gm/dl Hct 28.2 L (35.5-45.6) % RDW 16.3 H (13.2-15.2) % Potassium 3.5 L (3.6-5.0) mmol/L Chloride 107.9 H (98-107) mmol/L Glucose 191 H (75-100) mg/dL POC Glucose 158 H (70-105) Calcium 8.2 L (8.4-10.2) mg/dL Phosphorus 1.30 L D (2.5-4.5) mg/dL Magnesium 1.50 L (1.7-2.3) mg/dL Total Creatine Kinase 217 H (55-170) units/L
--- NOTE | 2019-04-24 14:58 | Consultation ---
History of Present Illness - Reason for Consult Consult date: 04/24/19 UTI possible sepsis Requesting physician: JOSEPH DEL RIO - History of Present Illness This patient is an 84-silvino-old male with a past medical history of CHF, coronary artery disease, diabetes, hypertension, hyperlipidemia, PVD that was brought to the ED on 04/21/19 with complaints of generalized weakness. The family stated th at his blood sugar and blood pressure were low at home.and that he has had a poor appetite over the past 2 months. On admission WBC 14.6, Creatinine 6.0,Temperature 98.3, HR 80, UA with pyuria, WBC >182, Large LE. Urine culture 10-100 of mixed culture >2 organisms. Blood culture shows no growth to date. CXR show no consolidation. Renal US shows Bilateral medical renal disease with no hydronephrosis and normal size kidneys. Bilateral benign cysts. Review of Systems: General: no fever, chills, nightsweats, unintentional weight change, + change in appetite Cutaneous: no rash, pruritus Head: no headaches or injury Eyes: no changes in vision, eye pain, double vision Ears: no ear pain, ear discharge, ringing or hearing loss Nose: no nose bleeding, stuffiness Mouth & throat: no bleeding gums, no horseness, no dental problems, or swollen glands Neck: no pain, node enlargement/lumps, tyroid enlargement or tenderness Respiratory: no cough, wheezing, sputum, hemoptysis, pleuritic chest pain Cardiovascular: no chest pain, leg edema, cyanosis, PARMAR, orthopnea Musculoskeletal: no decreased joint motion, bone or joint pain, joint swelling, muscle aches Gastrointestinal: no nausea, vomiting, hematemesis, diarrhea, constipation, melena, bright red blood in stools, fecal incontinence, jaundice Genitourinary/Reproductive: no frequent urination, no dysuria, hematuria, incontinence Neurogical: no seizures, no headaches, no weakness, no paresthesias, no loss of speech or vision; no memory loss, no vertigo, no tremors, no numbness Psychiatric: stable mood; no excessive anxiety, sadness or moodiness Past History Past Medical History: CAD, diabetes, heart failure, hypertension, hyperlipidemia Social history: no significant social history Family history: no significant family history Medications and Allergies Allergies Allergy/AdvReac Type Severity Reaction Status Date / Time No Known Allergies Allergy Unverified 01/10/15 13:46 Home Medications Medication Instructions Recorded Confirmed Last Taken Type Albuterol Sulfate [Ventolin HFA] 1 puff IH QID PRN 05/11/18 04/22/19 Unknown History Glimepiride [Amaryl] 2 mg PO QDAY 05/11/18 04/22/19 Unknown History Ipratropium/Albuterol Sulfate 1 ampul IH Q6HR 05/11/18 04/22/19 Unknown History [DUONEB *Not for PRN Use*] Amiodarone [Cordarone 200 MG TAB] 200 mg PO BID #60 tablet 05/21/18 04/22/19 Unknown Rx Aspirin [Aspirin BABY CHEW TAB] 81 mg PO QDAY #30 tab.chew 05/21/18 04/22/19 Unknown Rx Carvedilol [Coreg] 6.25 mg PO BID #60 tablet 05/21/18 04/22/19 Unknown Rx Cilostazol [Pletal] 50 mg PO BID #60 tablet 05/21/18 04/22/19 Unknown Rx Furosemide [Lasix TAB] 40 mg PO DAILY #30 tablet 05/21/18 04/22/19 Unknown Rx Lisinopril [Zestril TAB] 5 mg PO QDAY #30 tablet 05/21/18 04/22/19 Unknown Rx Potassium Chloride [K-Dur] 20 meq PO QDAY #30 tablet 05/21/18 04/22/19 Unknown Rx amLODIPine [Norvasc] 10 mg PO DAILY #30 tablet 05/21/18 04/22/19 Unknown Rx Pravastatin [Pravachol] 40 mg PO QHS 04/22/19 04/22/19 Unknown History Active Meds: Active Medications Acetaminophen (Tylenol) 650 mg PO Q4H PRN PRN Reason: Pain MILD(1-3)/Fever >100.5/BLAKE Aspirin (Baby Aspirin) 81 mg PO QDAY [facility] Last Admin: 04/24/19 09:26 Dose: 81 mg Documented by: Dextrose (D50w (25gm) Vial) 25 gm IV PRN PRN PRN Reason: Hypoglycemia Enoxaparin Sodium (Lovenox) 30 mg SUB-Q QDAY [facility] Last Admin: 04/24/19 09:26 Dose: 30 mg Documented by: Ceftriaxone Sodium (Rocephin/Ns 1 Gm/50 Ml) 1 gm in 50 mls @ 100 mls/hr IV Q12HR [facility]; Protocol Last Admin: 04/24/19 09:26 Dose: 100 mls/hr Documented by: Dextrose/Sodium Chloride (D5ns) 1,000 mls @ 100 mls/hr IV DIRECT [facility] Last Admin: 04/24/19 01:41 Dose: 100 mls/hr Documented by: Potassium Phosphate 45 mmol/ (Sodium Chloride) 515 mls @ 85 mls/hr IV ONCE ONE Stop: 04/24/19 15:03 Last Admin: 04/24/19 09:26 Dose: 85 mls/hr Documented by: Ondansetron HCl (Zofran) 4 mg IV Q4H PRN PRN Reason: Nausea And Vomiting Pravastatin Sodium (Pravachol) 40 mg PO QHS [facility] Last Admin: 04/23/19 21:38 Dose: 40 mg Documented by: Sodium Chloride (Sodium Chloride Flush Syringe 10 Ml) 10 ml IV BID [facility] Last Admin: 04/24/19 09:46 Dose: 10 ml Documented by: Sodium Chloride (Sodium Chloride Flush Syringe 10 Ml) 10 ml IV PRN PRN PRN Reason: LINE FLUSH Physical Examination - Physical Exam Narrative exam: Constitutional: Alert, cooperative. No acute distress Head, Ears, Nose: Normocephalic, atraumatic. External ears, nose normal Eyes: Conjunctivae/corneas clear. No icterus. No ptosis. Neck: Supple, no meningeal signs Oral: dentition poor., no thrush. Cardiovascular: S1, S2 normal. Respiratory: Good air entry, clear to auscultation bilaterally GI: Soft, non-tender; bowel sounds normal. No peritoneal signs Musculoskeletal: No pedal edema, no cyanosis. Skin: No rash or abscess. Hem/Lymphatic: No palpable cervical or supraclavicular nodes. No lymphangitis Psych: Mood ok. Affect normal Neurological: Awake, alert, oriented. - Constitutional Vitals: Vital Signs Temp Pulse Resp BP Pulse Ox 98.8 F 78 18 127/61 99 04/24/19 12:46 04/24/19 11:00 04/24/19 12:46 04/24/19 12:46 04/24/19 12:01 Temperature -Last 24 Hours Temperature 98.8 F Temperature 98.0 F Temperature 98.1 F Temperature 98.9 F Temperature 97.5 F Temperature 98.1 F Temperature 97.5 F Results - Labs CBC & Chem 7: 04/24/19 05:45 04/24/19 05:45 Labs: Abnormal lab results 04/23/19 04/23/19 04/23/19 Range/Units 16:49 18:14 20:09 WBC (4.5-11.0) K/mm3 RBC (3.65-5.03) M/mm3 Hgb (11.8-15.2) gm/dl Hct (35.5-45.6) % RDW (13.2-15.2) % Potassium (3.6-5.0) mmol/L Chloride (98-107) mmol/L Glucose (75-100) mg/dL POC Glucose 138 H 128 H 197 H (70-105) Calcium (8.4-10.2) mg/dL Phosphorus (2.5-4.5) mg/dL Magnesium (1.7-2.3) mg/dL Total Creatine Kinase (55-170) units/L 04/23/19 04/24/19 04/24/19 Range/Units 21:35 00:05 01:51 WBC (4.5-11.0) K/mm3 RBC (3.65-5.03) M/mm3 Hgb (11.8-15.2) gm/dl Hct (35.5-45.6) % RDW (13.2-15.2) % Potassium (3.6-5.0) mmol/L Chloride (98-107) mmol/L Glucose (75-100) mg/dL POC Glucose 265 H 232 H 190 H (70-105) Calcium (8.4-10.2) mg/dL Phosphorus (2.5-4.5) mg/dL Magnesium (1.7-2.3) mg/dL Total Creatine Kinase (55-170) units/L 04/24/19 04/24/19 04/24/19 Range/Units 04:26 05:35 05:45 WBC (4.5-11.0) K/mm3 RBC (3.65-5.03) M/mm3 Hgb (11.8-15.2) gm/dl Hct (35.5-45.6) % RDW (13.2-15.2) % Potassium 3.5 L (3.6-5.0) mmol/L Chloride 107.9 H (98-107) mmol/L Glucose 191 H (75-100) mg/dL POC Glucose 193 H 180 H (70-105) Calcium 8.2 L (8.4-10.2) mg/dL Phosphorus 1.30 L D (2.5-4.5) mg/dL Magnesium 1.50 L (1.7-2.3) mg/dL Total Creatine Kinase 217 H (55-170) units/L 04/24/19 04/24/19 Range/Units 05:45 08:59 WBC 12.7 H (4.5-11.0) K/mm3 RBC 3.32 L (3.65-5.03) M/mm3 Hgb 9.5 L (11.8-15.2) gm/dl Hct 28.2 L (35.5-45.6) % RDW 16.3 H (13.2-15.2) % Potassium (3.6-5.0) mmol/L Chloride (98-107) mmol/L Glucose (75-100) mg/dL POC Glucose 158 H (70-105) Calcium (8.4-10.2) mg/dL Phosphorus (2.5-4.5) mg/dL Magnesium (1.7-2.3) mg/dL Total Creatine Kinase (55-170) units/L - Imaging and Cardiology Chest x-ray: report reviewed (no consolidation) Assessment and Plan Cultures: 04/21/19 Blood: No growth to date 04/22/19 Urine 10-100K of >2 organisms. A/P: 84-year-old male with a past medical history of CHF, coronary artery disease, diabetes, hypertension, hyperlipidemia, PVD that was brought to the ED on 04/21/19 with complaints of generalized weakness. The family stated that his blood sugar and blood pressure were low at home.and that he has had a poor appetite over the past 2 months. Admitted with: 1. Leukocytosis on admission: etiology most likely UTI. U/A consistent with UTI. Urine culture 10-100K of >2 organisms. No fever. Blood cultures show no growth to date. CXR show no consolidation. Currently being treated with Ceftriaxone. 2. UTI: , UA with pyuria, WBC >182, Large LE. Urine culture Urine culture 10- 100K of >2 organisms. Renal US unremarkable. 3. SOFYA: nephrology following.. Keep antibiotics renally dosed 4.. Rhabdomyolysis 5.. PVD 6. Type 2 diabetes ; uncontrolled Recommendations: -continue ceftriaxone 1gm IV every 12 hours -follow-up blood cultures [facility] M: [phone] O:[phone]
[2019-04-24] MEDS: PRAVACHOL PO SCH (21:17)
[2019-04-25 04:57] LABS: Hematocrit 28.7 % (35.5-45.6); Hemoglobin 9.8 gm/dl (11.8-15.2); Mean Corpuscular HGB Conc 34 % (32-34); Mean Corpuscular Volume 86 fl (84-94); Platelet Count 256 K/mm3 (140-440); Red Blood Count 3.36 M/mm3 (3.65-5.03); Red Cell Distribution Width 16.1 % (13.2-15.2)
[2019-04-25 05:07] LABS: BUN/Creatinine Ratio 17; Blood Urea Nitrogen 12 mg/dL (9-20); Calcium 8.2 mg/dL (8.4-10.2); Hemolysis Index 0
[2019-04-25] MEDS ORDERED: SODIUM PHOSPHATE 45 MMOL in NACL 0.9% 500 ML 500 ML IV ONE (08:30)
--- NOTE | 2019-04-25 09:25 | Progress Note ---
Assessment and Plan 84-year-old male with a history of CHF, coronary artery disease, diabetes, hypertension, hyperlipidemia, PVD was brought to the emergency room by family because of generalized weakness. His blood sugar and blood pressure were low at home. He has poor appetite over the last 2 months, only at breakfast today, took his medications. He needs assistance to ambulate Acute kidney injury Hypotension, etiology unclear at this point Abnormal cardiac enzymes hypoglycemia secondary to poor appetite and Glimepiride Rhabdomyolysis CHF, stable Coronary Artery disease Hyperlipidemia Peripheral vascular disease UTI to r/o sepsis Hypokalemia Hypomagnesemia - corrected Hypophosphatemia Plan Continue D5NS Replace, Phos and recheck in am Nephrology following monitor blood sugar, encourage oral intake, placed on Renal diet for now Hold all antihypertensives and diabetic medications Ceftriaxone for UTI DVT prophylaxis with Lovenox. Off dopamine Code status: Pt is full code. Disposition: Per hospital course Subjective Date of service: 04/25/19 Principal diagnosis: Acute kidney injury, PAD, Sepsis, hypomagnesemia, hypoglycemia Interval history: Pt seen and examined. No fever chest pain or shortness of breath. Objective - Exam Narrative Exam: Constitutional: Well-nourished well-developed. In no distress Head: Normocephalic atraumatic Eyes: Pupils are equal round and reactive to light Nose: No enlarged turbinates, no septal deviation. Mouth: Moist mucous membranes. Neck: Supple no thyromegaly. No bruit. No JVD Heart: Regular rate and rhythm, S1-S2 normal. No rubs murmurs or gallop Lungs: Clear to auscultation bilaterally. no rales or rhonchi Abdomen: Soft, nontender. Bowel sound are present. Extremities: 2+ edema, no cyanosis, no clubbing. Neuro: Alert oriented Oriented x3. No focal sensory or motor deficit. Skin: No rashes or hyperpigmented spots Musculoskeletal system: No joint pain or swelling Hematological: No petechia or subcutanous hemorrhages. Immunological: No multiple septic spots on the skin Lymphatic: No generalized lymphadenopathy Psychiatry: Euthymic. Calm. - Constitutional Vitals: Vital Signs - 12hr 04/24/19 04/24/19 04/25/19 22:15 23:11 01:45 Temperature 98.9 F Pulse Rate 89 81 Respiratory 20 Rate Blood Pressure 120/63 O2 Sat by Pulse 98 96 Oximetry 07/08/19 07/08/19 03:27 08:04 Temperature 98.8 F 99.0 F Pulse Rate 83 79 Respiratory 20 20 Rate Blood Pressure 121/57 134/69 O2 Sat by Pulse 96 99 Oximetry - Labs CBC & Chem 7: 04/25/19 03:28 04/25/19 03:28 Labs: Abnormal lab results 04/24/19 04/24/19 04/25/19 Range/Units 12:11 21:05 03:28 RBC (3.65-5.03) M/mm3 Hgb (11.8-15.2) gm/dl Hct (35.5-45.6) % RDW (13.2-15.2) % Creatinine 0.7 L (0.8-1.5) mg/dL Glucose 197 H (75-100) mg/dL POC Glucose 189 H 172 H (70-105) Calcium 8.2 L (8.4-10.2) mg/dL Phosphorus 1.30 L (2.5-4.5) mg/dL 04/25/19 04/25/19 Range/Units 03:28 07:48 RBC 3.36 L (3.65-5.03) M/mm3 Hgb 9.8 L (11.8-15.2) gm/dl Hct 28.7 L (35.5-45.6) % RDW 16.1 H (13.2-15.2) % Creatinine (0.8-1.5) mg/dL Glucose (75-100) mg/dL POC Glucose 159 H (70-105) Calcium (8.4-10.2) mg/dL Phosphorus (2.5-4.5) mg/dL
[2019-04-25] MEDS ORDERED: KPHOS 15 MMOL in NACL 0.9% 250ML 250 ML IV ONE (09:27)
[2019-04-25] MEDS: BABY ASPIRIN PO SCH (09:58)
[2019-04-25] MEDS: LOVENOX SUB-Q SCH (09:58)
[2019-04-25] MEDS: PHOS-NAK PO SCH ×3 (10:05→22:23)
--- NOTE | 2019-04-25 10:13 | Progress Note ---
Assessment and Plan Resume home coreg and lisinopril. Currently stable cardiac status. Nothing further to add from cardiac perspective at this time. Will sign off. Recommend pt follow up in our office with Dr. Wade within 1-2 weeks of hospital discharge ([phone]). The patient has been seen in conjunction with Dr. Nuñez who agrees with the assessment and plan of care. - Patient Problems (1) Acute on chronic renal failure Current Visit: Yes Status: Acute (2) UTI (urinary tract infection) Current Visit: Yes Status: Acute (3) Hypotension Current Visit: Yes Status: Acute (4) NSTEMI (non-ST elevated myocardial infarction) Current Visit: Yes Status: Acute Plan to address problem: type II (5) CAD (coronary artery disease) Current Visit: Yes Status: Chronic (6) Stented coronary artery Current Visit: Yes Status: Chronic (7) Ischemic cardiomyopathy Current Visit: Yes Status: Chronic (8) Automatic implantable cardioverter-defibrillator in situ Current Visit: Yes Status: Chronic (9) History of ventricular tachycardia Current Visit: Yes Status: Chronic (10) Hyperlipidemia Current Visit: Yes Status: Chronic (11) Anemia Current Visit: Yes Status: Acute Subjective Date of service: 04/25/19 Principal diagnosis: Acute kidney injury, PAD, Sepsis, hypomagnesemia, hypoglycemia Interval history: pt resting in bed, states he is feeling well. Objective Last Vital Signs Temp 99.0 F 04/25/19 08:04 Pulse 79 04/25/19 08:04 Resp 20 04/25/19 08:04 BP 134/69 04/25/19 08:04 Pulse Ox 99 04/25/19 08:04 - Physical Examination General: No Apparent Distress HEENT: Positive: PERRL, Normocephaly, Mucus Membranes Moist Neck: Positive: neck supple, trachea midline Cardiac: Positive: Reg Rate and Rhythm, S1/S2 Lungs: Positive: Decreased Breath Sounds Neuro: Positive: Grossly Intact Abdomen: Positive: Soft. Negative: Tender /Rectal: Other (deferred) Skin: Positive: Clear. Negative: Rash Musculoskeletal: No Pain Extremities: Present: normal. Absent: edema - Labs and Meds CBC 04/25/19 Range/Units 03:28 WBC 9.0 (4.5-11.0) K/mm3 RBC 3.36 L (3.65-5.03) M/mm3 Hgb 9.8 L (11.8-15.2) gm/dl Hct 28.7 L (35.5-45.6) % Plt Count 256 (140-440) K/mm3 Comprehensive Metabolic Panel 04/25/19 Range/Units 03:28 Sodium 137 (137-145) mmol/L Potassium 3.7 (3.6-5.0) mmol/L Chloride 102.5 (98-107) mmol/L Carbon Dioxide 25 (22-30) mmol/L BUN 12 (9-20) mg/dL Creatinine 0.7 L (0.8-1.5) mg/dL Glucose 197 H (75-100) mg/dL Calcium 8.2 L (8.4-10.2) mg/dL - Imaging and Cardiology EKG: report reviewed, image reviewed Echo: report reviewed ( 05/2017 showed EF 25-30%, LA mod dilated, RA mildly dilated, trace MR, mild to mod TR, mild LVH. ) Cardiac cath: report reviewed (01/2015 showed nonobstructive CAD, 30-40% prox RCA, 25% mid RCA, 25% distal left circ, EF 40-45%. ) - EKG Sinus rhythms and dysrhythmias: sinus rhythm AV and intraventricular conduction: intraventricular conducti
[2019-04-25] MEDS: D5NS 1,000 ML IV SCH (10:17)
[2019-04-25] MEDS: ROCEPHIN/NS 1 GM/50 ML 1 GM/50 ML BAG IV SCH (10:18)
--- NOTE | 2019-04-25 10:28 | Event Note ---
Date: 04/25/19 Patient is a private patient of Dr. Santos. I discussed with him and he has taken over case from today.
[2019-04-25] MEDS: SODIUM CHLORIDE FLUSH SYRINGE 10 ML IV SCH ×2 (10:31→22:23)
--- NOTE | 2019-04-25 10:49 | Progress Note ---
Assessment and Plan Cultures: 04/21/19 Blood: No growth to date 04/22/19 Urine 10-100K of >2 organisms. A/P: 84-year-old male with a past medical history of CHF, coronary artery disease, diabetes, hypertension, hyperlipidemia, PVD that was brought to the ED on 04/21/19 with complaints of generalized weakness. The family stated that his blood sugar and blood pressure were low at home.and that he has had a poor appetite over the past 2 months. Admitted with: 1. Leukocytosis on admission: etiology most likely UTI. U/A consistent with UTI. Urine culture 10-100K of >2 organisms. No fever. Blood cultures show no growth to date. CXR show no consolidation. Currently being treated with Ceftriaxone. 2. UTI: , UA with pyuria, WBC >182, Large LE. Urine culture Urine culture 10- 100K of >2 organisms. Renal US unremarkable. 3. SOFYA: nephrology following.. Keep antibiotics renally dosed 4.. Rhabdomyolysis 5.. PVD 6. Type 2 diabetes ; uncontrolled Recommendations: -continue ceftriaxone 1gm IV every 24 hours, D4 -follow-up blood cultures - Anticipate discharge on Cefdinir 300mg PO BID for total 7 days ending 04-28-19 [facility] M: [phone] O:[phone] Subjective Date of service: 04/25/19 Principal diagnosis: Acute kidney injury, PAD, Sepsis, hypomagnesemia, hypoglycemia Interval history: Patient seen and examined. Reports no acute distress. No fevers. Objective - Exam Narrative Exam: Constitutional: Alert, cooperative. No acute distress Head, Ears, Nose: Normocephalic, atraumatic. External ears, nose normal Eyes: Conjunctivae/corneas clear. No icterus. No ptosis. Neck: Supple, no meningeal signs Oral: dentition poor., no thrush. Cardiovascular: S1, S2 normal. Respiratory: Good air entry, clear to auscultation bilaterally GI: Soft, non-tender; bowel sounds normal. No peritoneal signs Musculoskeletal: No pedal edema, no cyanosis. Skin: No rash or abscess. Hem/Lymphatic: No palpable cervical or supraclavicular nodes. No lymphangitis Psych: Mood ok. Affect normal Neurological: Awake, alert, oriented. - Constitutional Vitals: Vital Signs Temp Pulse Resp BP Pulse Ox 99.0 F 79 20 134/69 99 04/25/19 08:04 04/25/19 08:04 04/25/19 08:04 04/25/19 08:04 04/25/19 08:04 Temperature -Last 24 Hours Temperature 99.0 F Temperature 98.8 F Temperature 98.9 F Temperature 98.5 F Temperature 98.5 F Temperature 98.8 F Temperature 98.0 F - Labs CBC & Chem 7: 04/25/19 03:28 04/25/19 03:28 Labs: Abnormal lab results 04/24/19 04/24/19 04/25/19 Range/Units 12:11 21:05 03:28 RBC (3.65-5.03) M/mm3 Hgb (11.8-15.2) gm/dl Hct (35.5-45.6) % RDW (13.2-15.2) % Creatinine 0.7 L (0.8-1.5) mg/dL Glucose 197 H (75-100) mg/dL POC Glucose 189 H 172 H (70-105) Calcium 8.2 L (8.4-10.2) mg/dL Phosphorus 1.30 L (2.5-4.5) mg/dL 04/25/19 04/25/19 Range/Units 03:28 07:48 RBC 3.36 L (3.65-5.03) M/mm3 Hgb 9.8 L (11.8-15.2) gm/dl Hct 28.7 L (35.5-45.6) % RDW 16.1 H (13.2-15.2) % Creatinine (0.8-1.5) mg/dL Glucose (75-100) mg/dL POC Glucose 159 H (70-105) Calcium (8.4-10.2) mg/dL Phosphorus (2.5-4.5) mg/dL
[2019-04-25] MEDS: ZESTRIL PO SCH (11:45)
--- NOTE | 2019-04-25 14:02 | Progress Note ---
Assessment and Plan 1. Acute kidney injury: Vasomotor SOFYA in the setting of hypotension. Renal US was negative for hydro. Renal function is better. Monitor renal function. Renal prognosis is guarded. Avoid nephrotoxic agents. Meds dosage based on GFR. 2. FEN: Hypokalemia, replete K. Anion gap MA, improved. Replete Phos. Monitor lytes. 3. Hypotension / shock: Off pressors. 4. Suspected sepsis: UTI. 5. Hypoglycemia. 6. H/o CHF. 7. Anemia: Monitor H/H. Subjective Date of service: 04/25/19 Principal diagnosis: Acute kidney injury, PAD, Sepsis, hypomagnesemia, hypoglycemia Interval history: Patient was seen and examined at the bedside. Doing ok. Objective - Vital Signs Vital signs: Vital Signs - 12hr 04/25/19 04/25/19 04/25/19 03:27 08:04 10:00 Temperature 98.8 F 99.0 F Pulse Rate 83 79 Respiratory 20 20 Rate Respiratory 14 Rate [Chest] Blood Pressure 121/57 134/69 O2 Sat by Pulse 96 99 Oximetry 04/25/19 04/25/19 04/25/19 11:22 11:45 13:45 Temperature 98.0 F Pulse Rate 83 80 77 Respiratory 18 Rate Respiratory Rate [Chest] Blood Pressure 116/59 127/65 O2 Sat by Pulse 98 Oximetry - General Appearance General appearance: well-developed, well-nourished, appears stated age, other (no distress) EENT: ATNC, PERRL, vision intact, hearing diminished Neck: supple Respiratory: Present: Clear to Ascultation Cardiology: S1S2, no murmurs Gastrointestinal: normoactive bowel sounds, no tenderness, no distended Integumentary: ulcer (b/l heel), chronic venous stasis Neurologic: no focal deficit, no asterixis, alert and oriented x3 Musculoskeletal: other (no edema) Psychiatric: cooperative - Lab 04/25/19 03:28 04/25/19 03:28 Most recent lab results Calcium 8.2 mg/dL (8.4-10.2) L 04/25/19 03:28 Phosphorus 1.30 mg/dL (2.5-4.5) L 04/25/19 03:28 Magnesium 2.00 mg/dL (1.7-2.3) 04/25/19 03:28 52.5 mg/dL (0.1-20.0) H 04/23/19 08:52 59 mmol/L 04/23/19 08:52 Medications & Allergies - Medications Allergies/Adverse Reactions: Allergies No Known Allergies Allergy (Unverified 01/10/15 13:46) Home Medications: Home Medications Medication Instructions Recorded Confirmed Last Taken Type Albuterol Sulfate [Ventolin HFA] 1 puff IH QID PRN 05/11/18 04/22/19 Unknown History Glimepiride [Amaryl] 2 mg PO QDAY 05/11/18 04/22/19 Unknown History Ipratropium/Albuterol Sulfate 1 ampul IH Q6HR 05/11/18 04/22/19 Unknown History [DUONEB *Not for PRN Use*] Amiodarone [Cordarone 200 MG TAB] 200 mg PO BID #60 tablet 05/21/18 04/22/19 Unknown Rx Aspirin [Aspirin BABY CHEW TAB] 81 mg PO QDAY #30 tab.chew 05/21/18 04/22/19 Unknown Rx Carvedilol [Coreg] 6.25 mg PO BID #60 tablet 05/21/18 04/22/19 Unknown Rx Cilostazol [Pletal] 50 mg PO BID #60 tablet 05/21/18 04/22/19 Unknown Rx Furosemide [Lasix TAB] 40 mg PO DAILY #30 tablet 05/21/18 04/22/19 Unknown Rx Lisinopril [Zestril TAB] 5 mg PO QDAY #30 tablet 05/21/18 04/22/19 Unknown Rx Potassium Chloride [K-Dur] 20 meq PO QDAY #30 tablet 05/21/18 04/22/19 Unknown Rx amLODIPine [Norvasc] 10 mg PO DAILY #30 tablet 05/21/18 04/22/19 Unknown Rx Pravastatin [Pravachol] 40 mg PO QHS 04/22/19 04/22/19 Unknown History Active Medications: Generic Name Dose Route Start Last Admin Trade Name Freq PRN Reason Stop Dose Admin Acetaminophen 650 mg 04/21/19 22:11 Tylenol PO Q4H PRN Pain MILD(1-3)/Fever >100.5/BLAKE Aspirin 81 mg 04/23/19 10:00 04/25/19 09:58 Baby Aspirin PO 81 mg QDAY ALICIA Administration Carvedilol 6.25 mg 04/25/19 22:00 Coreg PO BID ALICIA Dextrose 25 gm 04/22/19 08:01 D50w (25gm) Vial IV PRN PRN Hypoglycemia Enoxaparin Sodium 40 mg 04/26/19 10:00 Lovenox SUB-Q QDAY@1000 ALICIA Dextrose/Sodium Chloride 1,000 mls @ 100 mls/hr 04/22/19 12:00 04/25/19 10:17 D5ns IV 100 mls/hr DIRECT ALICIA Administration Sodium Phosphate 45 mmol/ 515 mls @ 84 mls/hr 04/25/19 08:30 04/25/19 11:21 Sodium Chloride IV 04/25/19 14:37 84 mls/hr ONCE ONE Administration Ceftriaxone Sodium 1 gm in 50 mls @ 100 mls/hr 04/26/19 10:00 Rocephin/Ns 1 Gm/50 Ml IV 04/28/19 23:59 Q24HR [facility] Protocol Lisinopril 5 mg 04/25/19 11:00 04/25/19 11:45 Zestril PO 5 mg QDAY ALICIA Administration Ondansetron HCl 4 mg 04/21/19 22:11 Zofran IV Q4H PRN Nausea And Vomiting Potassium Phos/Sodium Phos 2 each 04/25/19 09:31 04/25/19 13:25 Phos-Nak PO 2 each TID ALICIA Administration Pravastatin Sodium 40 mg 04/22/19 22:00 04/24/19 21:17 Pravachol PO 40 mg QHS ALICIA Administration Sodium Chloride 10 ml 04/22/19 10:00 04/25/19 10:31 Sodium Chloride Flush Syringe 10 Ml IV 10 ml BID ALICIA Administration Sodium Chloride 10 ml 04/21/19 22:11 Sodium Chloride Flush Syringe 10 Ml IV PRN PRN LINE FLUSH
--- NOTE | 2019-04-25 18:00 | Progress Note ---
Assessment and Plan Imp: 1. Hypotension 2. Hypoglycemia 3. UTI 4. ? Sepsis 5. SOFYA 6. ICMP Rec: 1. BP stable 2. ABX per ID 3. Stable for d/c from our standpoint; will sign off Plan of care reviewed with patient, he understands/agrees Subjective Date of service: 04/25/19 Principal diagnosis: Acute kidney injury, PAD, Sepsis, hypomagnesemia, hypoglycemia Interval history: No events. No complaints. On RA. Active Medications Acetaminophen (Tylenol) 650 mg PO Q4H PRN PRN Reason: Pain MILD(1-3)/Fever >100.5/BLAKE Aspirin (Baby Aspirin) 81 mg PO QDAY [facility] Last Admin: 04/25/19 09:58 Dose: 81 mg Documented by: Carvedilol (Coreg) 6.25 mg PO BID [facility] Dextrose (D50w (25gm) Vial) 25 gm IV PRN PRN PRN Reason: Hypoglycemia Enoxaparin Sodium (Lovenox) 40 mg SUB-Q QDAY@1000 ALICIA Dextrose/Sodium Chloride (D5ns) 1,000 mls @ 100 mls/hr IV DIRECT [facility] Last Admin: 04/25/19 10:17 Dose: 100 mls/hr Documented by: Ceftriaxone Sodium (Rocephin/Ns 1 Gm/50 Ml) 1 gm in 50 mls @ 100 mls/hr IV Q24HR [facility]; Protocol Stop: 04/28/19 23:59 Lisinopril (Zestril) 5 mg PO QDAY [facility] Last Admin: 04/25/19 11:45 Dose: 5 mg Documented by: Ondansetron HCl (Zofran) 4 mg IV Q4H PRN PRN Reason: Nausea And Vomiting Potassium Phos/Sodium Phos (Phos-Nak) 2 each PO TID [facility] Last Admin: 04/25/19 13:25 Dose: 2 each Documented by: Pravastatin Sodium (Pravachol) 40 mg PO QHS [facility] Last Admin: 04/24/19 21:17 Dose: 40 mg Documented by: Sodium Chloride (Sodium Chloride Flush Syringe 10 Ml) 10 ml IV BID [facility] Last Admin: 04/25/19 10:31 Dose: 10 ml Documented by: Sodium Chloride (Sodium Chloride Flush Syringe 10 Ml) 10 ml IV PRN PRN PRN Reason: LINE FLUSH Objective Vital Signs - 12hr 04/25/19 04/25/19 04/25/19 08:04 10:00 11:22 Temperature 99.0 F 98.0 F Pulse Rate 79 83 Pulse Rate [ 85 From Monitor] Pulse Rate [ 85 Left Dorsalis Pedis] Pulse Rate [ 85 Left Radial] Pulse Rate [ 85 Right Dorsalis Pedis] Pulse Rate [ 85 Right Radial] Respiratory 20 16 18 Rate Respiratory 14 Rate [Chest] Blood Pressure 134/69 116/59 Blood Pressure [Left] O2 Sat by Pulse 99 98 98 Oximetry 04/25/19 04/25/19 04/25/19 11:45 12:06 13:45 Temperature Pulse Rate 80 82 77 Pulse Rate [ From Monitor] Pulse Rate [ Left Dorsalis Pedis] Pulse Rate [ Left Radial] Pulse Rate [ Right Dorsalis Pedis] Pulse Rate [ Right Radial] Respiratory Rate Respiratory Rate [Chest] Blood Pressure 127/65 127/65 Blood Pressure [Left] O2 Sat by Pulse 97 Oximetry 04/25/19 04/25/19 14:43 16:36 Temperature 98.7 F Pulse Rate 55 L Pulse Rate [ From Monitor] Pulse Rate [ Left Dorsalis Pedis] Pulse Rate [ Left Radial] Pulse Rate [ Right Dorsalis Pedis] Pulse Rate [ Right Radial] Respiratory 20 Rate Respiratory Rate [Chest] Blood Pressure Blood Pressure 113/52 [Left] O2 Sat by Pulse 97 97 Oximetry Constitutional: no acute distress Eyes: non-icteric ENT: oropharynx moist Neck: supple Effort: normal Ascultation: Bilateral: clear Cardiovascular: regular rate and rhythm (no mrg) Gastrointestinal: normoactive bowel sounds, non-distended Integumentary: normal Extremities: no cyanosis, no edema, pink and warm Neurologic: normal mental status, non-focal exam Psychiatric: mood appropriate, affect normal CBC and BMP: 04/25/19 03:28 04/25/19 03:28 ABG, PT/INR, D-dimer: PT/INR, D-dimer PT 15.1 Sec. (12.2-14.9) H 04/21/19 19:29 INR 1.22 (0.87-1.13) H 04/21/19 19:29 Abnormal lab findings: Abnormal Labs 04/21/19 04/21/19 04/21/19 19:18 19:29 19:29 WBC 14.6 H RBC 3.26 L Hgb 9.6 L Hct 28.1 L RDW 15.5 H Lymph % (Auto) 6.1 L Lymph # 0.9 L Craig # 0.9 H Seg Neutrophils % 87.3 H Seg Neuts % (Manual) Lymphocytes % (Manual) Seg Neutrophils # 12.7 H Lymphocytes # (Manual) PT INR Sodium 129 L Potassium 3.4 L Chloride 94.2 L Carbon Dioxide 18 L BUN 80 H Creatinine 6.0 H Glucose 65 L POC Glucose 67 L Lactic Acid Calcium Phosphorus Magnesium AST 45 H Total Creatine Kinase CK-MB (CK-2) Troponin T Albumin 3.0 L LDL Cholesterol Direct Free T4 Urine WBC (Auto) Urine Creatinine 04/21/19 04/21/19 04/21/19 19:29 19:29 19:29 WBC RBC Hgb Hct RDW Lymph % (Auto) Lymph # Craig # Seg Neutrophils % Seg Neuts % (Manual) Lymphocytes % (Manual) Seg Neutrophils # Lymphocytes # (Manual) PT 15.1 H INR 1.22 H Sodium Potassium Chloride Carbon Dioxide BUN Creatinine Glucose POC Glucose Lactic Acid Calcium Phosphorus Magnesium AST Total Creatine Kinase 1462 H CK-MB (CK-2) 10.4 H Troponin T 0.126 H* Albumin LDL Cholesterol Direct 45 L Free T4 1.71 H Urine WBC (Auto) Urine Creatinine 04/21/19 04/21/19 04/22/19 20:45 22:25 02:49 WBC RBC Hgb Hct RDW Lymph % (Auto) Lymph # Craig # Seg Neutrophils % Seg Neuts % (Manual) Lymphocytes % (Manual) Seg Neutrophils # Lymphocytes # (Manual) PT INR Sodium Potassium Chloride Carbon Dioxide BUN Creatinine Glucose POC Glucose 56 L 158 H Lactic Acid Calcium Phosphorus Magnesium AST Total Creatine Kinase 1457 H CK-MB (CK-2) 11.2 H Troponin T 0.123 H* Albumin LDL Cholesterol Direct Free T4 Urine WBC (Auto) Urine Creatinine 04/22/19 04/22/19 04/22/19 04:05 04:05 04:05 WBC RBC Hgb 11.0 L Hct 32.0 L RDW 15.8 H Lymph % (Auto) Lymph # Craig # Seg Neutrophils % Seg Neuts % (Manual) 91.0 H Lymphocytes % (Manual) 5.0 L Seg Neutrophils # Lymphocytes # (Manual) 0.2 L PT INR Sodium 132 L Potassium 3.4 L Chloride Carbon Dioxide 18 L BUN 74 H Creatinine 4.8 H Glucose 48 L POC Glucose Lactic Acid Calcium Phosphorus Magnesium AST Total Creatine Kinase 1444 H CK-MB (CK-2) 11.9 H Troponin T 0.097 H Albumin LDL Cholesterol Direct Free T4 Urine WBC (Auto) Urine Creatinine 04/22/19 04/22/19 04/22/19 07:57 08:40 14:24 WBC RBC Hgb Hct RDW Lymph % (Auto) Lymph # Craig # Seg Neutrophils % Seg Neuts % (Manual) Lymphocytes % (Manual) Seg Neutrophils # Lymphocytes # (Manual) PT INR Sodium Potassium Chloride Carbon Dioxide BUN Creatinine Glucose POC Glucose < 40 L 143 H Lactic Acid Calcium Phosphorus Magnesium AST Total Creatine Kinase CK-MB (CK-2) Troponin T Albumin LDL Cholesterol Direct Free T4 Urine WBC (Auto) > 182.0 H Urine Creatinine 04/22/19 04/22/19 04/22/19 16:09 18:37 20:25 WBC RBC Hgb Hct RDW Lymph % (Auto) Lymph # Craig # Seg Neutrophils % Seg Neuts % (Manual) Lymphocytes % (Manual) Seg Neutrophils # Lymphocytes # (Manual) PT INR Sodium Potassium Chloride Carbon Dioxide BUN Creatinine Glucose POC Glucose 177 H 186 H 225 H Lactic Acid Calcium Phosphorus Magnesium AST Total Creatine Kinase CK-MB (CK-2) Troponin T Albumin LDL Cholesterol Direct Free T4 Urine WBC (Auto) Urine Creatinine 04/22/19 04/22/19 04/22/19 20:32 21:27 23:30 WBC RBC Hgb Hct RDW Lymph % (Auto) Lymph # Craig # Seg Neutrophils % Seg Neuts % (Manual) Lymphocytes % (Manual) Seg Neutrophils # Lymphocytes # (Manual) PT INR Sodium Potassium Chloride Carbon Dioxide BUN Creatinine Glucose POC Glucose 140 H 185 H Lactic Acid 2.20 H* Calcium Phosphorus Magnesium AST Total Creatine Kinase CK-MB (CK-2) Troponin T Albumin LDL Cholesterol Direct Free T4 Urine WBC (Auto) Urine Creatinine 04/23/19 04/23/19 04/23/19 05:35 05:35 08:52 WBC 22.9 H RBC 3.32 L Hgb 9.6 L Hct 28.3 L RDW 15.8 H Lymph % (Auto) Lymph # Craig # Seg Neutrophils % Seg Neuts % (Manual) Lymphocytes % (Manual) Seg Neutrophils # Lymphocytes # (Manual) PT INR Sodium Potassium 3.2 L Chloride 111.2 H Carbon Dioxide BUN 48 H Creatinine 2.0 H D Glucose 102 H POC Glucose Lactic Acid Calcium 8.3 L Phosphorus 2.20 L D Magnesium AST Total Creatine Kinase 456 H CK-MB (CK-2) Troponin T 0.042 H D Albumin LDL Cholesterol Direct Free T4 Urine WBC (Auto) Urine Creatinine 52.5 H 04/23/19 04/23/19 04/23/19 14:24 16:49 18:14 WBC RBC Hgb Hct RDW Lymph % (Auto) Lymph # Craig # Seg Neutrophils % Seg Neuts % (Manual) Lymphocytes % (Manual) Seg Neutrophils # Lymphocytes # (Manual) PT INR Sodium Potassium Chloride Carbon Dioxide BUN Creatinine Glucose POC Glucose 164 H 138 H 128 H Lactic Acid Calcium Phosphorus Magnesium AST Total Creatine Kinase CK-MB (CK-2) Troponin T Albumin LDL Cholesterol Direct Free T4 Urine WBC (Auto) Urine Creatinine 04/23/19 04/23/19 04/24/19 20:09 21:35 00:05 WBC RBC Hgb Hct RDW Lymph % (Auto) Lymph # Craig # Seg Neutrophils % Seg Neuts % (Manual) Lymphocytes % (Manual) Seg Neutrophils # Lymphocytes # (Manual) PT INR Sodium Potassium Chloride Carbon Dioxide BUN Creatinine Glucose POC Glucose 197 H 265 H 232 H Lactic Acid Calcium Phosphorus Magnesium AST Total Creatine Kinase CK-MB (CK-2) Troponin T Albumin LDL Cholesterol Direct Free T4 Urine WBC (Auto) Urine Creatinine 04/24/19 04/24/19 04/24/19 01:51 04:26 05:35 WBC RBC Hgb Hct RDW Lymph % (Auto) Lymph # Craig # Seg Neutrophils % Seg Neuts % (Manual) Lymphocytes % (Manual) Seg Neutrophils # Lymphocytes # (Manual) PT INR Sodium Potassium Chloride Carbon Dioxide BUN Creatinine Glucose POC Glucose 190 H 193 H 180 H Lactic Acid Calcium Phosphorus Magnesium AST Total Creatine Kinase CK-MB (CK-2) Troponin T Albumin LDL Cholesterol Direct Free T4 Urine WBC (Auto) Urine Creatinine 04/24/19 04/24/19 04/24/19 05:45 05:45 08:59 WBC 12.7 H RBC 3.32 L Hgb 9.5 L Hct 28.2 L RDW 16.3 H Lymph % (Auto) Lymph # Craig # Seg Neutrophils % Seg Neuts % (Manual) Lymphocytes % (Manual) Seg Neutrophils # Lymphocytes # (Manual) PT INR Sodium Potassium 3.5 L Chloride 107.9 H Carbon Dioxide BUN Creatinine Glucose 191 H POC Glucose 158 H Lactic Acid Calcium 8.2 L Phosphorus 1.30 L D Magnesium 1.50 L AST Total Creatine Kinase 217 H CK-MB (CK-2) Troponin T Albumin LDL Cholesterol Direct Free T4 Urine WBC (Auto) Urine Creatinine 04/24/19 04/24/19 04/25/19 12:11 21:05 03:28 WBC RBC Hgb Hct RDW Lymph % (Auto) Lymph # Craig # Seg Neutrophils % Seg Neuts % (Manual) Lymphocytes % (Manual) Seg Neutrophils # Lymphocytes # (Manual) PT INR Sodium Potassium Chloride Carbon Dioxide BUN Creatinine 0.7 L Glucose 197 H POC Glucose 189 H 172 H Lactic Acid Calcium 8.2 L Phosphorus 1.30 L Magnesium AST Total Creatine Kinase CK-MB (CK-2) Troponin T Albumin LDL Cholesterol Direct Free T4 Urine WBC (Auto) Urine Creatinine 04/25/19 04/25/19 04/25/19 03:28 07:48 11:27 WBC RBC 3.36 L Hgb 9.8 L Hct 28.7 L RDW 16.1 H Lymph % (Auto) Lymph # Craig # Seg Neutrophils % Seg Neuts % (Manual) Lymphocytes % (Manual) Seg Neutrophils # Lymphocytes # (Manual) PT INR Sodium Potassium Chloride Carbon Dioxide BUN Creatinine Glucose POC Glucose 159 H 178 H Lactic Acid Calcium Phosphorus Magnesium AST Total Creatine Kinase CK-MB (CK-2) Troponin T Albumin LDL Cholesterol Direct Free T4 Urine WBC (Auto) Urine Creatinine 04/25/19 16:37 WBC RBC Hgb Hct RDW Lymph % (Auto) Lymph # Craig # Seg Neutrophils % Seg Neuts % (Manual) Lymphocytes % (Manual) Seg Neutrophils # Lymphocytes # (Manual) PT INR Sodium Potassium Chloride Carbon Dioxide BUN Creatinine Glucose POC Glucose 165 H Lactic Acid Calcium Phosphorus Magnesium AST Total Creatine Kinase CK-MB (CK-2) Troponin T Albumin LDL Cholesterol Direct Free T4 Urine WBC (Auto) Urine Creatinine Chest x-ray: report reviewed, image reviewed (clear lungs)
[2019-04-25] MEDS: PRAVACHOL PO SCH (22:23)
[2019-04-25] MEDS: COREG PO SCH (22:23)
[2019-04-26] MEDS: D5NS 1,000 ML IV SCH (02:18)
[2019-04-26 06:56] LABS: Basophils # (Auto) 0.1 K/mm3 (0.0-0.1); Basophils % (Auto) 0.7 % (0.0-1.8); Eosinophils # (Auto) 0.1 K/mm3 (0.0-0.4); Eosinophils % (Auto) 1.9 % (0.0-4.3); Hematocrit 27.9 % (35.5-45.6); Hemoglobin 9.6 gm/dl (11.8-15.2); Lymphocytes # (Auto) 1.4 K/mm3 (1.2-5.4); Mean Corpuscular HGB Conc 34 % (32-34); Mean Corpuscular Volume 85 fl (84-94); Monocytes # (Auto) 0.9 K/mm3 (0.0-0.8); Monocytes % (Auto) 12.1 % (0.0-7.3); Platelet Count 219 K/mm3 (140-440); Red Blood Count 3.27 M/mm3 (3.65-5.03); Red Cell Distribution Width 15.8 % (13.2-15.2)
[2019-04-26 07:16] LABS: Alanine Aminotransferase 13 units/L (7-56); Albumin 2.2 g/dL (3.9-5); BUN/Creatinine Ratio 15; Blood Urea Nitrogen 9 mg/dL (9-20); Calcium 8.2 mg/dL (8.4-10.2); Hemolysis Index 5
--- NOTE | 2019-04-26 07:31 | Progress Note ---
Assessment and Plan 1. Acute kidney injury: Vasomotor SOFYA in the setting of hypotension. Renal US was negative for hydro. Renal function is better. Monitor renal function. Renal prognosis is guarded. Avoid nephrotoxic agents. Meds dosage based on GFR. 2. FEN: Hypokalemia, K level is better. Anion gap MA, improved. Replete Phos. Monitor lytes. 3. Hypotension / shock: Off pressors. 4. Suspected sepsis: UTI. 5. Hypoglycemia: Improved. 6. H/o CHF. 7. Anemia: Monitor H/H. Subjective Date of service: 04/26/19 Principal diagnosis: Acute kidney injury, PAD, Sepsis, hypomagnesemia, hypoglycemia Interval history: Patient was seen and examined at the bedside. Doing ok. Objective - Vital Signs Vital signs: Vital Signs - 12hr 04/25/19 04/25/19 04/25/19 19:43 22:00 23:47 Temperature 99.5 F 99.0 F Pulse Rate 87 83 Respiratory 20 18 20 Rate Blood Pressure 133/59 135/60 O2 Sat by Pulse 95 96 Oximetry 04/26/19 04/26/19 04/26/19 03:24 04:04 04:22 Temperature 98.7 F Pulse Rate 46 L 60 85 Respiratory 20 Rate Blood Pressure 126/44 O2 Sat by Pulse 94 Oximetry - General Appearance General appearance: well-developed, well-nourished, appears stated age, other (no distress) EENT: ATNC, PERRL Neck: supple Respiratory: Present: Clear to Ascultation Cardiology: regular, S1S2, no murmurs Gastrointestinal: normoactive bowel sounds, no tenderness, no distended Integumentary: warm and dry, chronic venous stasis Neurologic: no focal deficit, no asterixis, alert and oriented x3 Musculoskeletal: other (no edema) Psychiatric: cooperative - Lab 04/26/19 06:06 04/26/19 06:06 Most recent lab results Calcium 8.2 mg/dL (8.4-10.2) L 04/26/19 06:06 Phosphorus 2.10 mg/dL (2.5-4.5) L D 04/26/19 06:06 Magnesium 1.70 mg/dL (1.7-2.3) 04/26/19 06:06 52.5 mg/dL (0.1-20.0) H 04/23/19 08:52 59 mmol/L 04/23/19 08:52 Medications & Allergies - Medications Allergies/Adverse Reactions: Allergies No Known Allergies Allergy (Unverified 01/10/15 13:46) Home Medications: Home Medications Medication Instructions Recorded Confirmed Last Taken Type Albuterol Sulfate [Ventolin HFA] 1 puff IH QID PRN 05/11/18 04/22/19 Unknown History Glimepiride [Amaryl] 2 mg PO QDAY 05/11/18 04/22/19 Unknown History Ipratropium/Albuterol Sulfate 1 ampul IH Q6HR 05/11/18 04/22/19 Unknown History [DUONEB *Not for PRN Use*] Amiodarone [Cordarone 200 MG TAB] 200 mg PO BID #60 tablet 05/21/18 04/22/19 Unknown Rx Aspirin [Aspirin BABY CHEW TAB] 81 mg PO QDAY #30 tab.chew 05/21/18 04/22/19 Unknown Rx Carvedilol [Coreg] 6.25 mg PO BID #60 tablet 05/21/18 04/22/19 Unknown Rx Cilostazol [Pletal] 50 mg PO BID #60 tablet 05/21/18 04/22/19 Unknown Rx Furosemide [Lasix TAB] 40 mg PO DAILY #30 tablet 05/21/18 04/22/19 Unknown Rx Lisinopril [Zestril TAB] 5 mg PO QDAY #30 tablet 05/21/18 04/22/19 Unknown Rx Potassium Chloride [K-Dur] 20 meq PO QDAY #30 tablet 05/21/18 04/22/19 Unknown Rx amLODIPine [Norvasc] 10 mg PO DAILY #30 tablet 05/21/18 04/22/19 Unknown Rx Pravastatin [Pravachol] 40 mg PO QHS 04/22/19 04/22/19 Unknown History Active Medications: Generic Name Dose Route Start Last Admin Trade Name Freq PRN Reason Stop Dose Admin Acetaminophen 650 mg 04/21/19 22:11 Tylenol PO Q4H PRN Pain MILD(1-3)/Fever >100.5/BLAKE Aspirin 81 mg 04/23/19 10:00 04/25/19 09:58 Baby Aspirin PO 81 mg QDAY ALICIA Administration Carvedilol 6.25 mg 04/25/19 22:00 04/25/19 22:23 Coreg PO 6.25 mg BID ALICIA Administration Dextrose 25 gm 04/22/19 08:01 D50w (25gm) Vial IV PRN PRN Hypoglycemia Enoxaparin Sodium 40 mg 04/26/19 10:00 Lovenox SUB-Q QDAY@1000 ALICIA Dextrose/Sodium Chloride 1,000 mls @ 100 mls/hr 04/22/19 12:00 04/26/19 02:18 D5ns IV 100 mls/hr DIRECT ALICIA Administration Ceftriaxone Sodium 1 gm in 50 mls @ 100 mls/hr 04/26/19 10:00 Rocephin/Ns 1 Gm/50 Ml IV 04/28/19 23:59 Q24HR [facility] Protocol Lisinopril 5 mg 04/25/19 11:00 04/25/19 11:45 Zestril PO 5 mg QDAY ALICIA Administration Ondansetron HCl 4 mg 04/21/19 22:11 Zofran IV Q4H PRN Nausea And Vomiting Potassium Phos/Sodium Phos 2 each 04/25/19 09:31 04/25/19 22:23 Phos-Nak PO 2 each TID ALICIA Administration Pravastatin Sodium 40 mg 04/22/19 22:00 04/25/19 22:23 Pravachol PO 40 mg QHS ALICIA Administration Sodium Chloride 10 ml 04/22/19 10:00 04/25/19 22:23 Sodium Chloride Flush Syringe 10 Ml IV Not Given BID ALICIA Sodium Chloride 10 ml 04/21/19 22:11 Sodium Chloride Flush Syringe 10 Ml IV PRN PRN LINE FLUSH
[2019-04-26] MEDS: PHOS-NAK PO SCH (08:07)
--- NOTE | 2019-04-26 09:01 | Progress Note ---
Assessment and Plan 84-year-old male with a history of CHF, coronary artery disease, diabetes, hypertension, hyperlipidemia, PVD was brought to the emergency room by family because of generalized weakness. His blood sugar and blood pressure were low at home. He has poor appetite over the last 2 months, only at breakfast today, took his medications. He needs assistance to ambulate. Found to have sepsis from UTI Acute kidney injury Hypotension, corrected liley from septic shock Abnormal cardiac enzymes hypoglycemia secondary to poor appetite and Glimepiride Rhabdomyolysis CHF, stable Coronary Artery disease Hyperlipidemia Peripheral vascular disease UTI to r/o sepsis Hypokalemia Hypomagnesemia - corrected Hypophosphatemia -replete further Plan Continue D5NS Replace, Phos and recheck in am Nephrology following monitor blood sugar, encourage oral intake, placed on Renal diet for now Hold all antihypertensives and diabetic medications Ceftriaxone for UTI and sepsis DVT prophylaxis with Lovenox. Off dopamine Code status: Pt is full code. Disposition: Per hospital course Subjective Date of service: 04/26/19 Principal diagnosis: Acute kidney injury, PAD, Sepsis, hypomagnesemia, hypoglycemia Interval history: Pt seen and examined. No fever, chest pain or shortness of breath. Objective - Exam Narrative Exam: Constitutional: Well-nourished well-developed. In no distress Head: Normocephalic atraumatic Eyes: Pupils are equal round and reactive to light Nose: No enlarged turbinates, no septal deviation. Mouth: Moist mucous membranes. Neck: Supple no thyromegaly. No bruit. No JVD Heart: Regular rate and rhythm, S1-S2 normal. No rubs murmurs or gallop Lungs: Clear to auscultation bilaterally. no rales or rhonchi Abdomen: Soft, nontender. Bowel sound are present. Extremities: 2+ edema, no cyanosis, no clubbing. Neuro: Alert oriented Oriented x3. No focal sensory or motor deficit. Skin: No rashes or hyperpigmented spots Musculoskeletal system: No joint pain or swelling Hematological: No petechia or subcutanous hemorrhages. Immunological: No multiple septic spots on the skin Lymphatic: No generalized lymphadenopathy Psychiatry: Euthymic. Calm. - Constitutional Vitals: Vital Signs - 12hr 04/25/19 04/25/19 04/26/19 22:00 23:47 03:24 Temperature 99.0 F 98.7 F Pulse Rate 83 46 L Respiratory 18 20 20 Rate Blood Pressure 135/60 126/44 O2 Sat by Pulse 96 94 Oximetry 04/26/19 04/26/19 04/26/19 04:04 04:22 07:34 Temperature 98.7 F Pulse Rate 60 85 45 L Respiratory 16 Rate Blood Pressure 123/47 O2 Sat by Pulse 95 Oximetry - Labs CBC & Chem 7: 04/26/19 06:06 04/26/19 06:06 Labs: Abnormal lab results 04/25/19 04/25/19 04/25/19 Range/Units 11:27 16:37 20:55 RBC (3.65-5.03) M/mm3 Hgb (11.8-15.2) gm/dl Hct (35.5-45.6) % RDW (13.2-15.2) % Gem % (Auto) (0.0-7.3) % Gem # (0.0-0.8) K/mm3 Creatinine (0.8-1.5) mg/dL Glucose (75-100) mg/dL POC Glucose 178 H 165 H 231 H (70-105) Calcium (8.4-10.2) mg/dL Phosphorus (2.5-4.5) mg/dL Total Protein (6.3-8.2) g/dL Albumin (3.9-5) g/dL 04/26/19 04/26/19 04/26/19 Range/Units 06:06 06:06 07:42 RBC 3.27 L (3.65-5.03) M/mm3 Hgb 9.6 L (11.8-15.2) gm/dl Hct 27.9 L (35.5-45.6) % RDW 15.8 H (13.2-15.2) % Gem % (Auto) 12.1 H (0.0-7.3) % Gem # 0.9 H (0.0-0.8) K/mm3 Creatinine 0.6 L (0.8-1.5) mg/dL Glucose 153 H (75-100) mg/dL POC Glucose 168 H (70-105) Calcium 8.2 L (8.4-10.2) mg/dL Phosphorus 2.10 L D (2.5-4.5) mg/dL Total Protein 6.0 L (6.3-8.2) g/dL Albumin 2.2 L (3.9-5) g/dL
[2019-04-26] MEDS: BABY ASPIRIN PO SCH (09:23)
[2019-04-26] MEDS: SODIUM CHLORIDE FLUSH SYRINGE 10 ML IV SCH ×2 (09:24→22:23)
[2019-04-26] MEDS: ROCEPHIN/NS 1 GM/50 ML 1 GM/50 ML BAG IV SCH (09:25)
[2019-04-26] MEDS: LOVENOX SUB-Q SCH (09:25)
[2019-04-26] MEDS: COREG PO SCH ×2 (09:34→22:21)
[2019-04-26] MEDS: ZESTRIL PO SCH (09:37)
[2019-04-26] MEDS ORDERED: CORDARONE PO SCH (10:00)
[2019-04-26] MEDS ORDERED: SODIUM PHOSPHATE 15 MMOL in NACL 0.9% 250ML 250 ML IV ONE (10:00)
--- NOTE | 2019-04-26 10:10 | Progress Note ---
Assessment and Plan Cultures: 04/21/19 Blood: No growth to date 04/22/19 Urine 10-100K of >2 organisms. A/P: 84-year-old male with a past medical history of CHF, coronary artery disease, diabetes, hypertension, hyperlipidemia, PVD that was brought to the ED on 04/21/19 with complaints of generalized weakness. The family stated that his blood sugar and blood pressure were low at home.and that he has had a poor appetite over the past 2 months. Admitted with: 1. Leukocytosis on admission: Resolved. etiology most likely UTI. U/A consistent with UTI. Urine culture 10-100K of >2 organisms. No fever. Blood cultures show no growth to date. CXR show no consolidation. Currently being treated with Ceftriaxone. 2. UTI: , UA with pyuria, WBC >182, Large LE. Urine culture Urine culture 10- 100K of >2 organisms. Renal US unremarkable. 3. SOFYA: nephrology following.. Keep antibiotics renally dosed 4.. Rhabdomyolysis 5.. PVD 6. Type 2 diabetes ; uncontrolled Recommendations: -follow-up blood cultures - Can be discharged from ID standpoint on Cefdinir 300mg PO BID for total 7 days X 2 more days ending 04-28-19 -Recommend urology evaluation [facility]: [phone] O:[phone] Subjective Date of service: 04/26/19 Principal diagnosis: Acute kidney injury, PAD, Sepsis, hypomagnesemia, hypoglycemia Interval history: Patient seen and examined. Reports no acute distress. No fevers. Objective - Exam Narrative Exam: Constitutional: Alert, cooperative. No acute distress Head, Ears, Nose: Normocephalic, atraumatic. External ears, nose normal Eyes: Conjunctivae/corneas clear. No icterus. No ptosis. Neck: Supple, no meningeal signs Oral: dentition poor., no thrush. Cardiovascular: S1, S2 normal. Respiratory: Good air entry, clear to auscultation bilaterally GI: Soft, non-tender; bowel sounds normal. No peritoneal signs Musculoskeletal: No pedal edema, no cyanosis. Skin: No rash or abscess. Hem/Lymphatic: No palpable cervical or supraclavicular nodes. No lymphangitis Psych: Mood ok. Affect normal Neurological: Awake, alert, oriented. - Constitutional Vitals: Vital Signs Temp Pulse Resp BP Pulse Ox 98.7 F 55 L 16 123/59 95 04/26/19 07:34 04/26/19 09:37 04/26/19 07:34 04/26/19 09:37 04/26/19 07:34 Temperature -Last 24 Hours Temperature 98.7 F Temperature 98.7 F Temperature 99.0 F Temperature 99.5 F Temperature 98.7 F Temperature 98.7 F Temperature 98.0 F - Labs CBC & Chem 7: 04/26/19 06:06 04/26/19 06:06 Labs: Abnormal lab results 04/25/19 04/25/19 04/25/19 Range/Units 11:27 16:37 20:55 RBC (3.65-5.03) M/mm3 Hgb (11.8-15.2) gm/dl Hct (35.5-45.6) % RDW (13.2-15.2) % [place] % (Auto) (0.0-7.3) % [place] # (0.0-0.8) K/mm3 Creatinine (0.8-1.5) mg/dL Glucose (75-100) mg/dL POC Glucose 178 H 165 H 231 H (70-105) Calcium (8.4-10.2) mg/dL Phosphorus (2.5-4.5) mg/dL Total Protein (6.3-8.2) g/dL Albumin (3.9-5) g/dL 04/26/19 04/26/19 04/26/19 Range/Units 06:06 06:06 07:42 RBC 3.27 L (3.65-5.03) M/mm3 Hgb 9.6 L (11.8-15.2) gm/dl Hct 27.9 L (35.5-45.6) % RDW 15.8 H (13.2-15.2) % [place] % (Auto) 12.1 H (0.0-7.3) % [place] # 0.9 H (0.0-0.8) K/mm3 Creatinine 0.6 L (0.8-1.5) mg/dL Glucose 153 H (75-100) mg/dL POC Glucose 168 H (70-105) Calcium 8.2 L (8.4-10.2) mg/dL Phosphorus 2.10 L D (2.5-4.5) mg/dL Total Protein 6.0 L (6.3-8.2) g/dL Albumin 2.2 L (3.9-5) g/dL
[2019-04-26] MEDS: PLETAL PO SCH ×2 (10:47→22:21)
--- NOTE | 2019-04-26 12:51 | XRay Report ---
CHEST 2 VIEWS INDICATION: Follow-up CHF. Tautness of breath COMPARISON: 04/21/2019 FINDINGS: Support devices: Single lead pacemaker device is unchanged Heart: Borderline to mild cardiomegaly is stable Lungs/pleura: The lungs are hyperinflated consistent with COPD. No evidence for pneumonia, pleural ef fusion or pneumothorax. Chronic interstitial changes are noted. Additional findings: None. IMPRESSION: Borderline to mild cardiomegaly. COPD. No acute process is noted. Signer Name: Félix Powell Jr, MD Signed: 04/26/2019 12:46 PM Workstation Name: [id number]
[2019-04-26] MEDS: DUONEB *Not for PRN Use IH SCH ×3 (14:31→19:13)
[2019-04-26] MEDS: HumaLOG SUB-Q SCH ×2 (16:32→22:22)
[2019-04-26] MEDS: PRAVACHOL PO SCH (22:23)
[2019-04-27] MEDS: DUONEB *Not for PRN Use IH SCH ×5 (01:47→19:11)
[2019-04-27 06:40] LABS: Basophils % (Auto) 0.6 % (0.0-1.8); Eosinophils # (Auto) 0.1 K/mm3 (0.0-0.4); Hematocrit 26.3 % (35.5-45.6); Hemoglobin 9.1 gm/dl (11.8-15.2); Lymphocytes # (Auto) 1.3 K/mm3 (1.2-5.4); Lymphocytes % (Auto) 18.3 % (13.4-35.0); Mean Corpuscular HGB Conc 35 % (32-34); Mean Corpuscular Volume 85 fl (84-94); Monocytes # (Auto) 0.8 K/mm3 (0.0-0.8); Monocytes % (Auto) 11.3 % (0.0-7.3); Platelet Count 224 K/mm3 (140-440); Red Blood Count 3.08 M/mm3 (3.65-5.03); Red Cell Distribution Width 15.5 % (13.2-15.2)
[2019-04-27 07:03] LABS: Alanine Aminotransferase 11 units/L (7-56); Albumin 2.3 g/dL (3.9-5); BUN/Creatinine Ratio 13; Blood Urea Nitrogen 9 mg/dL (9-20); Calcium 8.2 mg/dL (8.4-10.2); Hemolysis Index 3
[2019-04-27] MEDS ORDERED: KPHOS 40 MMOL in NACL 0.9% 500 ML 500 ML IV ONE (08:30)
[2019-04-27] MEDS: HumaLOG SUB-Q SCH ×4 (09:04→21:10)
--- NOTE | 2019-04-27 09:11 | Progress Note ---
Assessment and Plan 1. Acute kidney injury: Vasomotor SOFYA in the setting of hypotension. Renal US was negative for hydro. Renal function is better. Monitor renal function. Avoid nephrotoxic agents. Meds dosage based on GFR. 2. FEN: Hypokalemia, replete K. Anion gap MA, improved. Replete Mg and Phos. Monitor lytes. 3. Hypotension / shock: Off pressors. 4. Suspected sepsis: UTI. 5. Hypoglycemia: Improved. 6. H/o CHF. 7. Anemia: Monitor H/H. Subjective Date of service: 04/27/19 Principal diagnosis: Acute kidney injury, PAD, Sepsis, hypomagnesemia, hypoglycemia Interval history: Patient was seen and examined at the bedside. Doing ok. Objective - Vital Signs Vital signs: Vital Signs - 12hr 04/26/19 04/26/19 04/27/19 22:21 23:29 01:48 Temperature 99.2 F Pulse Rate 95 H 78 Pulse Rate [ 88 Anterior Bilateral Throughout] Respiratory 20 Rate Respiratory 18 Rate [Anterior Bilateral Throughout] Blood Pressure 119/48 106/58 O2 Sat by Pulse 97 Oximetry 04/27/19 04/27/19 04/27/19 02:04 03:46 08:44 Temperature 98.5 F 98.1 F Pulse Rate 42 L 91 H Pulse Rate [ 92 H Anterior Bilateral Throughout] Respiratory 20 16 Rate Respiratory 18 Rate [Anterior Bilateral Throughout] Blood Pressure 110/39 129/65 O2 Sat by Pulse 93 97 Oximetry - General Appearance General appearance: well-developed, well-nourished, appears stated age, other (no distress) EENT: ATNC, PERRL, vision intact, hearing diminished Neck: supple Respiratory: Present: Clear to Ascultation Cardiology: regular, S1S2, no murmurs Gastrointestinal: normoactive bowel sounds, no tenderness, no distended Integumentary: ulcer (heel), chronic venous stasis Neurologic: no focal deficit, no asterixis, alert and oriented x3 Musculoskeletal: other (no edema) Psychiatric: cooperative - Lab 04/27/19 05:11 04/27/19 05:11 Most recent lab results Calcium 8.2 mg/dL (8.4-10.2) L 04/27/19 05:11 Phosphorus 2.40 mg/dL (2.5-4.5) L 04/27/19 05:11 Magnesium 1.60 mg/dL (1.7-2.3) L 04/27/19 05:11 52.5 mg/dL (0.1-20.0) H 04/23/19 08:52 59 mmol/L 04/23/19 08:52 Medications & Allergies - Medications Allergies/Adverse Reactions: Allergies No Known Allergies Allergy (Unverified 01/10/15 13:46) Home Medications: Home Medications Medication Instructions Recorded Confirmed Last Taken Type Albuterol Sulfate [Ventolin HFA] 1 puff IH QID PRN 05/11/18 04/22/19 Unknown History Glimepiride [Amaryl] 2 mg PO QDAY 05/11/18 04/22/19 Unknown History Ipratropium/Albuterol Sulfate 1 ampul IH Q6HR 05/11/18 04/22/19 Unknown History [DUONEB *Not for PRN Use*] Amiodarone [Cordarone 200 MG TAB] 200 mg PO BID #60 tablet 05/21/18 04/22/19 Unknown Rx Aspirin [Aspirin BABY CHEW TAB] 81 mg PO QDAY #30 tab.chew 05/21/18 04/22/19 Unknown Rx Carvedilol [Coreg] 6.25 mg PO BID #60 tablet 05/21/18 04/22/19 Unknown Rx Cilostazol [Pletal] 50 mg PO BID #60 tablet 05/21/18 04/22/19 Unknown Rx Furosemide [Lasix TAB] 40 mg PO DAILY #30 tablet 05/21/18 04/22/19 Unknown Rx Lisinopril [Zestril TAB] 5 mg PO QDAY #30 tablet 05/21/18 04/22/19 Unknown Rx Potassium Chloride [K-Dur] 20 meq PO QDAY #30 tablet 05/21/18 04/22/19 Unknown Rx amLODIPine [Norvasc] 10 mg PO DAILY #30 tablet 05/21/18 04/22/19 Unknown Rx Pravastatin [Pravachol] 40 mg PO QHS 04/22/19 04/22/19 Unknown History Active Medications: Generic Name Dose Route Start Last Admin Trade Name Freq PRN Reason Stop Dose Admin Acetaminophen 650 mg 04/21/19 22:11 Tylenol PO Q4H PRN Pain MILD(1-3)/Fever >100.5/BLAKE Albuterol/Ipratropium 1 ampul 04/26/19 12:00 04/27/19 01:47 Duoneb *Not For Prn Use* IH 1 ampul Q6HR ALICIA Administration Aspirin 81 mg 04/23/19 10:00 04/26/19 09:23 Baby Aspirin PO 81 mg QDAY ALICIA Administration Carvedilol 6.25 mg 04/25/19 22:00 04/26/19 22:21 Coreg PO 6.25 mg BID ALICIA Administration Cilostazol 50 mg 04/26/19 10:00 04/26/19 22:21 Pletal PO 50 mg BID ALICIA Administration Dextrose 25 gm 04/22/19 08:01 D50w (25gm) Vial IV PRN PRN Hypoglycemia Enoxaparin Sodium 40 mg 04/26/19 10:00 04/26/19 09:25 Lovenox SUB-Q 40 mg QDAY@1000 ALICIA Administration Ceftriaxone Sodium 1 gm in 50 mls @ 100 mls/hr 04/26/19 10:00 04/26/19 09:25 Rocephin/Ns 1 Gm/50 Ml IV 04/28/19 23:59 100 mls/hr Q24HR ALICIA Administration Protocol Potassium Phosphate 40 mmol/ 513.3333 mls @ 83 mls/hr 04/27/19 08:30 Sodium Chloride IV 04/27/19 14:41 ONCE ONE Insulin Human Lispro 0 unit 04/26/19 16:30 04/27/19 09:04 Humalog SUB-Q Not Given ACHS ALICIA Protocol Lisinopril 5 mg 04/25/19 11:00 04/26/19 09:37 Zestril PO 5 mg QDAY ALICIA Administration Ondansetron HCl 4 mg 04/21/19 22:11 Zofran IV Q4H PRN Nausea And Vomiting Pravastatin Sodium 40 mg 04/22/19 22:00 04/26/19 22:23 Pravachol PO 40 mg QHS ALICIA Administration Sodium Chloride 10 ml 04/22/19 10:00 04/26/19 22:23 Sodium Chloride Flush Syringe 10 Ml IV 10 ml BID ALICIA Administration Sodium Chloride 10 ml 04/21/19 22:11 Sodium Chloride Flush Syringe 10 Ml IV PRN PRN LINE FLUSH
[2019-04-27] MEDS: TYLENOL PO PRN ×2 (12:40→21:13)
[2019-04-27] MEDS: PLETAL PO SCH ×2 (12:40→21:08)
[2019-04-27] MEDS: COREG PO SCH ×2 (12:41→21:08)
[2019-04-27] MEDS: BABY ASPIRIN PO SCH (12:41)
[2019-04-27] MEDS: LOVENOX SUB-Q SCH (12:41)
[2019-04-27] MEDS: SODIUM CHLORIDE FLUSH SYRINGE 10 ML IV SCH ×2 (12:42→21:11)
[2019-04-27] MEDS: ZESTRIL PO SCH (12:42)
[2019-04-27] MEDS: ROCEPHIN/NS 1 GM/50 ML 1 GM/50 ML BAG IV SCH (12:43)
--- NOTE | 2019-04-27 15:34 | Progress Note ---
Assessment and Plan - Patient Problems (1) Acute on chronic renal failure Current Visit: Yes Status: Acute (2) Acute renal failure Current Visit: Yes Status: Acute (3) Hypoglycemia Current Visit: Yes Status: Acute (4) CAD (coronary artery disease) Current Visit: Yes Status: Chronic Subjective Principal diagnosis: Acute kidney injury, PAD, Sepsis, hypomagnesemia, hypoglycemia Interval history: awake and responsive Objective Vital Signs - 12hr 04/27/19 04/27/19 04/27/19 03:46 08:44 09:12 Temperature 98.5 F 98.1 F Pulse Rate 42 L 91 H Pulse Rate [ 85 Anterior Bilateral Throughout] Respiratory 20 16 Rate Respiratory 18 Rate [Anterior Bilateral Throughout] Blood Pressure 110/39 129/65 O2 Sat by Pulse 93 97 96 Oximetry 04/27/19 04/27/19 04/27/19 09:27 12:41 14:59 Temperature Pulse Rate 83 Pulse Rate [ 82 67 Anterior Bilateral Throughout] Respiratory Rate Respiratory 18 18 Rate [Anterior Bilateral Throughout] Blood Pressure O2 Sat by Pulse Oximetry 04/27/19 15:19 Temperature Pulse Rate Pulse Rate [ 81 Anterior Bilateral Throughout] Respiratory Rate Respiratory 18 Rate [Anterior Bilateral Throughout] Blood Pressure O2 Sat by Pulse Oximetry Constitutional: no acute distress Eyes: non-icteric ENT: oropharynx moist Neck: supple Effort: normal Ascultation: Bilateral: clear Cardiovascular: regular rate and rhythm (no mrg) Gastrointestinal: normoactive bowel sounds, non-distended Integumentary: normal Extremities: no cyanosis, no edema, pink and warm Neurologic: normal mental status, non-focal exam Psychiatric: mood appropriate, affect normal CBC and BMP: 04/27/19 05:11 04/27/19 05:11 ABG, PT/INR, D-dimer: PT/INR, D-dimer PT 15.1 Sec. (12.2-14.9) H 04/21/19 19:29 INR 1.22 (0.87-1.13) H 04/21/19 19:29 Abnormal lab findings: Abnormal Labs 04/21/19 04/21/19 04/21/19 19:18 19:29 19:29 WBC 14.6 H RBC 3.26 L Hgb 9.6 L Hct 28.1 L MCHC RDW 15.5 H Lymph % (Auto) 6.1 L Centre % (Auto) Lymph # 0.9 L Centre # 0.9 H Seg Neutrophils % 87.3 H Seg Neuts % (Manual) Lymphocytes % (Manual) Seg Neutrophils # 12.7 H Lymphocytes # (Manual) PT INR Sodium 129 L Potassium 3.4 L Chloride 94.2 L Carbon Dioxide 18 L BUN 80 H Creatinine 6.0 H Glucose 65 L POC Glucose 67 L Lactic Acid Calcium Phosphorus Magnesium AST 45 H Total Creatine Kinase CK-MB (CK-2) Troponin T Total Protein Albumin 3.0 L LDL Cholesterol Direct Free T4 Urine WBC (Auto) Urine Creatinine 04/21/19 04/21/19 04/21/19 19:29 19:29 19:29 WBC RBC Hgb Hct MCHC RDW Lymph % (Auto) Centre % (Auto) Lymph # Centre # Seg Neutrophils % Seg Neuts % (Manual) Lymphocytes % (Manual) Seg Neutrophils # Lymphocytes # (Manual) PT 15.1 H INR 1.22 H Sodium Potassium Chloride Carbon Dioxide BUN Creatinine Glucose POC Glucose Lactic Acid Calcium Phosphorus Magnesium AST Total Creatine Kinase 1462 H CK-MB (CK-2) 10.4 H Troponin T 0.126 H* Total Protein Albumin LDL Cholesterol Direct 45 L Free T4 1.71 H Urine WBC (Auto) Urine Creatinine 04/21/19 04/21/19 04/22/19 20:45 22:25 02:49 WBC RBC Hgb Hct MCHC RDW Lymph % (Auto) Centre % (Auto) Lymph # Centre # Seg Neutrophils % Seg Neuts % (Manual) Lymphocytes % (Manual) Seg Neutrophils # Lymphocytes # (Manual) PT INR Sodium Potassium Chloride Carbon Dioxide BUN Creatinine Glucose POC Glucose 56 L 158 H Lactic Acid Calcium Phosphorus Magnesium AST Total Creatine Kinase 1457 H CK-MB (CK-2) 11.2 H Troponin T 0.123 H* Total Protein Albumin LDL Cholesterol Direct Free T4 Urine WBC (Auto) Urine Creatinine 04/22/19 04/22/19 04/22/19 04:05 04:05 04:05 WBC RBC Hgb 11.0 L Hct 32.0 L MCHC RDW 15.8 H Lymph % (Auto) Centre % (Auto) Lymph # Centre # Seg Neutrophils % Seg Neuts % (Manual) 91.0 H Lymphocytes % (Manual) 5.0 L Seg Neutrophils # Lymphocytes # (Manual) 0.2 L PT INR Sodium 132 L Potassium 3.4 L Chloride Carbon Dioxide 18 L BUN 74 H Creatinine 4.8 H Glucose 48 L POC Glucose Lactic Acid Calcium Phosphorus Magnesium AST Total Creatine Kinase 1444 H CK-MB (CK-2) 11.9 H Troponin T 0.097 H Total Protein Albumin LDL Cholesterol Direct Free T4 Urine WBC (Auto) Urine Creatinine 04/22/19 04/22/19 04/22/19 07:57 08:40 14:24 WBC RBC Hgb Hct MCHC RDW Lymph % (Auto) Centre % (Auto) Lymph # Centre # Seg Neutrophils % Seg Neuts % (Manual) Lymphocytes % (Manual) Seg Neutrophils # Lymphocytes # (Manual) PT INR Sodium Potassium Chloride Carbon Dioxide BUN Creatinine Glucose POC Glucose < 40 L 143 H Lactic Acid Calcium Phosphorus Magnesium AST Total Creatine Kinase CK-MB (CK-2) Troponin T Total Protein Albumin LDL Cholesterol Direct Free T4 Urine WBC (Auto) > 182.0 H Urine Creatinine 04/22/19 04/22/19 04/22/19 16:09 18:37 20:25 WBC RBC Hgb Hct MCHC RDW Lymph % (Auto) Centre % (Auto) Lymph # Centre # Seg Neutrophils % Seg Neuts % (Manual) Lymphocytes % (Manual) Seg Neutrophils # Lymphocytes # (Manual) PT INR Sodium Potassium Chloride Carbon Dioxide BUN Creatinine Glucose POC Glucose 177 H 186 H 225 H Lactic Acid Calcium Phosphorus Magnesium AST Total Creatine Kinase CK-MB (CK-2) Troponin T Total Protein Albumin LDL Cholesterol Direct Free T4 Urine WBC (Auto) Urine Creatinine 04/22/19 04/22/19 04/22/19 20:32 21:27 23:30 WBC RBC Hgb Hct MCHC RDW Lymph % (Auto) Centre % (Auto) Lymph # Centre # Seg Neutrophils % Seg Neuts % (Manual) Lymphocytes % (Manual) Seg Neutrophils # Lymphocytes # (Manual) PT INR Sodium Potassium Chloride Carbon Dioxide BUN Creatinine Glucose POC Glucose 140 H 185 H Lactic Acid 2.20 H* Calcium Phosphorus Magnesium AST Total Creatine Kinase CK-MB (CK-2) Troponin T Total Protein Albumin LDL Cholesterol Direct Free T4 Urine WBC (Auto) Urine Creatinine 04/23/19 04/23/19 04/23/19 05:35 05:35 08:52 WBC 22.9 H RBC 3.32 L Hgb 9.6 L Hct 28.3 L MCHC RDW 15.8 H Lymph % (Auto) [place] % (Auto) Lymph # Centre # Seg Neutrophils % Seg Neuts % (Manual) Lymphocytes % (Manual) Seg Neutrophils # Lymphocytes # (Manual) PT INR Sodium Potassium 3.2 L Chloride 111.2 H Carbon Dioxide BUN 48 H Creatinine 2.0 H D Glucose 102 H POC Glucose Lactic Acid Calcium 8.3 L Phosphorus 2.20 L D Magnesium AST Total Creatine Kinase 456 H CK-MB (CK-2) Troponin T 0.042 H D Total Protein Albumin LDL Cholesterol Direct Free T4 Urine WBC (Auto) Urine Creatinine 52.5 H 04/23/19 04/23/19 04/23/19 14:24 16:49 18:14 WBC RBC Hgb Hct MCHC RDW Lymph % (Auto) Centre % (Auto) Lymph # Centre # Seg Neutrophils % Seg Neuts % (Manual) Lymphocytes % (Manual) Seg Neutrophils # Lymphocytes # (Manual) PT INR Sodium Potassium Chloride Carbon Dioxide BUN Creatinine Glucose POC Glucose 164 H 138 H 128 H Lactic Acid Calcium Phosphorus Magnesium AST Total Creatine Kinase CK-MB (CK-2) Troponin T Total Protein Albumin LDL Cholesterol Direct Free T4 Urine WBC (Auto) Urine Creatinine 04/23/19 04/23/19 04/24/19 20:09 21:35 00:05 WBC RBC Hgb Hct MCHC RDW Lymph % (Auto) Centre % (Auto) Lymph # Centre # Seg Neutrophils % Seg Neuts % (Manual) Lymphocytes % (Manual) Seg Neutrophils # Lymphocytes # (Manual) PT INR Sodium Potassium Chloride Carbon Dioxide BUN Creatinine Glucose POC Glucose 197 H 265 H 232 H Lactic Acid Calcium Phosphorus Magnesium AST Total Creatine Kinase CK-MB (CK-2) Troponin T Total Protein Albumin LDL Cholesterol Direct Free T4 Urine WBC (Auto) Urine Creatinine 04/24/19 04/24/19 04/24/19 01:51 04:26 05:35 WBC RBC Hgb Hct MCHC RDW Lymph % (Auto) Centre % (Auto) Lymph # Centre # Seg Neutrophils % Seg Neuts % (Manual) Lymphocytes % (Manual) Seg Neutrophils # Lymphocytes # (Manual) PT INR Sodium Potassium Chloride Carbon Dioxide BUN Creatinine Glucose POC Glucose 190 H 193 H 180 H Lactic Acid Calcium Phosphorus Magnesium AST Total Creatine Kinase CK-MB (CK-2) Troponin T Total Protein Albumin LDL Cholesterol Direct Free T4 Urine WBC (Auto) Urine Creatinine 04/24/19 04/24/19 04/24/19 05:45 05:45 08:59 WBC 12.7 H RBC 3.32 L Hgb 9.5 L Hct 28.2 L MCHC RDW 16.3 H Lymph % (Auto) Centre % (Auto) Lymph # Centre # Seg Neutrophils % Seg Neuts % (Manual) Lymphocytes % (Manual) Seg Neutrophils # Lymphocytes # (Manual) PT INR Sodium Potassium 3.5 L Chloride 107.9 H Carbon Dioxide BUN Creatinine Glucose 191 H POC Glucose 158 H Lactic Acid Calcium 8.2 L Phosphorus 1.30 L D Magnesium 1.50 L AST Total Creatine Kinase 217 H CK-MB (CK-2) Troponin T Total Protein Albumin LDL Cholesterol Direct Free T4 Urine WBC (Auto) Urine Creatinine 04/24/19 04/24/19 04/25/19 12:11 21:05 03:28 WBC RBC Hgb Hct MCHC RDW Lymph % (Auto) Centre % (Auto) Lymph # Centre # Seg Neutrophils % Seg Neuts % (Manual) Lymphocytes % (Manual) Seg Neutrophils # Lymphocytes # (Manual) PT INR Sodium Potassium Chloride Carbon Dioxide BUN Creatinine 0.7 L Glucose 197 H POC Glucose 189 H 172 H Lactic Acid Calcium 8.2 L Phosphorus 1.30 L Magnesium AST Total Creatine Kinase CK-MB (CK-2) Troponin T Total Protein Albumin LDL Cholesterol Direct Free T4 Urine WBC (Auto) Urine Creatinine 04/25/19 04/25/19 04/25/19 03:28 07:48 11:27 WBC RBC 3.36 L Hgb 9.8 L Hct 28.7 L MCHC RDW 16.1 H Lymph % (Auto) Centre % (Auto) Lymph # Centre # Seg Neutrophils % Seg Neuts % (Manual) Lymphocytes % (Manual) Seg Neutrophils # Lymphocytes # (Manual) PT INR Sodium Potassium Chloride Carbon Dioxide BUN Creatinine Glucose POC Glucose 159 H 178 H Lactic Acid Calcium Phosphorus Magnesium AST Total Creatine Kinase CK-MB (CK-2) Troponin T Total Protein Albumin LDL Cholesterol Direct Free T4 Urine WBC (Auto) Urine Creatinine 04/25/19 04/25/19 04/26/19 16:37 20:55 06:06 WBC RBC Hgb Hct MCHC RDW Lymph % (Auto) Centre % (Auto) Lymph # Centre # Seg Neutrophils % Seg Neuts % (Manual) Lymphocytes % (Manual) Seg Neutrophils # Lymphocytes # (Manual) PT INR Sodium Potassium Chloride Carbon Dioxide BUN Creatinine 0.6 L Glucose 153 H POC Glucose 165 H 231 H Lactic Acid Calcium 8.2 L Phosphorus 2.10 L D Magnesium AST Total Creatine Kinase CK-MB (CK-2) Troponin T Total Protein 6.0 L Albumin 2.2 L LDL Cholesterol Direct Free T4 Urine WBC (Auto) Urine Creatinine 04/26/19 04/26/19 04/26/19 06:06 07:42 12:56 WBC RBC 3.27 L Hgb 9.6 L Hct 27.9 L MCHC RDW 15.8 H Lymph % (Auto) Centre % (Auto) 12.1 H Lymph # Centre # 0.9 H Seg Neutrophils % Seg Neuts % (Manual) Lymphocytes % (Manual) Seg Neutrophils # Lymphocytes # (Manual) PT INR Sodium Potassium Chloride Carbon Dioxide BUN Creatinine Glucose POC Glucose 168 H 241 H Lactic Acid Calcium Phosphorus Magnesium AST Total Creatine Kinase CK-MB (CK-2) Troponin T Total Protein Albumin LDL Cholesterol Direct Free T4 Urine WBC (Auto) Urine Creatinine 04/26/19 04/26/19 04/27/19 16:21 21:27 05:11 WBC RBC 3.08 L Hgb 9.1 L Hct 26.3 L MCHC 35 H RDW 15.5 H Lymph % (Auto) Centre % (Auto) 11.3 H Lymph # Centre # Seg Neutrophils % Seg Neuts % (Manual) Lymphocytes % (Manual) Seg Neutrophils # Lymphocytes # (Manual) PT INR Sodium Potassium Chloride Carbon Dioxide BUN Creatinine Glucose POC Glucose 240 H 301 H Lactic Acid Calcium Phosphorus Magnesium AST Total Creatine Kinase CK-MB (CK-2) Troponin T Total Protein Albumin LDL Cholesterol Direct Free T4 Urine WBC (Auto) Urine Creatinine 04/27/19 04/27/19 04/27/19 05:11 07:33 11:48 WBC RBC Hgb Hct MCHC RDW Lymph % (Auto) Centre % (Auto) Lymph # Centre # Seg Neutrophils % Seg Neuts % (Manual) Lymphocytes % (Manual) Seg Neutrophils # Lymphocytes # (Manual) PT INR Sodium Potassium 3.4 L Chloride Carbon Dioxide BUN Creatinine 0.7 L Glucose 124 H POC Glucose 144 H 170 H Lactic Acid Calcium 8.2 L Phosphorus 2.40 L Magnesium 1.60 L AST Total Creatine Kinase CK-MB (CK-2) Troponin T Total Protein 6.1 L Albumin 2.3 L LDL Cholesterol Direct Free T4 Urine WBC (Auto) Urine Creatinine
--- NOTE | 2019-04-27 19:55 | Progress Note ---
Assessment and Plan 84-year-old male with a history of CHF, coronary artery disease, diabetes, hypertension, hyperlipidemia, PVD was brought to the emergency room by family because of generalized weakness. His blood sugar and blood pressure were low at home. He has poor appetite over the last 2 months, only at breakfast today, took his medications. He needs assistance to ambulate. Found to have sepsis from UTI. On iv antibiotic. Acute kidney injury Hypotension, corrected likey from septic shock - corrected Abnormal cardiac enzymes hypoglycemia improved Rhabdomyolysis CHF, stable Coronary Artery disease Hyperlipidemia Peripheral vascular disease UTI to r/o sepsis Hypomagnesemia Hypophosphatemia -replete further Plan Continue D5NS Replace, Phos, Mg and recheck in am Nephrology following monitor blood sugar, encourage oral intake, placed on Renal diet for now Hold all antihypertensives and diabetic medications Ceftriaxone for UTI and sepsis DVT prophylaxis with Lovenox. Off dopamine Code status: Pt is full code. Disposition: Possible d/c in am Subjective Date of service: 04/27/19 Principal diagnosis: Acute kidney injury, PAD, Sepsis, hypomagnesemia, hypoglycemia Interval history: Pt seen and examined. No fever, chest pain or shortness of breath. still has low phosphorus Objective - Exam Narrative Exam: Constitutional: Well-nourished well-developed. In no distress Head: Normocephalic atraumatic Eyes: Pupils are equal round and reactive to light Nose: No enlarged turbinates, no septal deviation. Mouth: Moist mucous membranes. Neck: Supple no thyromegaly. No bruit. No JVD Heart: Regular rate and rhythm, S1-S2 normal. No rubs murmurs or gallop Lungs: Clear to auscultation bilaterally. no rales or rhonchi Abdomen: Soft, nontender. Bowel sound are present. Extremities: no edema, no cyanosis, no clubbing. Ulcer in both feet Neuro: Alert oriented Oriented x3. No focal sensory or motor deficit. Skin: No rashes or hyperpigmented spots Musculoskeletal system: No joint pain or swelling Hematological: No petechia or subcutanous hemorrhages. Immunological: No multiple septic spots on the skin Lymphatic: No generalized lymphadenopathy Psychiatry: Euthymic. Calm. - Constitutional Vitals: Vital Signs - 12hr 04/27/19 04/27/19 04/27/19 08:44 09:12 09:27 Temperature 98.1 F Pulse Rate 91 H Pulse Rate [ 85 82 Anterior Bilateral Throughout] Respiratory 16 Rate Respiratory 18 18 Rate [Anterior Bilateral Throughout] Blood Pressure 129/65 O2 Sat by Pulse 97 96 Oximetry 04/27/19 04/27/19 04/27/19 12:41 12:42 14:59 Temperature 98.4 F Pulse Rate 83 40 L Pulse Rate [ 67 Anterior Bilateral Throughout] Respiratory 18 Rate Respiratory 18 Rate [Anterior Bilateral Throughout] Blood Pressure 126/63 O2 Sat by Pulse 96 Oximetry 04/27/19 04/27/19 04/27/19 15:19 19:12 19:20 Temperature Pulse Rate Pulse Rate [ 81 65 77 Anterior Bilateral Throughout] Respiratory Rate Respiratory 18 18 18 Rate [Anterior Bilateral Throughout] Blood Pressure O2 Sat by Pulse 94 Oximetry - Labs CBC & Chem 7: 04/27/19 05:11 04/27/19 05:11 Labs: Abnormal lab results 04/26/19 04/27/19 04/27/19 Range/Units 21:27 05:11 05:11 RBC 3.08 L (3.65-5.03) M/mm3 Hgb 9.1 L (11.8-15.2) gm/dl Hct 26.3 L (35.5-45.6) % MCHC 35 H (32-34) % RDW 15.5 H (13.2-15.2) % [place] % (Auto) 11.3 H (0.0-7.3) % Potassium 3.4 L (3.6-5.0) mmol/L Creatinine 0.7 L (0.8-1.5) mg/dL Glucose 124 H (75-100) mg/dL POC Glucose 301 H (70-105) Calcium 8.2 L (8.4-10.2) mg/dL Phosphorus 2.40 L (2.5-4.5) mg/dL Magnesium 1.60 L (1.7-2.3) mg/dL Total Protein 6.1 L (6.3-8.2) g/dL Albumin 2.3 L (3.9-5) g/dL 04/27/19 04/27/19 04/27/19 Range/Units 07:33 11:48 16:23 RBC (3.65-5.03) M/mm3 Hgb (11.8-15.2) gm/dl Hct (35.5-45.6) % MCHC (32-34) % RDW (13.2-15.2) % [place] % (Auto) (0.0-7.3) % Potassium (3.6-5.0) mmol/L Creatinine (0.8-1.5) mg/dL Glucose (75-100) mg/dL POC Glucose 144 H 170 H 206 H (70-105) Calcium (8.4-10.2) mg/dL Phosphorus (2.5-4.5) mg/dL Magnesium (1.7-2.3) mg/dL Total Protein (6.3-8.2) g/dL Albumin (3.9-5) g/dL
[2019-04-27] MEDS ORDERED: MAGNESIUM SULFATE 2GM/50ML 2 GM/50 ML BAG IV ONE (20:30)
[2019-04-27] MEDS: PRAVACHOL PO SCH (21:07)
[2019-04-28] MEDS: DUONEB *Not for PRN Use IH SCH ×2 (01:50→07:34)
[2019-04-28 04:30] LABS: Basophils # (Auto) 0.1 K/mm3 (0.0-0.1); Basophils % (Auto) 0.9 % (0.0-1.8); Eosinophils # (Auto) 0.2 K/mm3 (0.0-0.4); Eosinophils % (Auto) 2.8 % (0.0-4.3); Hematocrit 26.5 % (35.5-45.6); Hemoglobin 9.1 gm/dl (11.8-15.2); Lymphocytes # (Auto) 1.3 K/mm3 (1.2-5.4); Lymphocytes % (Auto) 16.8 % (13.4-35.0); Mean Corpuscular HGB Conc 34 % (32-34); Mean Corpuscular Volume 86 fl (84-94); Monocytes # (Auto) 0.6 K/mm3 (0.0-0.8); Monocytes % (Auto) 8.4 % (0.0-7.3); Platelet Count 229 K/mm3 (140-440); Red Blood Count 3.09 M/mm3 (3.65-5.03); Red Cell Distribution Width 15.8 % (13.2-15.2)
[2019-04-28 04:55] LABS: Alanine Aminotransferase 10 units/L (7-56); Albumin 2.5 g/dL (3.9-5); BUN/Creatinine Ratio 13; Blood Urea Nitrogen 9 mg/dL (9-20); Calcium 8.1 mg/dL (8.4-10.2); Hemolysis Index 10
[2019-04-28 08:47] VITALS: BP 118/43
--- NOTE | 2019-04-28 09:13 | Discharge Summary ---
Providers - Providers Date of Admission: 04/21/19 23:08 Date of discharge: 04/28/19 Attending physician: NAIMA PAZ 04/21/19 20:24 Consult to Physician [CONS] Urgent Comment: Dr. Pak spoke with Dr. Pak @ 2022 Consulting Provider: LISSETH RM Physician Instructions: Reason For Exam: new onset renal failure 04/21/19 22:11 Consult to Physician [CONS] Routine Comment: Consulting Provider: ZAMZAM POSEY Physician Instructions: Reason For Exam: cc 04/23/19 08:08 Consult to Physician [CONS] Routine Comment: Consulting Provider: MAI LEYVA Physician Instructions: Reason For Exam: UTI, poss sepsis 04/25/19 02:23 Consult to Wound/ET Nurse [CONS] Routine Reason For Exam: wound eval Primary care physician: NAIMA PAZ Hospitalization Reason for admission: Sepsis with septic shock from UTI, hypoglycemia Condition: Stable Pertinent studies: cxr that showed mild cardiomegaly and COPD ECHO that showed LVEF of 30-35% with mild systolic dysfunction Procedures: none Hospital course: 84-year-old male with a history of CHF, coronary artery disease, diabetes, hypertension, hyperlipidemia, PVD was brought to the emergency room by family because of generalized weakness. His blood sugar and blood pressure were low at home. He has poor appetite over the last 2 months, only at breakfast today, took his medications. Ambulate with wheel cahir at base line. UA was remarkable to UTI. BUN was 48 and creatinine 2. . Ws commence on iv antibiotic after blood and urine Cultures. D50 to improve glycemic level and discontinued his glimiperide. Nephrology consult was obtained. With iv hydration renal function improved back to normal. ECHO shoed EF of 30-35 %. Pt has a pacemaker in place. Had Electrolyte imbalance there were corrected. Leukocytosis resolved and blood sugar improved. Pt's weakness improved and strength regained back to base line. 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 Disposition: TO HOME OR SELFCARE Time spent for discharge: 40 mins - Discharge Diagnoses (1) Sepsis with acute renal failure and septic shock Status: Acute (2) Acute on chronic renal failure Status: Acute (3) Anemia Status: Acute (4) Chronic CHF Status: Acute (5) Hypoglycemia Status: Acute Core Measure Documentation - Palliative Care Palliative Care/ Comfort Measures: Not Applicable - Core Measures Any of the following diagnoses?: heart failure - Heart Failure Discharge Requirements GANGA/ARB for LVSD if EF <40%: Yes Beta arben at discharge: Yes Exam - Physical Exam Narrative exam: Constitutional: Well-nourished well-developed. In no distress Head: Normocephalic atraumatic Eyes: Pupils are equal round and reactive to light Nose: No enlarged turbinates, no septal deviation. Mouth: Moist mucous membranes. Neck: Supple no thyromegaly. No bruit. No JVD Heart: Regular rate and rhythm, S1-S2 normal. No rubs murmurs or gallop Lungs: Clear to auscultation bilaterally. no rales or rhonchi Abdomen: Soft, nontender. Bowel sound are present. Extremities: no edema, no cyanosis, no clubbing. Ulcer in both feet Neuro: Alert oriented Oriented x3. No focal sensory or motor deficit. Skin: No rashes or hyperpigmented spots Musculoskeletal system: No joint pain or swelling Hematological: No petechia or subcutanous hemorrhages. Immunological: No multiple septic spots on the skin Lymphatic: No generalized lymphadenopathy Psychiatry: Euthymic. Calm. - Constitutional Vitals: Temp Pulse Resp BP Pulse Ox 98.3 F 40 L 40 H 118/43 95 04/28/19 07:49 04/28/19 07:49 04/28/19 07:49 04/28/19 07:49 04/28/19 07:49 Plan Activity: fall precautions Weight Bearing Status: Non-Weight Bearing Diet: diabetic Follow up with: NAIMA PAZ MD [Primary Care Provider] - 3-5 Days Prescriptions: Aspirin EC 81 mg PO QDAY #30 tablet. Carvedilol [Coreg] 6.25 mg PO BID #60 tablet Ipratropium/Albuterol Sulfate [DUONEB *Not for PRN Use*] 1 ampul IH Q6HR #100 ampul.neb Potassium Chloride [K-Dur] 20 meq PO QDAY #30 tablet Furosemide [Lasix TAB] 20 mg PO DAILY #30 tablet amLODIPine [Norvasc] 10 mg PO DAILY #30 tablet Cilostazol [Pletal] 50 mg PO BID #60 tablet Pravastatin [Pravachol] 40 mg PO QHS #30 tablet Lisinopril [Zestril TAB] 5 mg PO QDAY #30 tablet
[2019-04-28] MEDS: PLETAL PO SCH (09:22)
[2019-04-28] MEDS: LOVENOX SUB-Q SCH (09:22)
[2019-04-28] MEDS: BABY ASPIRIN PO SCH (09:23)
[2019-04-28] MEDS: ROCEPHIN/NS 1 GM/50 ML 1 GM/50 ML BAG IV SCH (09:23)
[2019-04-28] MEDS: COREG PO SCH (09:24)
[2019-04-28] MEDS: HumaLOG SUB-Q SCH (09:24)
[2019-04-28] MEDS: SODIUM CHLORIDE FLUSH SYRINGE 10 ML IV SCH (09:25)
[2019-04-28] MEDS: ZESTRIL PO SCH (09:25)
[2019-04-28] MEDS: TYLENOL PO PRN (09:30)
--- NOTE | 2019-04-28 10:21 | Progress Note ---
Assessment and Plan 1. Acute kidney injury: Vasomotor SOFYA in the setting of hypotension. Renal US was negative for hydro. Renal function is better. Monitor renal function. Avoid nephrotoxic agents. Meds dosage based on GFR. 2. FEN: Hypokalemia, replete K. Anion gap MA, improved. Monitor lytes. 3. Hypotension / shock: Off pressors. 4. Suspected sepsis: UTI. 5. Hypoglycemia: Improved. 6. H/o CHF. 7. Anemia: Monitor H/H. Will sign off. Subjective Date of service: 04/28/19 Principal diagnosis: Acute kidney injury, PAD, Sepsis, hypomagnesemia, hypoglycemia Interval history: Patient was seen and examined at the bedside. Doing ok. Objective - Vital Signs Vital signs: Vital Signs - 12hr 04/27/19 04/28/19 04/28/19 23:31 01:50 02:01 Temperature 98.0 F Pulse Rate 37 L Pulse Rate [ 43 L Anterior Bilateral Throughout] Respiratory 18 Rate Respiratory 18 18 Rate [Anterior Bilateral Throughout] Blood Pressure 106/39 O2 Sat by Pulse 93 Oximetry 04/28/19 04/28/19 04/28/19 04:19 07:34 07:47 Temperature 98.0 F Pulse Rate 78 Pulse Rate [ 69 65 Anterior Bilateral Throughout] Respiratory 18 Rate Respiratory 16 16 Rate [Anterior Bilateral Throughout] Blood Pressure 133/58 O2 Sat by Pulse 95 97 Oximetry 04/28/19 04/28/19 07:49 09:24 Temperature 98.3 F Pulse Rate 40 L 40 L Pulse Rate [ Anterior Bilateral Throughout] Respiratory 40 H Rate Respiratory Rate [Anterior Bilateral Throughout] Blood Pressure 118/43 118/43 O2 Sat by Pulse 95 Oximetry - General Appearance General appearance: well-developed, well-nourished, appears stated age, other (no distress) EENT: ATNC, PERRL, vision intact, hearing diminished Neck: supple Respiratory: Present: Clear to Ascultation Cardiology: regular, S1S2, no murmurs Gastrointestinal: normoactive bowel sounds, no tenderness, no distended Integumentary: ulcer (LE), chronic venous stasis Neurologic: no focal deficit, no asterixis, alert and oriented x3 Musculoskeletal: other (no edema) Psychiatric: cooperative - Lab 04/28/19 03:25 04/28/19 03:25 Most recent lab results Calcium 8.1 mg/dL (8.4-10.2) L 04/28/19 03:25 Phosphorus 2.90 mg/dL (2.5-4.5) D 04/28/19 03:25 Magnesium 2.00 mg/dL (1.7-2.3) 04/28/19 03:25 52.5 mg/dL (0.1-20.0) H 04/23/19 08:52 59 mmol/L 04/23/19 08:52 Medications & Allergies - Medications Allergies/Adverse Reactions: Allergies No Known Allergies Allergy (Unverified 01/10/15 13:46) Home Medications: Home Medications Medication Instructions Recorded Confirmed Last Taken Type Albuterol Sulfate [Ventolin HFA] 1 puff IH QID PRN 05/11/18 04/22/19 Unknown History Aspirin EC 81 mg PO QDAY #30 tablet. 04/28/19 Unknown Rx Carvedilol [Coreg] 6.25 mg PO BID #60 tablet 04/28/19 Unknown Rx Cilostazol [Pletal] 50 mg PO BID #60 tablet 04/28/19 Unknown Rx Furosemide [Lasix TAB] 20 mg PO DAILY #30 tablet 04/28/19 Unknown Rx Ipratropium/Albuterol Sulfate 1 ampul IH Q6HR #100 ampul.neb 04/28/19 Unknown Rx [DUONEB *Not for PRN Use*] Lisinopril [Zestril TAB] 5 mg PO QDAY #30 tablet 04/28/19 Unknown Rx Potassium Chloride [K-Dur] 20 meq PO QDAY #30 tablet 04/28/19 Unknown Rx Pravastatin [Pravachol] 40 mg PO QHS tablet 04/28/19 Unknown Rx Pravastatin [Pravachol] 40 mg PO QHS #30 tablet 04/28/19 Unknown Rx amLODIPine [Norvasc] 10 mg PO DAILY #30 tablet 04/28/19 Unknown Rx Active Medications: Generic Name Dose Route Start Last Admin Trade Name Freq PRN Reason Stop Dose Admin Acetaminophen 650 mg 04/21/19 22:11 04/28/19 09:30 Tylenol PO 650 mg Q4H PRN Administration Pain MILD(1-3)/Fever >100.5/BLAKE Albuterol/Ipratropium 1 ampul 04/26/19 12:00 04/28/19 07:34 Duoneb *Not For Prn Use* IH 1 ampul Q6HR ALICIA Administration Aspirin 81 mg 04/23/19 10:00 04/28/19 09:23 Baby Aspirin PO 81 mg QDAY ALICIA Administration Carvedilol 6.25 mg 04/25/19 22:00 04/28/19 09:24 Coreg PO Not Given BID [facility] Cilostazol 50 mg 04/26/19 10:00 04/28/19 09:22 Pletal PO 50 mg BID ALICIA Administration Dextrose 25 gm 04/22/19 08:01 D50w (25gm) Vial IV PRN PRN Hypoglycemia Enoxaparin Sodium 40 mg 04/26/19 10:00 04/28/19 09:22 Lovenox SUB-Q 40 mg QDAY@1000 ALICIA Administration Ceftriaxone Sodium 1 gm in 50 mls @ 100 mls/hr 04/26/19 10:00 04/28/19 09:23 Rocephin/Ns 1 Gm/50 Ml IV 04/28/19 23:59 100 mls/hr Q24HR ALICIA Administration Protocol Insulin Human Lispro 0 unit 04/26/19 16:30 04/28/19 09:24 Humalog SUB-Q Not Given ACHS [facility] Protocol Lisinopril 5 mg 04/25/19 11:00 04/28/19 09:25 Zestril PO Not Given QDAY [facility] Ondansetron HCl 4 mg 04/21/19 22:11 Zofran IV Q4H PRN Nausea And Vomiting Pravastatin Sodium 40 mg 04/22/19 22:00 04/27/19 21:07 Pravachol PO 40 mg QHS ALICIA Administration Sodium Chloride 10 ml 04/22/19 10:00 04/28/19 09:25 Sodium Chloride Flush Syringe 10 Ml IV 10 ml BID ALICIA Administration Sodium Chloride 10 ml 04/21/19 22:11 Sodium Chloride Flush Syringe 10 Ml IV PRN PRN LINE FLUSH
== END 2019-04-28 11:20 | disposition home or self-care (01) | DRG 871 ==
LOC: ED 18:45 → IMCU 23:08 → CC1 04-22 00:15 → 4A 04-24 11:45
PROVIDERS: ADMIT Internal Medicine; ATTEND Family Medicine
DX: A41.9 Sepsis, unspecified organism (principal); I21.A1 Myocardial infarction type 2; R65.21 Severe sepsis with septic shock; I13.0 Hypertensive heart and chronic kidney disease with heart failure and stage 1 through stage 4 chronic kidney disease, or unspecified chronic kidney disease; M62.82 Rhabdomyolysis; I50.22 Chronic systolic (congestive) heart failure; N39.0 Urinary tract infection, site not specified; N17.9 Acute kidney failure, unspecified; I25.5 Ischemic cardiomyopathy; I34.0 Nonrheumatic mitral (valve) insufficiency; T38.3X5A Adverse effect of insulin and oral hypoglycemic [antidiabetic] drugs, initial encounter; E11.649 Type 2 diabetes mellitus with hypoglycemia without coma; E11.22 Type 2 diabetes mellitus with diabetic chronic kidney disease; N18.9 Chronic kidney disease, unspecified; E87.6 Hypokalemia; I25.10 Atherosclerotic heart disease of native coronary artery without angina pectoris; E78.5 Hyperlipidemia, unspecified; E11.51 Type 2 diabetes mellitus with diabetic peripheral angiopathy without gangrene; Z82.49 Family history of ischemic heart disease and other diseases of the circulatory system; Z95.810 Presence of automatic (implantable) cardiac defibrillator; Z79.51 Long term (current) use of inhaled steroids; Z79.82 Long term (current) use of aspirin; Z79.899 Other long term (current) drug therapy; Z95.5 Presence of coronary angioplasty implant and graft; Y92.098 Other place in other non-institutional residence as the place of occurrence of the external cause; Z79.84 Long term (current) use of oral hypoglycemic drugs
CPT/HCPCS: 36415; 71045; 71046; 76770; 80048; 80053; 80061; 81001; 82140; 82533; 82550; 82553; 82570; 82962; 83036; 83735; 83970; 84100; 84300; 84439; 84443; 84484; 85007; 85025; 85027; 85610; 85730; 87040; 87086; 93005; 93010; 93306; 94640; 94644; 94760; G0378; A9270-GY; J0696; J1265; J1650; J1815; J2543; J3475; J7040; J7042; J7050; J7070

== ENCOUNTER 2019-08-15 11:16 | Emergency (ER) | payer MEDICARE ==
--- NOTE | 2019-08-15 11:32 | Emergency Department Report ---
Blank Doc - Documentation Documentation: 84-year-old male that presents with right foot amputation complications of inf ection. Was sent by home nurse. This initial assessment/diagnostic orders/clinical plan/treatment(s) is/are subject to change based on patient's health status, clinical progression and re-assessment by fellow clinical providers in the ED. Further treatment and workup at subsequent clinical providers discretion. Patient/guardians urged not to elope from the ED as their condition may be serious if not clinically assessed and managed. Initial orders include: 1- Patient sent to [facility] for further evaluation and treatment 2- labs
[2019-08-15 12:40] LABS: Basophils # (Auto) 0.1 K/mm3 (0.0-0.1); Basophils % (Auto) 2.1 % (0.0-1.8); Eosinophils # (Auto) 0.1 K/mm3 (0.0-0.4); Eosinophils % (Auto) 1.6 % (0.0-4.3); Hematocrit 29.4 % (35.5-45.6); Hemoglobin 9.6 gm/dl (11.8-15.2); Lymphocytes # (Auto) 0.8 K/mm3 (1.2-5.4); Lymphocytes % (Auto) 14.1 % (13.4-35.0); Mean Corpuscular HGB Conc 33 % (32-34); Mean Corpuscular Volume 88 fl (84-94); Monocytes # (Auto) 0.4 K/mm3 (0.0-0.8); Monocytes % (Auto) 7.7 % (0.0-7.3); Platelet Count 389 K/mm3 (140-440); Red Blood Count 3.35 M/mm3 (3.65-5.03); Red Cell Distribution Width 19.1 % (13.2-15.2)
[2019-08-15 13:01] LABS: BUN/Creatinine Ratio 23; Blood Urea Nitrogen 14 mg/dL (9-20); Calcium 8.6 mg/dL (8.4-10.2); Hemolysis Index 0
--- NOTE | 2019-08-15 19:04 | Emergency Department Report ---
HPI - General Chief Complaint: Extremity Problem,Nontraumatic Time Seen by Provider: 08/15/19 11:29 - HPI HPI: Room 24 The patient is a 84-year-old male presenting with a chief complaint of right foot wound. Patient states he had toes capitated off of his right foot approximately 2 weeks ago. The patient states she has a home health nurse come by for dressing changes. The nurse came by today and told the patient come to the hospital for evaluation as he might have a foot infection. The patient states she did not mention why she thought he might have a foot infection. The patient states he is asymptomatic. Patient states "I'm feeling good." Patient denies history of fever Location: [See above] Duration: [See above] Quality: [See above] Severity: [See above] Timing: [See above] Context: [See above] Modifying factors: [See above] Associated signs and symptoms: [see above] ED Past Medical Hx - Past Medical History Previous Medical History?: Yes Hx Hypertension: Yes Hx Congestive Heart Failure: Yes (EF 30-35%) Hx Diabetes: Yes - Surgical History Past Surgical History?: Yes Hx Pacemaker: Yes (AICD) Hx Internal Defibrillator: Yes - Family History Family history: no significant - Social History Smoking Status: Former Smoker (none 5 years) Substance Use Type: None - Medications Home Medications: Home Medications Medication Instructions Recorded Confirmed Last Taken Type Albuterol Sulfate [Ventolin HFA] 1 puff IH QID PRN 05/11/18 04/22/19 Unknown History Aspirin EC [Halfprin EC] 81 mg PO QDAY #30 tablet. 04/28/19 Unknown Rx Carvedilol [Coreg] 6.25 mg PO BID #60 tablet 04/28/19 Unknown Rx Cilostazol [Pletal] 50 mg PO BID #60 tablet 04/28/19 Unknown Rx Furosemide [Lasix TAB] 20 mg PO DAILY #30 tablet 04/28/19 Unknown Rx Ipratropium/Albuterol Sulfate 1 ampul IH Q6HR #100 ampul.lola 04/28/19 Unknown Rx [DUONEB *Not for PRN Use*] Lisinopril [Zestril TAB] 5 mg PO QDAY #30 tablet 04/28/19 Unknown Rx Potassium Chloride [K-Dur] 20 meq PO QDAY #30 tablet 04/28/19 Unknown Rx Pravastatin [Pravachol] 40 mg PO QHS tablet 04/28/19 Unknown Rx Pravastatin [Pravachol] 40 mg PO QHS #30 tablet 04/28/19 Unknown Rx amLODIPine 10 mg PO DAILY #30 tablet 04/28/19 Unknown Rx Ciprofloxacin HCl [Ciprofloxacin 500 mg PO Q12HR #14 tab 08/15/19 Unknown Rx TAB] ED Review of Systems ROS: Stated complaint: POSS FOOT INFECTED/PAIN/DOC SENT Other details as noted in HPI Constitutional: denies: fever Eyes: denies: eye pain ENT: denies: throat pain Respiratory: no symptoms reported Cardiovascular: denies: chest pain Endocrine: no symptoms reported Gastrointestinal: denies: abdominal pain Genitourinary: denies: dysuria Musculoskeletal: denies: back pain Skin: denies: rash Neurological: denies: weakness Physical Exam - Physical Exam Vital Signs: Vital Signs 08/15/19 11:29 Temperature 97.5 F L Pulse Rate 87 Respiratory 16 Rate Blood Pressure 128/66 O2 Sat by Pulse 98 Oximetry Physical Exam: GENERAL: The patient is well-developed well-nourished male lying on stretcher n ot appearing to be in acute distress. [] HEENT: Normocephalic. Atraumatic. Extraocular motions are intact. Patient has moist mucous membranes. NECK: Trachea midline CHEST/LUNGS: There is no respiratory distress noted. HEART/CARDIOVASCULAR: Regular. There is no tachycardia. SKIN: There is healthy pink granulation tissue at the site of the right foot toe amputations. Dressing has yellow discharge present a slightly malodorous. No evidence of cellulitis. NEURO: The patient is awake, alert, and oriented. The patient is cooperative. The patient has no focal neurologic deficits. The patient has normal speech MUSCULOSKELETAL: There is no evidence of acute injury. ED Course Vital Signs 08/15/19 11:29 Temperature 97.5 F L Pulse Rate 87 Respiratory 16 Rate Blood Pressure 128/66 O2 Sat by Pulse 98 Oximetry ED Medical Decision Making - Lab Data Result diagrams: 08/15/19 11:41 08/15/19 11:41 Laboratory Tests 08/15/19 08/15/19 11:41 11:41 WBC 5.6 RBC 3.35 L Hgb 9.6 L Hct 29.4 L MCV 88 MCH 29 MCHC 33 RDW 19.1 H Plt Count 389 Lymph % (Auto) 14.1 [place] % (Auto) 7.7 H Eos % (Auto) 1.6 Baso % (Auto) 2.1 H Lymph # 0.8 L [place] # 0.4 Eos # 0.1 Baso # 0.1 Seg Neutrophils % 74.5 H Seg Neutrophils # 4.1 Sodium 141 Potassium 3.9 Chloride 103.7 Carbon Dioxide 24 Anion Gap 17 BUN 14 Creatinine 0.6 L Estimated GFR > 60 BUN/Creatinine Ratio 23 Glucose 100 Calcium 8.6 - Differential Diagnosis wound infection, Critical care attestation.: If time is entered above; I have spent that time in minutes in the direct care of this critically ill patient, excluding procedure time. ED Disposition Clinical Impression: Drainage from wound Disposition: DC-01 TO HOME OR SELFCARE Is pt being admited?: No Does the pt Need Aspirin: No Condition: Stable Additional Instructions: Return to the emergency department should you develop worsening symptoms, inability to tolerate food or liquids, high fever or any other concerns Prescriptions: Ciprofloxacin HCl [Ciprofloxacin TAB] 500 mg PO Q12HR #14 tab Referrals: NAIMA PAZ MD [Primary Care Provider] - 3-5 Days Time of Disposition: 19:09
[2019-08-15 19:36] VITALS: BP 136/67
== END 2019-08-15 19:57 | disposition home or self-care (01) ==
LOC: ED 11:16
DX: S91.301A Unspecified open wound, right foot, initial encounter (principal); I11.0 Hypertensive heart disease with heart failure; I50.9 Heart failure, unspecified; E11.9 Type 2 diabetes mellitus without complications; Z95.5 Presence of coronary angioplasty implant and graft; Z87.891 Personal history of nicotine dependence; Z98.890 Other specified postprocedural states; X58.XXXA Exposure to other specified factors, initial encounter; Y93.89 Activity, other specified; Y92.89 Other specified places as the place of occurrence of the external cause; Y99.8 Other external cause status
CPT/HCPCS: 36415; 80048; 85025